=== PATIENT | male | born 1945 | race Caucasian/White ===

== ENCOUNTER 2018-08-15 10:46 | Emergency (ER) | payer MEDICARE, SELFPAY ==
[2018-08-15 11:45] VITALS: BP 168/78; PULSE 90; RESP 14; TEMP 36.9; O2SAT 97
--- NOTE | 2018-08-15 13:09 | ED.FALL ---
HPI - Fall <ELIZABETH Pineda - Last Filed: 08/15/18 22:15> General Chief Complaint: Fall Stated Complaint: FELL FRIDAY/POSSIBLE BROKEN RIBS Time Seen by Provider: 08/15/18 12:35 Source: patient Mode of arrival: ambulatory Limitations: no limitations History of Present Illness HPI Narrative: 72-year-old healthy male that is in everyday smoker here for complaint of pain into his right posterior ribcage after ground level fall 2 days ago. He states that he tripped over his pant leg when he was trying to take his pants off when he was going to bed and fell over and hit a piece of furniture to the right lateral ribcage. He denies any other injuries or concerns. He is ambulatory into the emergency room. He denies a cough or shortness of breath. He does state that he does have increased pain pain into that area with deep inspiration and with palpation. He states that when he holds still it helps with the discomfort. complaint: fall Related Data Previous Rx's Medication Instructions Recorded hydrocodone-acetaminophen [Scobey] 1 tab PO Q4-6H PRN #10 tab 08/15/18 Review of Systems <ELIZABETH Pineda - Last Filed: 08/15/18 22:15> Constitutional Denies chills, Denies fever(s), Denies lethargy and Denies weakness Eyes Denies change in vision, Denies eye discharge, Denies irritation and Denies loss of vision ENT Ears, Nose, Mouth, and Throat: Denies change in voice, Denies neck pain, Denies sore throat and Denies throat swelling Cardiovascular Denies chest pain, Denies irregular heart rhythm, Denies lightheadedness, Denies palpitations and Denies orthopnea Respiratory Denies wheezing Comments: Pain to right lateral posterior rib cage after ground level fall Gastrointestinal Gastrointestinal: Denies abdominal pain, Denies change in bowel habits, Denies diarrhea, Denies nausea and Denies vomiting Genitourinary Denies hematuria, Denies flank pain, Denies urinary incontinence and Denies urinary urgency Musculoskeletal Denies neck pain Integumentary/Breasts Denies pruritus, Denies erythema, Denies rash and Denies wounds Neurologic Denies confusion, Denies loss of vision and Denies weakness Psychiatric Denies anxiety, Denies confusion, Denies depression, Denies homicidal ideation and Denies suicidal ideation Endocrine Denies palpitations Hematologic/Lymphatic Denies easy bruising Allergic/Immunologic Denies urticaria, Denies throat swelling and Denies wheezing Exam <ELIZABETH Pineda - Last Filed: 08/15/18 22:15> Initial Vital Signs Initial Vital Signs: Vital Signs Temperature 98.5 F 08/15/18 11:45 Pulse Rate 90 08/15/18 11:45 Respiratory Rate 14 08/15/18 11:45 Blood Pressure 168/78 H 08/15/18 11:45 Pulse Oximetry 97 08/15/18 11:45 Const General: cooperative and well developed Nutritional Appearance: well nourished Orientation: alert, awake, oriented x3 and not confused HENMT Mouth: oral mucosae normal and moist mucous membranes Eyes Conjunctivae: conjunctivae normal Sclera: sclerae normal Pupils: PERRL EOM: EOM intact bilaterally Neck Neck: normal visual inspection, trachea midline, No lymphadenopathy, No midline deformity and No JVD Lymphatic: No lymphedema Chest Chest: normal inspection of the chest Resp Effort & Inspection: normal respiratory effort, able to speak in complete sentences, no respiratory distress and no use of accessory muscles Auscultation: clear to auscultation bilaterally, rales bilaterally, no rhonchi and no wheezes Cardio Rate: regular rate Rhythm: regular rhythm Heart Sounds: no click, no gallops, no murmurs and no rubs Pulses: normal peripheral pulses GI Inspection: non-distended Palpation: soft, no hepatosplenomegaly, No guarding, No pulsatile mass and No tender Auscultation: normal bowel sounds General: No CVA tenderness Skin General: no rashes or lesions noted, No jaundice and No petechiae Neuro General: alert, oriented x3, gait normal and no focal motor deficits Speech: speech normal <Zane Santillan DO - Last Filed: 08/16/18 07:24> Initial Vital Signs Initial Vital Signs: Vital Signs Temperature 98.5 F 08/15/18 11:45 Pulse Rate 90 08/15/18 11:45 Respiratory Rate 14 08/15/18 11:45 Blood Pressure 168/78 H 08/15/18 11:45 Pulse Oximetry 97 08/15/18 11:45 Course <ELIZABETH Pineda - Last Filed: 08/15/18 22:15> Orders Ordered: Discontinued Medications Hydrocodone Bitart/Acetaminophen (Scobey 5/325) 1 tab PO NOW ONE Stop: 08/15/18 13:18 Last Admin: 08/15/18 14:11 Dose: 1 tab Vital Signs - 8 hr 08/15/18 11:45 08/15/18 14:10 Temperature 98.5 F Pulse Rate 90 87 Respiratory Rate 14 15 Blood Pressure 168/78 H Blood Pressure [Right Arm] 158/88 H Pulse Oximetry 97 96 <Zane Santillan DO - Last Filed: 08/16/18 07:24> Orders Ordered: Discontinued Medications Hydrocodone Bitart/Acetaminophen (Scobey 5/325) 1 tab PO NOW ONE Stop: 08/15/18 13:18 Last Admin: 08/15/18 14:11 Dose: 1 tab Vital Signs - 8 hr 08/15/18 11:45 08/15/18 14:10 Temperature 98.5 F Pulse Rate 90 87 Respiratory Rate 14 15 Blood Pressure 168/78 H Blood Pressure [Right Arm] 158/88 H Pulse Oximetry 97 96 MDM - Fall <ELIZABETH Pineda - Last Filed: 08/15/18 22:15> Imaging Data Chest x-ray: Radiologist's impression: [place] [address] XRay Report Signed Patient: Edgardo Peraza LMR#: [id number] : 8Acct:[id number] Age/Sex: 72 / MDate of Service: 08/15/18 Loc: ED Accession Number: [id number] Procedure: XR ribs RT min 3V w CXR1V Ordering Provider: Braxton Plunkett PROCEDURE: XR RIBS RT MIN 3V W CXR 1V INDICATIONS: Pain into a posterior right ribcage status post ground level TECHNIQUE: 3 views of the right ribs were acquired, along with a single view chest. COMPARISON: None. FINDINGS: Surgical changes and devices: None. Bones and chest wall: No fractures or dislocations. No suspicious bony lesions. Overlying soft tissues appear unremarkable. Lungs and pleura: No pleural effusions or pneumothorax. Lungs appear clear. Mediastinum: Mediastinal contours appear normal. Heart size is normal. IMPRESSION: No visualized acute fracture or dislocation. However, if clinical concern and/or pain persist, short interval imaging followup in 7-10 days is recommended, as occult injury cannot be definitively excluded. Dictated by: Astrid Winters M.D. on 08/15/2018 at 14:00 Approved by: Astrid Winters M.D. on 08/15/2018 at 14:01 [facility] Narrative Medical decision making narrative: Chest x-ray and right rib cage x-ray was obtained was negative for any acute fractures. Signs and symptoms presents as contusion to the right posterior ribcage. On exam he had mild rales most likely secondary to smoking however he is provided with incentive spirometer by respiratory and instructed how to use it to prevent pneumonia. Use [id number] ibuprofen as needed for any discomfort. Small amount of Scobey is provided for breakthrough pain. Follow up with primary care provider later this week. For any worsening symptoms return to the emergency room. Discharge Plan Departure Patient Disposition: Home Clinical Impression: Contusion of rib on right side Discharge Date/Time: 08/15/18 14:35 Interventions: ED Discharge Assessment Last Done: 08/15/18 14:35 Instructions: DI for Rib Contusion Activity Restrictions/Additional Instructions: X-ray of the right ribcage and chest was obtained was negative for any acute fractures. Signs and symptoms presents as contusion to the rib area. Use [id number] ibuprofen as needed for any discomfort. Small amount of Scobey is prescribed for breakthrough pain use as directed no driving while on the Scobey. Follow up with primary care provider next week for re-evaluation. Use incentive spirometer as directed the this week to prevent pneumonia. For any worsening symptoms return to the emergency room. Prescriptions: New hydrocodone-acetaminophen [Scobey] 5-325 mg tablet 1 tab PO Q4-6H PRN (Reason: pain) Qty: 10 RF: 0 Referrals: [facility] [Provider Group] <Zane Santillan DO - Last Filed: 08/16/18 07:24> Cosign ED Attending Cathrynature Attestation: I was available for consultation during this patient's emergency department encounter
--- NOTE | 2018-08-15 13:17 | DI.RAD.S_ITS ---
PROCEDURE: XR RIBS RT MIN 3V W CXR 1V INDICATIONS: Pain into a posterior right ribcage status post ground level TECHNIQUE: 3 views of the right ribs were acquired, along with a single view chest. COMPARISON: None. FINDINGS: Surgical changes and devices: None. Bones and chest wall: No fractures or dislocations. No suspicious bony lesions. Overlying soft tissues appear unremarkable. Lungs and pleura: No pleural effusions or pneumothorax. Lungs appear clear. Mediastinum: Mediastinal contours appear normal. Heart size is normal. IMPRESSION: No visualized acute fracture or dislocation. However, if clinical concern and/or pain persist, short interval imaging followup in 7-10 days is recommended, as occult injury cannot be definitively excluded. Dictated by: Astrid Winters M.D. on 08/15/2018 at 14:00 Approved by: Astrid Winters M.D. on 08/15/2018 at 14:01
[2018-08-15 14:10] VITALS: BP 158/88; PULSE 87; RESP 15; O2SAT 96
[2018-08-15] MEDS: HYDROCODONE/ACET 5/325 TABLET 1 TAB PO (14:11)
--- NOTE | 2018-08-15 14:17 | ED_ITS ---
HPI - Fall <ELIZABETH Pineda - Last Filed: 08/15/18 22:15> General Chief Complaint: Fall Stated Complaint: FELL FRIDAY/POSSIBLE BROKEN RIBS Time Seen by Provider: 08/15/18 12:35 Source: patient Mode of arrival: ambulatory Limitations: no limitations History of Present Illness HPI Narrative: 72-year-old healthy male that is in everyday smoker here for complaint of pain into his right posterior ribcage after ground level fall 2 days ago. He states that he tripped over his pant leg when he was trying to take his pants off when he was going to bed and fell over and hit a piece of furniture to the right lateral ribcage. He denies any other injuries or concerns. He is ambulatory into the emergency room. He denies a cough or shortness of breath. He does state that he does have increased pain pain into that area with deep inspiration and with palpation. He states that when he holds still it helps with the discomfort. complaint: fall Related Data Previous Rx's Medication Instructions Recorded hydrocodone-acetaminophen [Stitzer] 1 tab PO Q4-6H PRN #10 tab 08/15/18 Review of Systems <ELIZABETH Pineda - Last Filed: 08/15/18 22:15> Constitutional Denies chills, Denies fever(s), Denies lethargy and Denies weakness Eyes Denies change in vision, Denies eye discharge, Denies irritation and Denies loss of vision ENT Ears, Nose, Mouth, and Throat: Denies change in voice, Denies neck pain, Denies sore throat and Denies throat swelling Cardiovascular Denies chest pain, Denies irregular heart rhythm, Denies lightheadedness, Denies palpitations and Denies orthopnea Respiratory Denies wheezing Comments: Pain to right lateral posterior rib cage after ground level fall Gastrointestinal Gastrointestinal: Denies abdominal pain, Denies change in bowel habits, Denies diarrhea, Denies nausea and Denies vomiting Genitourinary Denies hematuria, Denies flank pain, Denies urinary incontinence and Denies urinary urgency Musculoskeletal Denies neck pain Integumentary/Breasts Denies pruritus, Denies erythema, Denies rash and Denies wounds Neurologic Denies confusion, Denies loss of vision and Denies weakness Psychiatric Denies anxiety, Denies confusion, Denies depression, Denies homicidal ideation and Denies suicidal ideation Endocrine Denies palpitations Hematologic/Lymphatic Denies easy bruising Allergic/Immunologic Denies urticaria, Denies throat swelling and Denies wheezing Exam <ELIZABETH Pineda - Last Filed: 08/15/18 22:15> Initial Vital Signs Initial Vital Signs: Vital Signs Temperature 98.5 F 08/15/18 11:45 Pulse Rate 90 08/15/18 11:45 Respiratory Rate 14 08/15/18 11:45 Blood Pressure 168/78 H 08/15/18 11:45 Pulse Oximetry 97 08/15/18 11:45 Const General: cooperative and well developed Nutritional Appearance: well nourished Orientation: alert, awake, oriented x3 and not confused HENMT Mouth: oral mucosae normal and moist mucous membranes Eyes Conjunctivae: conjunctivae normal Sclera: sclerae normal Pupils: PERRL EOM: EOM intact bilaterally Neck Neck: normal visual inspection, trachea midline, No lymphadenopathy, No midline deformity and No JVD Lymphatic: No lymphedema Chest Chest: normal inspection of the chest Resp Effort & Inspection: normal respiratory effort, able to speak in complete sentences, no respiratory distress and no use of accessory muscles Auscultation: clear to auscultation bilaterally, rales bilaterally, no rhonchi and no wheezes Cardio Rate: regular rate Rhythm: regular rhythm Heart Sounds: no click, no gallops, no murmurs and no rubs Pulses: normal peripheral pulses GI Inspection: non-distended Palpation: soft, no hepatosplenomegaly, No guarding, No pulsatile mass and No tender Auscultation: normal bowel sounds General: No CVA tenderness Skin General: no rashes or lesions noted, No jaundice and No petechiae Neuro General: alert, oriented x3, gait normal and no focal motor deficits Speech: speech normal <Zane Santillan DO - Last Filed: 08/16/18 07:24> Initial Vital Signs Initial Vital Signs: Vital Signs Temperature 98.5 F 08/15/18 11:45 Pulse Rate 90 08/15/18 11:45 Respiratory Rate 14 08/15/18 11:45 Blood Pressure 168/78 H 08/15/18 11:45 Pulse Oximetry 97 08/15/18 11:45 Course <ELIZABETH Pineda - Last Filed: 08/15/18 22:15> Orders Ordered: Discontinued Medications Hydrocodone Bitart/Acetaminophen (Stitzer 5/325) 1 tab PO NOW ONE Stop: 08/15/18 13:18 Last Admin: 08/15/18 14:11 Dose: 1 tab Vital Signs - 8 hr 08/15/18 11:45 08/15/18 14:10 Temperature 98.5 F Pulse Rate 90 87 Respiratory Rate 14 15 Blood Pressure 168/78 H Blood Pressure [Right Arm] 158/88 H Pulse Oximetry 97 96 <Zane Santillan DO - Last Filed: 08/16/18 07:24> Orders Ordered: Discontinued Medications Hydrocodone Bitart/Acetaminophen (Stitzer 5/325) 1 tab PO NOW ONE Stop: 08/15/18 13:18 Last Admin: 08/15/18 14:11 Dose: 1 tab Vital Signs - 8 hr 08/15/18 11:45 08/15/18 14:10 Temperature 98.5 F Pulse Rate 90 87 Respiratory Rate 14 15 Blood Pressure 168/78 H Blood Pressure [Right Arm] 158/88 H Pulse Oximetry 97 96 MDM - Fall <ELIZABETH Pineda - Last Filed: 08/15/18 22:15> Imaging Data Chest x-ray: Radiologist's impression: [place] [address] XRay Report Signed Patient: Edgardo Peraza LMR#: [id number] : 8Acct:[id number] Age/Sex: 72 / MDate of Service: 08/15/18 Loc: ED Accession Number: [id number] Procedure: XR ribs RT min 3V w CXR1V Ordering Provider: Braxton Plunkett PROCEDURE: XR RIBS RT MIN 3V W CXR 1V INDICATIONS: Pain into a posterior right ribcage status post ground level TECHNIQUE: 3 views of the right ribs were acquired, along with a single view chest. COMPARISON: None. FINDINGS: Surgical changes and devices: None. Bones and chest wall: No fractures or dislocations. No suspicious bony lesions. Overlying soft tissues appear unremarkable. Lungs and pleura: No pleural effusions or pneumothorax. Lungs appear clear. Mediastinum: Mediastinal contours appear normal. Heart size is normal. IMPRESSION: No visualized acute fracture or dislocation. However, if clinical concern and/or pain persist, short interval imaging followup in 7-10 days is recommended , as occult injury cannot be definitively excluded. Dictated by: Astrid Winters M.D. on 08/15/2018 at 14:00 Approved by: Astrid Winters M.D. on 08/15/2018 at 14:01 [facility] Narrative Medical decision making narrative: Chest x-ray and right rib cage x-ray was obtained was negative for any acute fractures. Signs and symptoms presents as contusion to the right posterior ribcage. On exam he had mild rales most likely secondary to smoking however he is provided with incentive spirometer by respiratory and instructed how to use it to prevent pneumonia. Use over-the- counter ibuprofen as needed for any discomfort. Small amount of Stitzer is provided for breakthrough pain. Follow up with primary care provider later this week. For any worsening symptoms return to the emergency room. Discharge Plan Departure Patient Disposition: Home Clinical Impression: Contusion of rib on right side Discharge Date/Time: 08/15/18 14:35 Interventions: ED Discharge Assessment Last Done: 08/15/18 14:35 Instructions: DI for Rib Contusion Activity Restrictions/Additional Instructions: X-ray of the right ribcage and chest was obtained was negative for any acute fractures. Signs and symptoms presents as contusion to the rib area. Use over- the-counter ibuprofen as needed for any discomfort. Small amount of Stitzer is prescribed for breakthrough pain use as directed no driving while on the Stitzer. Follow up with primary care provider next week for re-evaluation. Use incentive spirometer as directed the this week to prevent pneumonia. For any worsening symptoms return to the emergency room. Prescriptions: New hydrocodone-acetaminophen [Stitzer] 5-325 mg tablet 1 tab PO Q4-6H PRN (Reason: pain) Qty: 10 RF: 0 Referrals: [facility] [Provider Group] <Zane Santillan DO - Last Filed: 08/16/18 07:24> Cosign ED Attending Cathrynature Attestation: I was available for consultation during this patient's emergency department encounter
== END 2018-08-15 14:35 | disposition home or self-care (01) ==
PROVIDERS: Emergency Provider Nurse Practitioner Family
DX: S20.211A Contusion of right front wall of thorax, initial encounter (principal); W01.190A Fall on same level from slipping, tripping and stumbling with subsequent striking against furniture, initial encounter
CPT/HCPCS: 71101; 99282; 99283

== ENCOUNTER 2019-05-19 12:07 | Inpatient (IN) | payer MEDICARE, SELFPAY ==
[2019-05-19] VITALS (22 sets, daily range): BP systolic 114–148; BP diastolic 65–88; PULSE 71–92; RESP 15–32; TEMP 36.3; O2SAT 92–100; BMI 22.7
--- NOTE | 2019-05-19 12:14 | DI.RAD.S_ITS ---
PROCEDURE: XR CHEST 1V INDICATIONS: left chest pain, hit ribs infall, tender. TECHNIQUE: One view of the chest was acquired. COMPARISON: None. FINDINGS: Surgical changes and devices: None. Lungs and pleura: Moderate size right-sided pneumothorax is seen measures up to 4.7 cm in critical dimension. Mild pulmonary vascular congestion is seen. No left-sided pneumothorax. No significant pleural effusion. Mediastinum: Mediastinal contours appear normal. Heart size is mildly enlarged.. Bones and chest wall: No suspicious bony lesions. Overlying soft tissues appear unremarkable. IMPRESSION: Moderate-sized right pneumothorax as above. Mild congestion. No pleural effusion. No left-sided pneumothorax. Findings were discussed with Dr. Benjamin in the ER at 12:30 PM on 05/19/19. Dictated by: Kevin Heredia M.D. on 05/19/2019 at 12:28 Approved by: Kevin Heredia M.D. on 05/19/2019 at 12:32
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
[2019-05-19] MEDS: MORPHINE 2 MG/ML INJ IV (12:21)
[2019-05-19] MEDS: SODIUM CHLORIDE 0.9% 1,000 ML 1000 ML IV (12:22)
[2019-05-19 12:40] LABS: Add Manual Diff / Slide Review NO; Basophils Absolute Auto 100 /uL (0-100); Basophils Percent Auto 1.1 % (0-2); Eosinophils Absolute Auto 300 /uL (0-450); Eosinophils Percent Auto 2.5 % (2-4); Hemoglobin 13.9 g/dL (13.5-17.5); Lymphocytes Absolute Auto 4300 /uL (1100-4500); Lymphocytes Percent Auto 31.7 % (25-40); Mean Corpuscular HGB Conc 33.9 % (30-36); Mean Corpuscular Hemoglobin 31.6 PG (26-34); Mean Corpuscular Volume 93.2 fL (80-100); Monocytes Absolute Auto 1900 /uL (0-900); Monocytes Percent Auto 14.4 % (3-14); Neutrophils Absolute Auto 6800 /uL (1500-7000); Neutrophils Percent Auto 50.3 % (50-75); Platelet Count 383 X10^3/uL (150-400); Red Cell Distribution Width 13.1 % (11.6-14.8); White Blood Cell Count 13.4 X10^3/uL (4.5-11.0)
[2019-05-19 12:46] LABS: Prothrombin Time 11.7 SECONDS (10.1-12.7)
[2019-05-19 12:49] LABS: PTT Partial Thromboplastin Tim 33 SECONDS (26.4-36.2)
[2019-05-19 12:52] LABS: Alanine Aminotransferase 29 IU/L (21-72); Albumin 4.6 g/dL (3.5-5.0); Albumin Globulin Ratio 1.4 (1.0-2.8); Alkaline Phosphatase 115 U/L (38-126); Aspartate Aminotransferase 56 IU/L (17-59); BUN Creatinine Ratio 8.3 (6-22); Blood Urea Nitrogen 5 mg/dL (9-20); Calcium 9.2 mg/dL (8.4-10.2); Carbon Dioxide 24 mmol/L (22-32); Chloride 94 mmol/L (98-107); Creatine Kinase 133 U/L (55-170); Estimated Glomerular Filt Rate > 60.0 mL/min (>60); Ethanol (ETOH) 22 mg/dL; Globulin 3.4 g/dL (1.7-4.1); Glucose 129 mg/dL (80-110); HEMOLYSIS < 15 (0-50); Lipase 87 U/L (23-300); Potassium 3.6 mmol/L (3.4-5.1); Sodium 132 mmol/L (137-145)
[2019-05-19 13:03] LABS: Troponin I < 0.012 ng/mL (0.01-0.034)
[2019-05-19] MEDS: PROPOFOL 200 MG/20 ML VIAL 70 MG IV (13:04)
--- NOTE | 2019-05-19 13:05 | PC.NURSE ---
all pt clothing removed @ 1335. Pt alert and oriented. Speaking full sentences. Rectal exam by Dr. Millard.
[2019-05-19 13:06] LABS: CKMB % Relative Index 2.6 % (1.5-5.0); Creatine Kinase MB 3.48 ng/mL (<2.37)
[2019-05-19 13:15] LABS: Lactate (Lactic Acid) 3.6 mmol/L (0.7-2.1)
--- NOTE | 2019-05-19 13:21 | DI.RAD.S_ITS ---
PROCEDURE: XR CHEST 1V INDICATIONS: Post chest tube TECHNIQUE: One view of the chest was acquired. COMPARISON: [facility], , XR CHEST 1V, 05/19/2019, 12:20. FINDINGS: Surgical changes and devices: Right-sided chest tube is seen. Lungs and pleura: There is interval decrease in size of patient's known right-sided pneumothorax. Small residual right apical pneumothorax is seen. Mediastinum: Mediastinal contours appear normal. Heart size is normal. Bones and chest wall: No suspicious bony lesions. Overlying soft tissues appear unremarkable. IMPRESSION: Interval placement of a right-sided chest tube with reexpansion of right lung. Tiny right apical residual pneumothorax. Left lung is clear. Dictated by: Kevin Heredia M.D. on 05/19/2019 at 13:48 Approved by: Kevin Heredia M.D. on 05/19/2019 at 13:48
[2019-05-19] MEDS: LORazepam 2 MG/ML INJ 1 MG IV (13:49)
[2019-05-19] MEDS: LIDOCAINE 2% INJ MDV 20 ML INJ (13:58)
--- NOTE | 2019-05-19 14:03 | PC.NURSE ---
Propofol given by Dr. Millard 40 @ 1312, 30 more at 1317 for a total of 70 mg.
--- NOTE | 2019-05-19 14:07 | PC.NURSE ---
After ativan,Pt resting comfortably. Respirations even and unlabored. Maintaining O2 saturation at 93 or Room Air.
--- NOTE | 2019-05-19 14:46 | PC.NURSE ---
pt resting comfortably. Respirations even and unlabored. Vital signs stable.
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
[2019-05-19 15:03] LABS: Reflexed Lactate in 2 Hours Y
[2019-05-19 15:49] LABS: Lactate 2HR (Lactic Acid Rflx) 1.7 mmol/L (0.7-2.1)
[2019-05-19] MEDS: MORPHINE 4 MG/ML INJ IV ×2 (17:13→20:53)
[2019-05-19] MEDS: MAGNESIUM SULFATE 2 GM, FOLIC ACID 1 MG, THIAMINE 100 MG, MULTIVITAMIN 10 ML in SODIUM ... IV (17:30)
[2019-05-19] MEDS: OXYCODONE/ACETAMINOPHEN 5/325 TABLET 2 TAB PO (18:43)
[2019-05-19] MEDS: SERTRALINE 50 MG TABLET 100 MG PO (20:52)
[2019-05-19] MEDS: GABAPENTIN 300 MG CAPSULE PO (20:52)
[2019-05-20 00:30] VITALS: BP 147/82; PULSE 83; RESP 19; TEMP 36.7; O2SAT 91
--- NOTE | 2019-05-20 00:35 | PC.NURSE ---
Chain Saw Mechanic Note: 0030: Awake, assisted to use urinal. Repositioned. HOB elevated [address] in lt arm with Banana bag infusing at 125cc/hr. Rt chest tube intact and secured; small amt serosanguinous drainage in tubing.
[2019-05-20] MEDS: OXYCODONE/ACETAMINOPHEN 5/325 TABLET 2 TAB PO ×3 (02:57→18:09)
[2019-05-20 04:00] VITALS: BP 122/70; PULSE 71; RESP 10; TEMP 37.3; O2SAT 92
[2019-05-20 05:30] LABS: Prothrombin Time 11.7 SECONDS (10.1-12.7)
--- NOTE | 2019-05-20 07:32 | DI.RAD.S_ITS ---
PROCEDURE: XR CHEST 1V INDICATIONS: f/u pneumothorax TECHNIQUE: One view of the chest was acquired. COMPARISON: [facility], CR, XR RIBS RT MIN 3V W CXR 1V, 08/15/2018, 12:59. [facility], CR, XR CHEST 1V, 05/19/2019, 13:25. FINDINGS: Surgical changes and devices: Right-sided basilar chest tube is unchanged in position. Lungs and pleura: Stable small right pneumothorax measuring 1.2 cm, previously 1.3 cm. No pneumothorax on the left. No pleural effusion. Mild right basilar atelectasis. Mediastinum: Mediastinal contours are unchanged. No midline shift. Heart size is normal. Bones and chest wall: No suspicious bony lesions. Overlying soft tissues appear unremarkable. IMPRESSION: Stable small right pneumothorax and position of the right basilar chest tube. Dictated by: Jesus Bear M.D. on 05/20/2019 at 8:27 Approved by: Jesus Bear M.D. on 05/20/2019 at 8:31
[2019-05-20 07:40] VITALS: BP 122/60; PULSE 81; RESP 16; TEMP 36.6; O2SAT 92
[2019-05-20] MEDS: GABAPENTIN 300 MG CAPSULE PO ×2 (07:40→20:48)
[2019-05-20] MEDS: hydrOXYzine pamoate 25 MG CAPSULE 50 MG PO (07:40)
[2019-05-20] MEDS: THIAMINE 100 MG TABLET PO (07:41)
[2019-05-20] MEDS: VENLAFAXINE ER 75 MG CAP PO (07:41)
[2019-05-20] MEDS: MORPHINE 4 MG/ML INJ IV ×3 (07:43→20:50)
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
[2019-05-20] MEDS: LORazepam 2 MG/ML INJ 0.5 MG IV (10:18)
[2019-05-20] MEDS: MULTIVIT,CALC,MINS/IRON/FOLIC 1 TABLET 1 TAB PO (10:18)
[2019-05-20 11:50] VITALS: BP 127/65; PULSE 93; RESP 20; TEMP 37.1; O2SAT 93
[2019-05-20 16:45] VITALS: BP 134/76; PULSE 80; RESP 15; TEMP 36.8; O2SAT 93
--- NOTE | 2019-05-20 17:50 | PM.PN.1 ---
Subjective Date Patient Seen: 05/20/19 Time Patient Seen: 17:50 Interval history: Breathing much better than yesterday. Much less pain. Exam Vital Signs (past 8 hours): - 05/20/19 11:50 05/20/19 16:45 Temperature 98.7 F 98.3 F Pulse Rate 93 H 80 Respiratory Rate 20 15 Blood Pressure 127/65 134/76 Pulse Oximetry 93 93 Oxygen Delivery Method Room Air Oxygen Flow Rate 2 Narrative Exam Narrative: Good air movement bilaterally. No air leak on exam. Good fluctuation in the water seal chamber with deep breathing. Objective Labs Result Diagrams: 05/19/19 12:15 05/19/19 12:15 Labs: Laboratory Results - last 24 hr 05/19/19 05/20/19 17:00 05:07 PT 11.7 INR 1.0 Nasal Screen MRSA (PCR) Negative for mrsa Assessment & Plan Assessment & Plan narrative: Traumatic pneumothorax. Will place tube to water seal and repeat x-ray in a.m.. If lung remains inflated will clamp tube in consider removing it later tomorrow. Quality VTE Deep Vein Thrombosis/Pulmonary Embolism Present on Admission: No
[2019-05-20] MEDS: PSYLLIUM HUSK 1 PACKET PO (18:22)
[2019-05-20 20:18] VITALS: BP 120/66; PULSE 86; RESP 20; TEMP 37; O2SAT 94
[2019-05-20] MEDS: SERTRALINE 50 MG TABLET 100 MG PO (20:48)
[2019-05-21] VITALS (7 sets, daily range): BP systolic 126–136; BP diastolic 66–83; PULSE 72–110; RESP 14–29; TEMP 36.3–36.9; O2SAT 90–96
[2019-05-21] MEDS: OXYCODONE/ACETAMINOPHEN 5/325 TABLET 2 TAB PO ×3 (00:41→15:55)
--- NOTE | 2019-05-21 07:54 | DI.RAD.S_ITS ---
PROCEDURE: XR CHEST 1V INDICATIONS: Follow-up for pneumothorax. Patient placed to water seal. TECHNIQUE: One view of the chest was acquired. COMPARISON: [facility], CR, XR RIBS RT MIN 3V W CXR 1V, 08/15/2018, 12:59. [facility], CR, XR CHEST 1V, 05/19/2019, 13:25. [facility], CR, XR CHEST 1V, 05/20/2019, 8:03. [facility], CR, XR CHEST 1V, 05/19/2019, 12:20. FINDINGS: Surgical changes and devices: There is a right thoracostomy check projecting to the right base. Lungs and pleura: A small right apical pneumothorax is present, stable compared to the last exam. Small right pleural effusion. Bilateral interstitial and airspace infiltrates are present. Mediastinum: Mediastinal contours appear normal. Heart size is normal. Bones and chest wall: No suspicious bony lesions. Overlying soft tissues appear unremarkable. IMPRESSION: 1. Stable small right apical pneumothorax. 2. Small right effusion. 3. Bilateral interstitial and airspace infiltrates are suspicious for pneumonia. Dictated by: Kevin Ryan M.D. on 05/21/2019 at 8:09 Approved by: Kevin Ryan M.D. on 05/21/2019 at 8:14
[2019-05-21] MEDS: THIAMINE 100 MG TABLET PO (08:33)
[2019-05-21] MEDS: GABAPENTIN 300 MG CAPSULE PO ×2 (08:33→20:52)
[2019-05-21] MEDS: PSYLLIUM HUSK 1 PACKET PO (08:34)
[2019-05-21] MEDS: VENLAFAXINE ER 75 MG CAP PO (08:34)
[2019-05-21] MEDS: MULTIVIT,CALC,MINS/IRON/FOLIC 1 TABLET 1 TAB PO (08:59)
[2019-05-21] MEDS: MORPHINE 4 MG/ML INJ IV ×2 (12:59→17:56)
--- NOTE | 2019-05-21 15:10 | DI.RAD.S_ITS ---
PROCEDURE: XR CHEST 1V INDICATIONS: chest tube clamped at 11am. r/o increase in pneumothorax TECHNIQUE: One view of the chest was acquired. COMPARISON: [facility], , XR CHEST 1V, 05/21/2019, 5:37. FINDINGS: Surgical changes and devices: Thoracostomy tube is redemonstrated at the right lung base. Lungs and pleura: Small right apical pneumothorax is redemonstrated and appears slightly increased in size when compared with the study from earlier today. There is a small right pleural effusion. Mediastinum: Mediastinal contours appear normal. Heart size is normal. Bones and chest wall: No suspicious bony lesions. Overlying soft tissues appear unremarkable. IMPRESSION: Slight increase in the size of the right apical pneumothorax when compared with the film from earlier today. Dictated by: Minnie Pickett M.D. on 05/21/2019 at 14:11 Approved by: Minnie Pickett M.D. on 05/21/2019 at 14:12
--- NOTE | 2019-05-21 15:16 | PC.NURSE ---
Received in bed, awake, alert, oriented. VSS. Describes 7/10 pain to R lateral chest wall, aggravated by coughing and movement. Sp02 > 90% on RA. Lung sounds diminished bilat. bases, with rhonchi noted R side, cleared with coughing. Chest tube draining small amt serosanguinous fluid. Order to clamp @ 1115. Follow-up CXR pending. Oral and IV medications given for pain management, to moderate effect. Voids per urinal. OOB to chair ~ 3 hours, tolerated well. Encouraging IS. Taking p.o. without difficulty. Discussed plan of care and pain management. Verbalized understanding.
--- NOTE | 2019-05-21 17:48 | PM.PN.1 ---
Subjective Date Patient Seen: 05/21/19 Time Patient Seen: 17:49 Interval history: The patient had a chest x-ray this afternoon having the tube clamped for 4 hours. Although the report stated that there was increase in the size, this change was minimal and could easily be explained by the degree of inspiration. One IN clamp the tube in observe the water seal chamber there was absolutely no bubbling though there was movement in the column of water. Therefore I pulled the chest tube. Exam Vital Signs (past 8 hours): - 05/21/19 11:50 05/21/19 16:12 Temperature 98.4 F Pulse Rate 110 H 94 H Respiratory Rate 21 15 Blood Pressure 136/78 128/74 Pulse Oximetry 96 95 Oxygen Delivery Method Room Air Oxygen Flow Rate 0 Narrative Exam Narrative: Wound looks fine. Moving air well bilaterally. Objective Labs Result Diagrams: 05/19/19 12:15 05/19/19 12:15 Assessment & Plan Assessment & Plan narrative: I have to send the patient home this evening but he stated after pull the tube that he is not able to walk. This is because of pain in his chest. Therefore we will have to work with PT and possibly get him out of here tomorrow. Quality VTE Deep Vein Thrombosis/Pulmonary Embolism Present on Admission: No
[2019-05-21] MEDS: KETOROLAC 30 MG/ML VIAL IV (18:36)
[2019-05-21] MEDS: SERTRALINE 50 MG TABLET 100 MG PO (20:52)
[2019-05-21] MEDS: LORazepam 2 MG/ML INJ IV (20:52)
--- NOTE | 2019-05-22 | DI.RAD.S_ITS ---
PROCEDURE: XR CHEST 2V INDICATIONS: increase in residual PNX post CT removal TECHNIQUE: 2 views of the chest were acquired. COMPARISON: [facility], CR, XR CHEST 3V, 05/22/2019, 8:14. FINDINGS: Surgical changes and devices: None. Lungs and pleura: Atelectasis is present at the right lung base. These small right apical pneumothorax is unchanged when compared with the plain film from earlier today. Mediastinum: Mediastinal contours are normal. Heart size is normal. Bones and chest wall: No suspicious bony abnormalities. Soft tissues appear unremarkable. IMPRESSION: Stable small right apical pneumothorax. Dictated by: Minnie Pickett M.D. on 05/22/2019 at 15:42 Approved by: Minnie Pickett M.D. on 05/22/2019 at 15:42
[2019-05-22 04:25] VITALS: BP 127/72; PULSE 94; RESP 16; TEMP 37.3; O2SAT 92
--- NOTE | 2019-05-22 07:52 | DI.RAD.S_ITS ---
PROCEDURE: XR CHEST 3V INDICATIONS: Follow-up pneumothorax after removal of tube TECHNIQUE: 2 views of the chest were acquired. COMPARISON: [facility], CR, XR CHEST 1V, 05/21/2019, 14:52. FINDINGS: Surgical changes and devices: The right basilar thoracostomy tube has been removed. Lungs and pleura: The right apical pneumothorax is slightly increased in size when compared with the study dated 05/21/19. Lung volumes are low. There is bilateral interstitial prominence. Mediastinum: Mediastinal contours are normal. Heart size is normal. Bones and chest wall: No suspicious bony abnormalities. Soft tissues appear unremarkable. IMPRESSION: Slight increase in the apical pneumothorax after right thoracostomy tube removal. Dictated by: Minnie Pickett M.D. on 05/22/2019 at 7:24 Approved by: Minnie Pickett M.D. on 05/22/2019 at 7:25
[2019-05-22 08:00] VITALS: BP 140/78; PULSE 100; RESP 15; TEMP 37.1; O2SAT 92
[2019-05-22] MEDS: OXYCODONE/ACETAMINOPHEN 5/325 TABLET 2 TAB PO ×2 (08:12→19:45)
[2019-05-22] MEDS: THIAMINE 100 MG TABLET PO (08:37)
[2019-05-22] MEDS: VENLAFAXINE ER 75 MG CAP PO (08:37)
[2019-05-22] MEDS: GABAPENTIN 300 MG CAPSULE PO (08:37)
[2019-05-22] MEDS: MULTIVIT,CALC,MINS/IRON/FOLIC 1 TABLET 1 TAB PO (08:37)
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
--- NOTE | 2019-05-22 11:00 | PT.IIE ---
Current Diagnoses Fracture of one rib, right side, initial encounter for closed fracture (05/19/19) Traumatic pneumothorax, initial encounter (05/19/19) Medical History (Last Updated 05/19/19 @ 14:52 by Garcia Contreras MD) Nose deformity, acquired (Resolved) Physical Therapy Inpatient Evaluation/Re-Eval M1 PT/OT-IP Prior Functional Status Start: 05/22/19 11:32 Freq: NEEDED Status: Active Protocol: Document 05/22/19 11:00 AB (Rec: 05/22/19 11:45 AB [id number]) Medical Review Prior Functional Status Medical History Reviewed Yes Communication able to make needs known Mobility and Gait pt staed that he is independent with all mobilities and ambulation without AD Social History Household Members family Living Arrangements House Number of Floors (Floors) One Floor Number of Stairs To Enter/Railing? 2 steps to enter with bilateral rails Home Environment Standard Height Toilet Walk in Shower M2 PT-IP Current Condition Start: 05/22/19 11:32 Freq: NEEDED Status: Active Protocol: Document 05/22/19 11:00 AB (Rec: 05/22/19 11:45 AB [id number]) Physical Therapy Current Condition Current Condition Evaluation Date 05/22/19 Treatment Diagnosis R pneumothorax, R rib fractures; difficulty in walking Onset Date 05/19/19 M3 PT-IP Subjective Start: 05/22/19 11:32 Freq: NEEDED Status: Active Protocol: Document 05/22/19 11:00 AB (Rec: 05/22/19 11:45 AB [id number]) Subjective Physical Therapy Visit Type Type Initial Evaluation Visit Start Time 11:00 Visit Stop Time 11:18 Total Visit Minutes 18 Number of RAG WILLOW OPERATOR Visits 0 Physical Therapy Visit Comments Patient Comments pt agreeable to do PT Therapy Pain Assessment Pain When Pain Assessed At Rest Pain Present Pain Present Pain Reported Location Right Ribs Intensity 3 Scale Used increases to 4 with coughing Pain Management Techniques Timing of Activity with Medications M4 PT-IP Mobility and Gait Start: 05/22/19 11:32 Freq: NEEDED Status: Active Protocol: Document 05/22/19 11:00 AB (Rec: 05/22/19 11:45 AB [id number]) PT-Bed Mobility Assessment Supine to Sit Supine to Sit Standby Assistance Sit to Supine Sit to Supine Standby Assistance PT-Transfer Assessment Sit to and From Stand Sit to and from Stand Standby Assistance Equipment Transfer Assistive Device Gait Belt Gait Assessment Gait Gait Assistance Required: Standby Assistance Distance (Feet) 100 Able to Maintain Weight Bearing Status Yes During Gait Assistive Devices Assistive Device None Gait Belt Orthotic/Prosthetic Devices or Brace: No Gait Deviations General Gait Pattern Ataxic Factors Limiting Gait Function Factors Limiting Gait Function Pain Poor Balance Comments Gait Comments pt ambulated ~ 100 ft without AD SBA. presents with slight ataxic gait with LLE crossing to midline making ambulation unsteady but pt able to rebalance self. pt is also impulsive Stair Climbing Assessment Evaluation Level of Assist On Stairs Standby Assistance Devices Stair Climbing Assistive Devices Right Railing Technique/Endurance Stair Climbing Direction Ascend and Descend Stair Climbing Technique Step to Step Number of Steps Climbed 1 Query Text: Stair Climbing Set # Repetitions (reps) 2 PT-Balance Assessment Sitting Balance and Reactions Static Sitting Balance Ability Good Dynamic Sitting Balance Ability Good Standing Balance and Reactions Static Standing Balance Ability Good Dynamic Standing Balance Ability Fair Device Used without AD M5 PT-IP Objective Assessments Start: 05/22/19 11:32 Freq: NEEDED Status: Active Protocol: Document 05/22/19 11:00 AB (Rec: 05/22/19 11:45 AB [id number]) Orientation Orientation/Cognition Level of Alertness Alert Orientation Name Place Situation Language Function Ability No Deficits Noted Safety Awareness Decreased Safety Awareness Gross Range of Motion Lower Extremity ROM Assessment Within Functional Limits Strength Lower Extremity Strength Assessment Within Functional Limits Coordination Assessment Gross Coordination Gross Coordination WNL Sensation Assessment Sensation Gross Sensation WNL Muscle Tone Muscle Tone WNL Yes M6 PT-IP Treatment Start: 05/22/19 11:32 Freq: NEEDED Status: Active Protocol: Document 05/22/19 11:00 AB (Rec: 05/22/19 11:45 AB [id number]) Physical Therapy Treatment Education Education Provided Safety M7 PT-IP Assessment and Plan Start: 05/22/19 11:32 Freq: NEEDED Status: Active Protocol: Document 05/22/19 11:00 AB (Rec: 05/22/19 11:45 AB [id number]) PT Summary Assessment and Plan Potential Rehabilitation Potential Good Status of Condition at Evaluation Stable Summary Impairments Pain Balance Bed Mobility Transfers Gait Activity Tolerance Assessment Summary pt requiring SBA with mobility but presents with unsteady gait. pt plans to go home. stated that his son can assist him if needed. pt may go home when medically stable. Goals Bed Mobility Goal Independent Transfer Goal Independent Gait Goal Independent Gait Distance 300 Other Goals up/down 2 steps without AD SBA Days to Meet Goals 3 Frequency of Treatment Frequency Of Treatment Once a Day Treatment Plan Physical Therapy Treatment Plan Bed Mobility Training Transfer Training Gait Training Therapeutic Exercise Balance Retraining Discharge Planning Neuromuscular Re-ed Other Recommendations and Next Treatment standing balance, long Focus distance ambulation without AD , stair climbing Recommendations To Nursing Amount of Assist Needed Standby Assistance Discharge Recommendations PT Discharge Recommendations Home
--- NOTE | 2019-05-22 11:39 | PM.PN.1 ---
Subjective Date Patient Seen: 05/22/19 Time Patient Seen: 10:30 Interval history: Doing well this morning, feels good, walking well, breathing comfortably and using IS diligently. AM CXR shows a slight increase in R apical PNX. Exam Vital Signs (past 8 hours): - 05/22/19 04:25 05/22/19 08:00 Temperature 99.1 F 98.7 F Pulse Rate 94 H 100 H Respiratory Rate 16 15 Blood Pressure 127/72 140/78 Pulse Oximetry 92 92 Oxygen Delivery Method Room Air Oxygen Flow Rate 0 Narrative Exam Narrative: AAO, NAD, male of healthy weight EOMI, MMM, no scleral icterus unlabored RA soft, nt/nd MAEW visible skin dry and intact Objective Imaging Chest x-ray: Radiologist's impression: IMPRESSION: Slight increase in the apical pneumothorax after right thoracostomy tube removal. Labs Result Diagrams: 05/19/19 12:15 05/19/19 12:15 Assessment & Plan Assessment & Plan narrative: - clinically doing well, on RA and comfortable, walking well; eager for home --> unfortunately CXR shows a small increase in the residual apical PNX, will need to re-image after interval to ensure no further enlargement --> pt motivated for home so will do later afternoon --> precautions reviewed - will take off tele and ok for floor move Quality VTE Deep Vein Thrombosis/Pulmonary Embolism Present on Admission: No
[2019-05-22 12:00] VITALS: BP 142/81; PULSE 83; RESP 24; TEMP 36.6; O2SAT 96
[2019-05-22 15:32] VITALS: BP 128/70; PULSE 88; RESP 19; TEMP 37.2
--- NOTE | 2019-05-22 20:07 | PC.NURSE ---
amanda sesay pt discharged to home with sister and brother in law. IV removed. Script given for oxycodone. Medicated with 2 Percocet prior to discharge. Read x-ray report to Dr. Boykin and received discharge instructions.
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
== END 2019-05-22 19:50 | disposition home or self-care (01) | DRG 201 ==
LOC: ED 12:29 → AC 13:48 → ICU 15:56
PROVIDERS: Admitting Provider Specialist; Emergency Provider Emergency Medicine; PCP Student in an Organized Health Care Education/Training Program; Visit Provider Specialist
DX: S27.0XXA Traumatic pneumothorax, initial encounter (principal); F10.20 Alcohol dependence, uncomplicated; Y90.1 Blood alcohol level of 20-39 mg/100 ml; F17.210 Nicotine dependence, cigarettes, uncomplicated; F41.9 Anxiety disorder, unspecified; W22.8XXA Striking against or struck by other objects, initial encounter
CPT/HCPCS: 32551; 36415; 36591; 71045; 71046; 71047; 80053; 80320; 82550; 82553; 83605; 83690; 84484; 85025; 85610; 85730; 86850; 86900; 86901; 87797; 93005; 94770; 96374; 96375; 97161; 99221; 99231; 99238; 99285; 99291; 99292; 99406; J1885; J2060; J2270; J2704; J3475

== ENCOUNTER → 2019-06-18 10:18 | Outpatient (CLI) | payer MEDICARE, SELFPAY ==
[2019-05-24 10:41] VITALS: BMI 22.7
--- NOTE | 2019-06-18 10:22 | DI.RAD.S_ITS ---
PROCEDURE: XR CHEST 2V INDICATIONS: cough, recent pneumothorax TECHNIQUE: 2 views of the chest were acquired. COMPARISON: [facility], CR, XR CHEST 1V, 05/19/2019, 12:20. [facility], CR, XR CHEST 1V, 05/19/2019, 13:25. [facility], CR, XR RIBS RT MIN 3V W CXR 1V, 08/15/2018, 12:59. [facility], CR, XR CHEST 1V, 05/21/2019, 5:37. [facility], CR, XR CHEST 2V, 05/22/2019, 16:32. FINDINGS: Surgical changes and devices: None. Lungs and pleura: Lungs are clear and interstitium is prominent. No pleural effusions or pneumothorax. Mediastinum: Mediastinal contours are normal. Heart size is normal. Bones and chest wall: Mildly displaced right sixth, seventh and eighth posterior lateral rib fractures. No suspicious bony abnormalities. Soft tissues appear unremarkable. IMPRESSION: 1. Resolved right pneumothorax. 2. Right sixth, seventh and eighth posterior lateral rib fractures. 3. Interstitial prominence similar to prior examination. Dictated by: Candido Hdez [facility] Interpreted: Addison Antonio MD on 06/18/2019 at 10:55 Approved by: Addison Antonio M.D. on 06/18/2019 at 14:33
== END ==
PROVIDERS: PCP Student in an Organized Health Care Education/Training Program; Visit Provider Hospitalist
DX: S22.41XA Multiple fractures of ribs, right side, initial encounter for closed fracture (principal); J93.9 Pneumothorax, unspecified
CPT/HCPCS: 71046

== ENCOUNTER → 2019-06-23 09:18 | Outpatient (CLI) | payer MEDICARE, SELFPAY ==
[2019-05-24 10:41] VITALS: BMI 22.7
[2019-06-23 09:58] LABS: Add Manual Diff / Slide Review NO; Basophils Absolute Auto 100 /uL (0-100); Basophils Percent Auto 1.3 % (0-2); Eosinophils Absolute Auto 500 /uL (0-450); Eosinophils Percent Auto 6.3 % (2-4); Hematocrit 40.4 % (41-53); Hemoglobin 13.8 g/dL (13.5-17.5); Lymphocytes Absolute Auto 2600 /uL (1100-4500); Lymphocytes Percent Auto 32.8 % (25-40); Mean Corpuscular Hemoglobin 31.6 PG (26-34); Mean Corpuscular Volume 92.9 fL (80-100); Monocytes Absolute Auto 1400 /uL (0-900); Monocytes Percent Auto 17.9 % (3-14); Neutrophils Absolute Auto 3400 /uL (1500-7000); Neutrophils Percent Auto 41.7 % (50-75); Platelet Count 386 X10^3/uL (150-400); Red Blood Cell Count 4.35 X10^6/uL (4.5-5.9)
[2019-06-23 10:45] LABS: Blood Urea Nitrogen 6 mg/dL (9-20); Calcium 9.5 mg/dL (8.4-10.2); Carbon Dioxide 29 mmol/L (22-32); Chloride 99 mmol/L (98-107); Estimated Glomerular Filt Rate > 60.0 mL/min (>60); Glucose 88 mg/dL (80-110); HEMOLYSIS < 15 (0-50); Potassium 5.5 mmol/L (3.4-5.1); Sodium 135 mmol/L (137-145)
== END ==
PROVIDERS: PCP Student in an Organized Health Care Education/Training Program; Visit Provider Hospitalist
DX: R05 Cough (principal)
CPT/HCPCS: 36415; 80048; 85025

== ENCOUNTER → 2019-06-30 11:17 | Outpatient (CLI) | payer MEDICARE, SELFPAY ==
[2019-05-24 10:41] VITALS: BMI 22.7
[2019-06-30 12:52] LABS: Blood Urea Nitrogen 4 mg/dL (9-20); Calcium 9.4 mg/dL (8.4-10.2); Carbon Dioxide 26 mmol/L (22-32); Chloride 94 mmol/L (98-107); Estimated Glomerular Filt Rate > 60.0 mL/min (>60); Glucose 105 mg/dL (80-110); HEMOLYSIS < 15 (0-50); Potassium 4.9 mmol/L (3.4-5.1); Sodium 133 mmol/L (137-145)
== END ==
PROVIDERS: PCP Student in an Organized Health Care Education/Training Program; Visit Provider Hospitalist
DX: R89.9 Unspecified abnormal finding in specimens from other organs, systems and tissues (principal)
CPT/HCPCS: 36415; 80048

== ENCOUNTER 2020-08-22 12:22 | Emergency (ER) | payer MEDICARE, SELFPAY ==
[2019-05-24 10:41] VITALS: BMI 22.7
[2020-08-22] VITALS (10 sets, daily range): BP systolic 169–205; BP diastolic 85–100; PULSE 77–84; RESP 14–18; TEMP 36.8; O2SAT 94–99
--- NOTE | 2020-08-22 12:34 | DI.RAD.S_ITS ---
PROCEDURE: XR CHEST 1V INDICATIONS: chest pain TECHNIQUE: One view of the chest was acquired. COMPARISON: [facility], CR, XR THORACIC SPINE 3V, 08/22/2020, 12:36. [facility], CR, XR CHEST 1V, 05/21/2019, 14:52. [facility], CR, XR CHEST 3V, 05/22/2019, 8:14. [facility], CR, XR CHEST 2V, 06/18/2019, 10:31. FINDINGS: Surgical changes and devices: None. Lungs and pleura: On this semiupright portable chest examination, no large pneumothorax or large pleural effusions are seen. No focal infiltrates are seen. Mediastinum: The cardiac contours are within normal limits. The aorta demonstrates calcification and tortuosity. Bones and chest wall: Age-appropriate bony degenerative changes are seen. Healing right posterolateral rib fractures are seen. No suspicious bony lesions. Overlying soft tissues appear unremarkable. IMPRESSION: No acute cardiopulmonary process is seen. Healing right posterolateral rib fractures. Dictated by: Giovanni Dunn M.D. on 08/22/2020 at 11:58 Approved by: Giovanni Dunn M.D. on 08/22/2020 at 12:02
--- NOTE | 2020-08-22 12:41 | DI.CT.S_ITS ---
PROCEDURE: CT HEAD/BRAIN WO CON INDICATIONS: fall / sycnope, right lower back pain TECHNIQUE: Noncontrast 4.5 mm thick angled axial sections acquired from the foramen magnum to the vertex, with coronal and sagittal reformats. For radiation dose reduction, the following was used: automated exposure control, adjustment of mA and/or kV according to patient size. COMPARISON: None. FINDINGS: Image quality: Excellent. CSF spaces: Basal cisterns are patent. No extra-axial fluid collections. The ventricles are symmetric in size and shape. Brain: No intracranial bleeds or masses. There is cerebral volume loss for age, with resultant ventricular and sulcal prominence. There are periventricular and deep white matter chronic small vessel ischemic changes. There is intracranial internal carotid artery atherosclerosis. Skull and face: Calvarium and visualized facial bones appear intact, without suspicious lesions. Sinuses: Visualized sinuses and mastoids are clear. IMPRESSION: No trauma found. Dictated by: Addison Antonio M.D. on 08/22/2020 at 13:13 Approved by: Addison Antonio M.D. on 08/22/2020 at 13:13
--- NOTE | 2020-08-22 12:41 | DI.RAD.S_ITS ---
PROCEDURE: XR THORACIC SPINE 3V INDICATIONS: fall / sycnope, right lower back pain TECHNIQUE: 3 views of the thoracic spine were acquired. COMPARISON: None. FINDINGS: Bones: No fractures or dislocations. No suspicious bony lesions. Twelve pairs of ribs are noted, and appear intact where visualized. Soft tissues: No paravertebral stripe thickening. IMPRESSION: Moderate degenerative disc disease, but no compression fracture found. Dictated by: Addison Antonio M.D. on 08/22/2020 at 13:12 Approved by: Addison Antonio M.D. on 08/22/2020 at 13:12
[2020-08-22 12:43] LABS: Add Manual Diff / Slide Review NO; Basophils Absolute Auto 100 /uL (0-100); Basophils Percent Auto 1.3 % (0-2); Eosinophils Absolute Auto 1300 /uL (0-450); Eosinophils Percent Auto 12.8 % (2-4); Hematocrit 41.1 % (41-53); Hemoglobin 13.7 g/dL (13.5-17.5); Lymphocytes Absolute Auto 2300 /uL (1100-4500); Lymphocytes Percent Auto 22.8 % (25-40); Mean Corpuscular HGB Conc 33.3 % (30-36); Mean Corpuscular Hemoglobin 32.4 PG (26-34); Mean Corpuscular Volume 97.4 fL (80-100); Monocytes Absolute Auto 1600 /uL (0-900); Neutrophils Absolute Auto 4700 /uL (1500-7000); Neutrophils Percent Auto 47.1 % (50-75); Platelet Count 333 X10^3/uL (150-400); Red Blood Cell Count 4.22 X10^6/uL (4.5-5.9); Red Cell Distribution Width 13.1 % (11.6-14.8)
[2020-08-22 12:45] LABS: Prothrombin Time 11.2 SECONDS (10.1-12.7)
[2020-08-22 12:47] LABS: PTT Partial Thromboplastin Tim 33 SECONDS (26.4-36.2)
[2020-08-22 12:49] LABS: Alanine Aminotransferase 26 IU/L (<50); Albumin 4.6 g/dL (3.5-5.0); Albumin Globulin Ratio 1.4 (1.0-2.8); Alkaline Phosphatase 83 U/L (38-126); Aspartate Aminotransferase 40 IU/L (17-59); BUN Creatinine Ratio 8.6 (6-22); Bilirubin Total 0.9 mg/dL (0.2-1.3); Blood Urea Nitrogen 5 mg/dL (9-20); Calcium 9.3 mg/dL (8.4-10.2); Carbon Dioxide 29 mmol/L (22-32); Chloride 95 mmol/L (98-107); Creatine Kinase 84 U/L (55-170); Estimated Glomerular Filt Rate > 60.0 mL/min (>60); Globulin 3.3 g/dL (1.7-4.1); Glucose 102 mg/dL (80-110); HEMOLYSIS 18 (0-50); Lipase 53 U/L (23-300); Magnesium 1.7 mg/dL (1.6-2.3); Potassium 4.4 mmol/L (3.4-5.1); Sodium 130 mmol/L (137-145); Total Protein 7.9 g/dL (6.3-8.2)
--- NOTE | 2020-08-22 12:49 | ED_ITS ---
HPI - Syncope <ELIZABETH Barakat - Last Filed: 08/22/20 14:36> General Chief Complaint: Syncope Stated Complaint: SEVERE PAIN IN BACK Time Seen by Provider: 08/22/20 12:24 Source: patient Mode of arrival: Ambulatory Limitations: no limitations History of Present Illness HPI narrative: This is a 74 year male, smoker, who has past medical history significant for depression, alcohol dependence, rib fracture with pneumothorax presents to ED with chief complain of right-sided thoracic back pain after he had on unwitnessed syncopal episode 3 days ago. Patient states he was on a step and fell backwards and hit his back on a chair. Patient currently not on blood thinner. Patient denies headache, vision change, neck pain, weakness to extremities. Patient denies chest pain, breathing difficulty, dizziness, weakness, unusual aura before passing out. He denies short of breath or di fficulty breathing, chest pain, weakness to extremities, incontinence for stools or urine, saddle anesthesia. Patient reports he had similar syncope about a year ago while he was cooking in the kitchen but had not workup done. Patient denies fever, chills, nausea or vomiting. Patient reports pain increases with coughing and movements and he rates pain as 6/10 while at rest. He had taken old hydrocodone 1 tab this morning for pain without much improvement. Patient reports takes about 13 beers a day. However, he reports had not taken more than usual before the syncope. Related Data Previous Rx's Medication Instructions Recorded hydrocodone-acetaminophen [[place]] 1 tab PO Q6H PRN #10 tab 08/22/20 lidocaine 1 patch TOP Q24H PRN #30 each 08/22/20 Allergies Allergy/AdvReac Type Severity Reaction Status Date / Time nut - unspecified Allergy Severe Anaphylaxis Verified 08/22/20 12:40 egg Allergy Unknown Verified 08/22/20 12:40 Penicillins Allergy Unknown Verified 08/22/20 12:40 Review of Systems <ELIZABETH Barakat - Last Filed: 08/22/20 14:36> Review of Systems Narrative: General: Denies fever, chills, fatigue, malaise, sweats. HEENT: Denies sinus pain, ear pain, sore throat, difficulty swallowing, dizziness. Respiratory: Denies dyspnea, cough, wheezing, hemoptysis, sputum. Cardiovascular: See HPI Gastrointestinal: Denies nausea, vomiting, abdominal pain, diarrhea, constipation, melena. : Denies dysuria, frequency, incontinence, hematuria, urinary retention. Musculoskeletal: See HPI Skin: Denies rash, skin lesions, or other. Neurologic: Denies weakness, headache, numbness, change in speech, confusion, seizures, incoordination. Psychiatric: No concerning psychosocial issues. 12-point review of systems is negative except for those stated above. Patient History <ELIZABETH Barakat - Last Filed: 08/22/20 14:36> Medical History Nose deformity, acquired (Resolved) Pneumothorax (Acute) Rib fracture (Acute) Social History household members: family Smoking Status: Current every day smoker alcohol intake: current Smoking Status: Current every day smoker alcohol intake frequency: 3 or more drinks per day Substance Use Type: marijuana Exam <ELIZABETH Barakat - Last Filed: 08/22/20 14:36> Narrative Exam Narrative: GEN: Alert, oriented x 3, well appearing and nourished, and mo derate distress from pain. Head: Normal cephalic, atraumatic. No step-offs, no meeks signs. No scalp or temporal tenderness, palpable mass or rash. EYES: Pupils are equal, round, and reactive to light and accommodation. Extraocular muscles are intact bilaterally. There is no subconjunctival hemorrhage, exudate and sclera non-icteric. ENT: Bilateral auditory canals and tympanic membranes clear without drainage. No hemotympanum. Hearing grossly intact. Nose without bleeding, purulent discharge or deviation. Facial sinuses nontender to palpate. Mucous membrane moist, no mucosal lesion. Throat without erythema, tonsillar hypertrophy or exudate. Uvula in midline, airway patent. Neck: Trachea in midline. No JVD, non-tender without lymphadenopathy. No masses or thyroid megaly. Supple, non-tender, no step-offs and no meningeal signs. CARDIAC: Normal regular rate and rhythm without murmurs, gallops, or rubs. No chest wall tenderness. No peripheral edema, cyanosis or pallor. Capillary refill is less than 2 seconds. RESPIRATORY: Lungs sounds mild rhonchus in all lobes to auscultate. No cough, wheezes, stridor, respiratory distress, increase work of breathing, or accessary muscle used. ABD: Abdomen soft, nontender and non-distended. No guarding or rebound tenderness to palpate. Bowel sounds are normal in all 4 quadrants. There is no palpable masses or organomegaly. EXT: Full painless ROM of all extremities with no loss of sensation, strength, effusion or edema. SKIN: Warm, dry, normal color for patient. No erythema, lesions or rash over visible areas. BACK: Right-sided thoracic paraspinal tenderness to palpate. No mass, erythema, rashes, deformity appreciated. NEUROLOGICAL: Alert and oriented to place, time and person. Sensation and motor function intact bilaterally. No facial droops, dysphasia. PSYCHIATRIC: Good judgement and reason, without hallucinations, abnormal affect or abnormal behaviors during the examination. Patient is not suicidal. Initial Vital Signs Initial Vital Signs: Vital Signs Temperature 98.3 F 08/22/20 12:25 Pulse Rate 84 08/22/20 12:25 Respiratory Rate 18 08/22/20 12:25 Blood Pressure 205/98 H 08/22/20 12:25 Pulse Oximetry 98 08/22/20 12:25 <Javon Mohan DO - Last Filed: 08/23/20 07:10> Initial Vital Signs Initial Vital Signs: Vital Signs Temperature 98.3 F 08/22/20 12:25 Pulse Rate 84 08/22/20 12:25 Respiratory Rate 18 08/22/20 12:25 Blood Pressure 205/98 H 08/22/20 12:25 Pulse Oximetry 98 08/22/20 12:25 Scores <ELIZABETH Barakat - Last Filed: 08/22/20 14:36> GCS [place] coma scale eye opening: Spontaneous [place] coma scale verbal response: Orientated [place]isha coma scale motor response: Obey commands [place] coma scale total score: 15 HEART Score Heart Score history: Moderately Suspicious Heart Score EKG: Non-Specific repolarization disturbance Heart Score Age: > or = 65 years old Heart Score risk factors: 1-2 risk factors Nexus Score for C-Spine Focal Neurologic deficit present: No Midline spinal tenderness present: No Altered level of conciousness present: No Intoxication present: No Distracting Injury Present: No Nexus Criteria for C-spine: 0 Course <Eddie ELIZABETH Jacinto - Last Filed: 08/22/20 14:36> Orders Ordered: Discontinued Medications Hydromorphone HCl (Dilaudid) 0.5 mg IV NOW ONE Stop: 08/22/20 12:46 Last Admin: 08/22/20 13:06 Dose: 0.5 mg Documented by: OSCAR Magnesium Sulfate 2 gm/ Folic Acid 1 mg/ Thiamine HCl 100 mg / Multivitamins 10 ml/ Sodium Chloride 1,015.2 mls @ 250 mls/hr IV NOW ONE Stop: 08/22/20 16:59 Last Infusion: 08/22/20 14:35 Dose: 0 mls/hr Documented by: Infusion: 08/22/20 14:01 Dose: 500 mls/hr Documented by: Admin: 08/22/20 13:36 Dose: 250 mls/hr Documented by: MIKE Ketorolac Tromethamine (Toradol) 15 mg IV NOW ONE Stop: 08/22/20 13:42 Last Admin: 08/22/20 13:55 Dose: 15 mg Documented by: VIRGINIE Lidocaine (Lidoderm) 1 each TOP NOW ONE Stop: 08/22/20 13:42 Last Admin: 08/22/20 13:55 Dose: 1 each Documented by: VIRGINIE Reevaluation(s) Reevaluation #1: Discussed patient requires workup done for syncope and staying in the hospital at least overnight for this. Patient strongly declined the recommendation and states I need to go home I am not staying. Mother was involved in discussion and suggested patient to stay at least overnight for recommended testings but patient declined this. Patient demonstrated capacity to make medical decision. He does not have slurred speech and ambulated into hospital in stable gait. We reviewed risk and benefit and possible consequences with patient and he verbalized understanding and states will follow-up with Dr. Mckee. Time: 14:20 Vital Signs Vital signs: Vital Signs - 8 hr 08/22/20 12:25 08/22/20 12:29 08/22/20 12:30 Temperature 98.3 F Pulse Rate 84 83 84 Respiratory Rate 18 15 15 Blood Pressure 205/98 H 182/100 H Pulse Oximetry 98 98 99 08/22/20 12:45 08/22/20 13:02 08/22/20 13:04 Temperature Pulse Rate 79 77 77 Respiratory Rate 17 15 Blood Pressure 172/92 H 177/89 H Pulse Oximetry 97 96 95 08/22/20 13:15 08/22/20 13:30 08/22/20 13:45 Temperature Pulse Rate 77 78 78 Respiratory Rate 17 15 18 Blood Pressure 175/85 H 176/88 H 169/85 H Pulse Oximetry 95 95 94 08/22/20 14:00 Temperature Pulse Rate 77 Respiratory Rate 14 Blood Pressure Pulse Oximetry 95 <Javon Mohan DO - Last Filed: 08/23/20 07:10> Orders Ordered: Discontinued Medications Hydromorphone HCl (Dilaudid) 0.5 mg IV NOW ONE Stop: 08/22/20 12:46 Last Admin: 08/22/20 13:06 Dose: 0.5 mg Documented by: OSCAR Magnesium Sulfate 2 gm/ Folic Acid 1 mg/ Thiamine HCl 100 mg / Multivitamins 10 ml/ Sodium Chloride 1,015.2 mls @ 250 mls/hr IV NOW ONE Stop: 08/22/20 16:59 Last Infusion: 08/22/20 14:35 Dose: 0 mls/hr Documented by: Infusion: 08/22/20 14:01 Dose: 500 mls/hr Documented by: Admin: 08/22/20 13:36 Dose: 250 mls/hr Documented by: MIKE Ketorolac Tromethamine (Toradol) 15 mg IV NOW ONE Stop: 08/22/20 13:42 Last Admin: 08/22/20 13:55 Dose: 15 mg Documented by: VIRGINIE Lidocaine (Lidoderm) 1 each TOP NOW ONE Stop: 08/22/20 13:42 Last Admin: 08/22/20 13:55 Dose: 1 each Documented by: VIRGINIE Vital Signs Vital signs: Vital Signs - 8 hr 08/22/20 12:25 08/22/20 12:29 08/22/20 12:30 Temperature 98.3 F Pulse Rate 84 83 84 Respiratory Rate 18 15 15 Blood Pressure 205/98 H 182/100 H Pulse Oximetry 98 98 99 08/22/20 12:45 08/22/20 13:02 08/22/20 13:04 Temperature Pulse Rate 79 77 77 Respiratory Rate 17 15 Blood Pressure 172/92 H 177/89 H Pulse Oximetry 97 96 95 08/22/20 13:15 08/22/20 13:30 08/22/20 13:45 Temperature Pulse Rate 77 78 78 Respiratory Rate 17 15 18 Blood Pressure 175/85 H 176/88 H 169/85 H Pulse Oximetry 95 95 94 08/22/20 14:00 Temperature Pulse Rate 77 Respiratory Rate 14 Blood Pressure Pulse Oximetry 95 MDM - Syncope <Eddie Varela-AnithaELIZABETH - Last Filed: 08/22/20 14:36> Differential Diagnosis Differential diagnosis: Likely dehydration and other (Anemia, arrhythmia, seizure, CVA, alcohol intoxication) Medical Records Attestation: I reviewed the patient's medical records. Lab Data Attestation: I reviewed the patient's lab results. Result diagrams: 08/22/20 12:32 08/22/20 12:32 Labs: Lab Results 08/22/20 08/22/20 08/22/20 Range/Units 12:32 12:32 12:32 WBC 10.0 (4.5-11.0) X10^3/uL RBC 4.22 L (4.5-5.9) X10^6/uL Hgb 13.7 (13.5-17.5) g/dL Hct 41.1 (41-53) % MCV 97.4 (80-100) fL MCH 32.4 (26-34) PG MCHC 33.3 (30-36) % RDW 13.1 (11.6-14.8) % Plt Count 333 (150-400) X10^3/uL Neut % (Auto) 47.1 L (50-75) % Lymph % (Auto) 22.8 L (25-40) % [place] % (Auto) 16.0 H (3-14) % Eos % (Auto) 12.8 H (2-4) % Baso % (Auto) 1.3 (0-2) % Neut # (Auto) 4700 (7315-4634) /uL Lymph # (Auto) 2300 (5041-3636) /uL [place] # (Auto) 1600 H (0-900) /uL Eos # (Auto) 1300 H (0-450) /uL Baso # (Auto) 100 (0-100) /uL PT 11.2 (10.1-12.7) SECONDS INR 1.0 (0.9-1.3) APTT 33 (26.4-36.2) SECONDS Sodium 130 L (137-145) mmol/L Potassium 4.4 (3.4-5.1) mmol/L Chloride 95 L (98-107) mmol/L Carbon Dioxide 29 (22-32) mmol/L BUN 5 L (9-20) mg/dL Creatinine 0.58 L (0.66-1.25) mg/dL Estimated GFR > 60.0 (>60) mL/min BUN/Creatinine Ratio 8.6 (6-22) Glucose 102 (80-110) mg/dL Calcium 9.3 (8.4-10.2) mg/dL Magnesium 1.7 (1.6-2.3) mg/dL Total Bilirubin 0.9 (0.2-1.3) mg/dL AST 40 (17-59) IU/L ALT 26 (<50) IU/L Alkaline Phosphatase 83 (38-126) U/L Total Creatine Kinase 84 (55-170) U/L CK-MB (CK-2) TNP CK-MB (CK-2) Rel Index TNP Troponin I < 0.012 (0.01-0.034) ng/mL Total Protein 7.9 (6.3-8.2) g/dL Albumin 4.6 (3.5-5.0) g/dL Globulin 3.3 (1.7-4.1) g/dL Albumin/Globulin Ratio 1.4 (1.0-2.8) Lipase 53 (23-300) U/L Ethyl Alcohol ( - 10) mg/dL //20 Range/Units 12:32 WBC (4.5-11.0) X10^3/uL RBC (4.5-5.9) X10^6/uL Hgb (13.5-17.5) g/dL Hct (41-53) % MCV (80-100) fL MCH (26-34) PG MCHC (30-36) % RDW (11.6-14.8) % Plt Count (150-400) X10^3/uL Neut % (Auto) (50-75) % Lymph % (Auto) (25-40) % [place] % (Auto) (3-14) % Eos % (Auto) (2-4) % Baso % (Auto) (0-2) % Neut # (Auto) (6529-9596) /uL Lymph # (Auto) (1272-6165) /uL [place] # (Auto) (0-900) /uL Eos # (Auto) (0-450) /uL Baso # (Auto) (0-100) /uL PT (10.1-12.7) SECONDS INR (0.9-1.3) APTT (26.4-36.2) SECONDS Sodium (137-145) mmol/L Potassium (3.4-5.1) mmol/L Chloride (98-107) mmol/L Carbon Dioxide (22-32) mmol/L BUN (9-20) mg/dL Creatinine (0.66-1.25) mg/dL Estimated GFR (>60) mL/min BUN/Creatinine Ratio (6-22) Glucose (80-110) mg/dL Calcium (8.4-10.2) mg/dL Magnesium (1.6-2.3) mg/dL Total Bilirubin (0.2-1.3) mg/dL AST (17-59) IU/L ALT (<50) IU/L Alkaline Phosphatase (38-126) U/L Total Creatine Kinase (55-170) U/L CK-MB (CK-2) CK-MB (CK-2) Rel Index Troponin I (0.01-0.034) ng/mL Total Protein (6.3-8.2) g/dL Albumin (3.5-5.0) g/dL Globulin (1.7-4.1) g/dL Albumin/Globulin Ratio (1.0-2.8) Lipase (23-300) U/L Ethyl Alcohol < 10 ( - 10) mg/dL Imaging Data CT scan - head: Radiologist's Impression: [address] [address] [address] Scan Report Signed Patient: Edgardo Peraza LMR#: [id number] : 8Acct:[id number] Age/Sex: 74 / MDate of Service: 08/22/20 Loc: ED Accession Number: [id number] Procedure: CT head/brain wo con Ordering Provider: Eddie Jacinto PROCEDURE: CT HEAD/BRAIN WO CON INDICATIONS: fall / sycnope, right lower back pain TECHNIQUE: Noncontrast 4.5 mm thick angled axial sections acquired from the foramen magnum to the vertex, with coronal and sagittal reformats. For radiation dose reduction, the following was used: automated exposure control, adjustment of mA and/or kV according to patient size. COMPARISON: None. FINDINGS: Image quality: Excellent. CSF spaces: Basal cisterns are patent. No extra-axial fluid collections. The ventricles are symmetric in size and shape. Brain: No intracranial bleeds or masses. There is cerebral volume loss for age, with resultant ventricular and sulcal prominence. There are periventricular and deep white matter chronic small vessel ischemic changes. There is intracranial internal carotid artery atherosclerosis. Skull and face: Calvarium and visualized facial bones appear intact, without suspicious lesions. Sinuses: Visualized sinuses and mastoids are clear. IMPRESSION: No trauma found. Dictated by: Addison Antonio M.D. on 08/22/2020 at 13:13 Approved by: Addison Antonio M.D. on 08/22/2020 at 13:13 Chest x-ray: Radiologist's Impression: Edgardo Peraza 74 M [address] [place] [address] XRay Report Signed Patient: Edgardo Peraza LMR#: [id number] : 8Acct:[id number] Age/Sex: 74 / MDate of Service: 08/22/20 Loc: ED Accession Number: [id number] Procedure: XR chest 1V Ordering Provider: Eddie Jacinto [facility] PROCEDURE: XR CHEST 1V INDICATIONS: chest pain TECHNIQUE: One view of the chest was acquired. COMPARISON: [facility], CR, XR THORACIC SPINE 3V, 08/22/2020, 12:36. [facility], CR, XR CHEST 1V, 05/21/2019, 14:52. [facility], CR, XR CHEST 3V, 05/22/2019, 8:14. [facility], CR, XR CHEST 2V, 06/18/2019, 10:31. FINDINGS: Surgical changes and devices: None. Lungs and pleura: On this semiupright portable chest examination, no large pneumothorax or large pleural effusions are seen. No focal infiltrates are seen. Mediastinum: The cardiac contours are within normal limits. The aorta demonstrates calcification and tortuosity. Bones and chest wall: Age-appropriate bony degenerative changes are seen. Healing right posterolateral rib fractures are seen. No suspicious bony lesions. Overlying soft tissues appear unremarkable. IMPRESSION: No acute cardiopulmonary process is seen. Healing right posterolateral rib fractures. Dictated by: Giovanni Dunn M.D. on 08/22/2020 at 11:58 Approved by: Giovanni Dunn M.D. on 08/22/2020 at 12:02 XR-Thoracic spine: Radiologist's Impression: [address] [address] XRay Report Signed Patient: Edgardo Peraza LMR#: [id number] : 8Acct:[id number] Age/Sex: 74 / MDate of Service: 08/22/20 Loc: ED Accession Number: [id number] Procedure: XR thoracic spine 3V Ordering Provider: Eddie Jacinto PROCEDURE: XR THORACIC SPINE 3V INDICATIONS: fall / sycnope, right lower back pain TECHNIQUE: 3 views of the thoracic spine were acquired. COMPARISON: None. FINDINGS: Bones: No fractures or dislocations. No suspicious bony lesions. Twelve pairs of ribs are noted, and appear intact where visualized. Soft tissues: No paravertebral stripe thickening. IMPRESSION: Moderate degenerative disc disease, but no compression fracture found. Dictated by: Addison Antonio M.D. on 08/22/2020 at 13:12 Approved by: Addison Antonio M.D. on 08/22/2020 at 13:12 ECG Data Attestation: I personally reviewed and interpreted this ECG as follows: Prior ECG tracings: available for review Interpretation: Sinus rhythm rate at 79. Normal [place]. LA interval 162, QRS duration 68, QT/QTC 346/396. Peak T waves, symmetric T waves. #2 EKG Sinus rhythm rate at 79. Normal [place]. LA interval 164, QRS duration 64, QT/QTC 352/403. Peaked T-waves in V3 and V4. ECG tracing similar to previous ones. MDM Narrative Medical decision making narrative: This is a 74-year-old gentleman who presents to ED with right mid to low thoracic pain after he had a unprovoked syncopal episode 3 days ago. Patient had another syncope about a year ago but never had on workup done for this. Patient denies chest pain, breathing difficulty, co ugh, fever, headache, vision change, weakness to extremities, or facial droops. EKG sinus rhythm without acute ST changes and similar to previous ECG tracings. Cardiac enzymes were negative. Patient is afebrile and slightly hypertensive. Chest x-ray without acute findings but shows healing right posterior lateral rib fractures. Thoracic spine shows no fractures. Head CT without intracranial bleeds or masses. Labs shows slight hyponatremia and hypochloremia of 130 and 95, otherwise unremarkable. Stable H&H 13.7/41.1. Patient received 0.5 of Dilaudid for initial pain management. Patient also received IV Toradol and lidocaine patch the patient found to be helpful. Recommended patient to stay for syncope workup done which patient declined and decided to leave Against Medical Advice. Patient states he will follow-up with Dr. Mckee as outpatient work up. Patient informed he can return to ED any time with any concerns. We discussed in details about not to mix alcohol and narcoti c pain medication due to increased sedation and decreased respiratory drive and patient verbalized understanding. Strict return precautions were discussed with patient and he verbalized understanding. Dr. Mohan consulted with physical findings, lab tests, imaging test, and disposition plan. <Javon Mohan, DO - Last Filed: 08/23/20 07:10> Lab Data Labs: Lab Results 08/22/20 08/22/20 08/22/20 Range/Units 12:32 12:32 12:32 WBC 10.0 (4.5-11.0) X10^3/uL RBC 4.22 L (4.5-5.9) X10^6/uL Hgb 13.7 (13.5-17.5) g/dL Hct 41.1 (41-53) % MCV 97.4 (80-100) fL MCH 32.4 (26-34) PG MCHC 33.3 (30-36) % RDW 13.1 (11.6-14.8) % Plt Count 333 (150-400) X10^3/uL Neut % (Auto) 47.1 L (50-75) % Lymph % (Auto) 22.8 L (25-40) % [place] % (Auto) 16.0 H (3-14) % Eos % (Auto) 12.8 H (2-4) % Baso % (Auto) 1.3 (0-2) % Neut # (Auto) 4700 (3944-7911) /uL Lymph # (Auto) 2300 (6824-2545) /uL [place] # (Auto) 1600 H (0-900) /uL Eos # (Auto) 1300 H (0-450) /uL Baso # (Auto) 100 (0-100) /uL PT 11.2 (10.1-12.7) SECONDS INR 1.0 (0.9-1.3) APTT 33 (26.4-36.2) SECONDS Sodium 130 L (137-145) mmol/L Potassium 4.4 (3.4-5.1) mmol/L Chloride 95 L (98-107) mmol/L Carbon Dioxide 29 (22-32) mmol/L BUN 5 L (9-20) mg/dL Creatinine 0.58 L (0.66-1.25) mg/dL Estimated GFR > 60.0 (>60) mL/min BUN/Creatinine Ratio 8.6 (6-22) Glucose 102 (80-110) mg/dL Calcium 9.3 (8.4-10.2) mg/dL Magnesium 1.7 (1.6-2.3) mg/dL Total Bilirubin 0.9 (0.2-1.3) mg/dL AST 40 (17-59) IU/L ALT 26 (<50) IU/L Alkaline Phosphatase 83 (38-126) U/L Total Creatine Kinase 84 (55-170) U/L CK-MB (CK-2) TNP CK-MB (CK-2) Rel Index TNP Troponin I < 0.012 (0.01-0.034) ng/mL Total Protein 7.9 (6.3-8.2) g/dL Albumin 4.6 (3.5-5.0) g/dL Globulin 3.3 (1.7-4.1) g/dL Albumin/Globulin Ratio 1.4 (1.0-2.8) Lipase 53 (23-300) U/L Ethyl Alcohol ( - 10) mg/dL 08/22/20 Range/Units 12:32 WBC (4.5-11.0) X10^3/uL RBC (4.5-5.9) X10^6/uL Hgb (13.5-17.5) g/dL Hct (41-53) % MCV (80-100) fL MCH (26-34) PG MCHC (30-36) % RDW (11.6-14.8) % Plt Count (150-400) X10^3/uL Neut % (Auto) (50-75) % Lymph % (Auto) (25-40) % [place] % (Auto) (3-14) % Eos % (Auto) (2-4) % Baso % (Auto) (0-2) % Neut # (Auto) (6323-2713) /uL Lymph # (Auto) (4660-2708) /uL [place] # (Auto) (0-900) /uL Eos # (Auto) (0-450) /uL Baso # (Auto) (0-100) /uL PT (10.1-12.7) SECONDS INR (0.9-1.3) APTT (26.4-36.2) SECONDS Sodium (137-145) mmol/L Potassium (3.4-5.1) mmol/L Chloride (98-107) mmol/L Carbon Dioxide (22-32) mmol/L BUN (9-20) mg/dL Creatinine (0.66-1.25) mg/dL Estimated GFR (>60) mL/min BUN/Creatinine Ratio (6-22) Glucose (80-110) mg/dL Calcium (8.4-10.2) mg/dL Magnesium (1.6-2.3) mg/dL Total Bilirubin (0.2-1.3) mg/dL AST (17-59) IU/L ALT (<50) IU/L Alkaline Phosphatase (38-126) U/L Total Creatine Kinase (55-170) U/L CK-MB (CK-2) CK-MB (CK-2) Rel Index Troponin I (0.01-0.034) ng/mL Total Protein (6.3-8.2) g/dL Albumin (3.5-5.0) g/dL Globulin (1.7-4.1) g/dL Albumin/Globulin Ratio (1.0-2.8) Lipase (23-300) U/L Ethyl Alcohol < 10 ( - 10) mg/dL Discharge Plan Departure Patient Disposition: Left Against Medical Advice Clinical Impression: Decreased renal function Syncope Qualifiers: Syncope type: unspecified Qualified Code(s): R55 - Syncope and collapse Back contusion Qualifiers: Encounter type: initial encounter Laterality: right Qualified Code(s): S20.221A - Contusion of right back wall of thorax, initial encounter Discharge Date/Time: 08/22/20 14:37 Instructions: DI for Syncope in Adults (Fainting), DI for Thoracic Back Pain Activity Restrictions/Additional Instructions: You have been diagnosed with [right thoracic back like from contusion after the fall with unprovoked syncopal episode. Thoracic spine x-ray Test does not show acute findings. Chest x-ray without acute findings. Slightly low in sodium and chloride level. Renal function is slightly decreased but in your baseline. Cardiac enzymes were negative.]. You decided to leave against Medical advice. What to do: *Take your medications as directed. Please take [id number] Tylenol and or Motrin as needed for discomfort. Tylenol 650 up to 3 to 4 times a day as needed. Ibuprofen 400-600 mg up to 3 to 4 times a day as needed for pain with food to decrease GI irritations. Please use lidocaine patch on affected site which stays on for 12 hours and off for 12 hours. If this is too expensive to moss picker, you can use [id number] 4% lidocaine patch. [place] is narcotic pain medication and please use for severe pain. He can cause increasing drowsiness so please do not drink alcohol, drive, or operate heavy equipments while your taking this. Also he can cause constipation so please take precautions by increasing hydration, fibers, or use [id number] stool softener. [facility] medication [facility] to [facility]. *Follow up with your primary care provider in 1-3 days, call for an appointment. Let them know you were seen in the ED and that we asked you to be seen in follow up. *Return to ED if you have any new, worsening, or concerning symptoms, such as [chest pain, breathing difficulty, unable to tolerate fluids, another syncopal episode, fever, or any acute concerns]. Prescriptions: New lidocaine 5 % adhesive patch,medicated 1 patch TOP Q24H PRN (Reason: pain) Qty: 30 RF: 0 hydrocodone-acetaminophen [[place]] 5-325 mg tablet 1 tab PO Q6H PRN (Reason: pain) Qty: 10 RF: 0 Referrals: Lisandro Mckee MD [Primary Care Provider] - Stand Alone Forms: Against Medical Advice <Javon Mohan DO - Last Filed: 08/23/20 07:10> Cosign ED Attending Coskekeature Attestation: I was immediately available in the department for consultation. This documentation has been reviewed and I agree with assessment and plan. Supervised by Javon Mohan DO
[2020-08-22 13:00] LABS: Troponin I < 0.012 ng/mL (0.01-0.034)
[2020-08-22 13:02] LABS: Ethanol (ETOH) < 10 mg/dL
[2020-08-22] MEDS: HYDROMORPHONE 0.5 MG INJ IV (13:06)
[2020-08-22] MEDS: MAGNESIUM SULFATE 2 GM, FOLIC ACID 1 MG, THIAMINE 100 MG, MULTIVITAMIN 10 ML in SODIUM ... IV (13:36)
[2020-08-22] MEDS: KETOROLAC 60 MG/2 ML VIAL 15 MG IV (13:55)
[2020-08-22] MEDS: LIDOCAINE PATCH 1 EACH ADH..PATCH TOP (13:55)
--- NOTE | 2020-08-22 14:02 | PC.NURSE ---
Patient requesting to go home, ELIZABETH Morgan at bedside discussing wishes with patient.
== END 2020-08-22 14:37 | disposition left against medical advice (07) ==
PROVIDERS: Emergency Provider Nurse Practitioner Family; PCP Student in an Organized Health Care Education/Training Program
DX: N28.9 Disorder of kidney and ureter, unspecified (principal); E87.1 Hypo-osmolality and hyponatremia; E87.8 Other disorders of electrolyte and fluid balance, not elsewhere classified; S20.221A Contusion of right back wall of thorax, initial encounter; W07.XXXA Fall from chair, initial encounter; R55 Syncope and collapse; R05 Cough; R07.9 Chest pain, unspecified; I10 Essential (primary) hypertension
CPT/HCPCS: 36415; 70450; 71045; 72072; 80053; 80320; 82550; 83690; 83735; 84484; 85025; 85610; 85730; 93005; 93010; 96361; 96374; 96375; 99284; J1170; J1885; J3475

== ENCOUNTER → 2022-07-23 08:27 | Outpatient (CLI) | payer MEDICARE, SELFPAY ==
[2021-04-05 15:41] VITALS: BMI 22.7
[2022-07-23 10:18] LABS: TSH w/ Reflex to FT4 2.34 uIU/mL (0.47-4.68)
== END ==
PROVIDERS: PCP Family Medicine; Referring Provider Family Medicine; Visit Provider Family Medicine
DX: F32.9 Major depressive disorder, single episode, unspecified (principal); F10.20 Alcohol dependence, uncomplicated; F17.200 Nicotine dependence, unspecified, uncomplicated; F43.20 Adjustment disorder, unspecified
CPT/HCPCS: 36415; 84443

== ENCOUNTER → 2022-07-25 09:39 | Outpatient (CLI) | payer MEDICARE, SELFPAY ==
[2021-04-05 15:41] VITALS: BMI 22.7
--- NOTE | 2022-08-15 16:37 | P.HOLT.S_ITS ---
[employer] Report Referral & Results Date Patient Seen: 07/25/22 Requesting provider: Jose Roberto Perea Indication: Syncope Duration of monitoring (days): 14 Diary information: There were 0 patient events to review Data: Minimum heart rate identified was 59 beats per minute at 03:48 on 08/05/2022 Maximum sinus heart rate was 130 beats per minute at 09:26 on 07/28/2022 Maximum overall heart rate was 182 beats per minute at 07:35 on 08/06/2022 during a run of SVT Approximately 1.4% of identified beats were supraventricular ectopic in origin which would classify them as occasional Less than 1% of identified beats were ventricular ectopic in origin which classify them as rare There were 7 runs of SVT with the fastest being 11 beat run at a rate of 182 beats per minute the longest lasting 18 beats There were no pauses of 3 seconds or longer or episodes of atrial fibrillation identified on this study Impression: 14 day secured entrance monitor demonstrating very rare very brief runs of SVT as above. Also patient with occasional supraventricular ectopy Clinical correlation suggested, but no classic etiology for syncope identified on this study
== END ==
PROVIDERS: PCP Family Medicine; Referring Provider Family Medicine; Visit Provider Family Medicine
DX: R55 Syncope and collapse (principal); F10.20 Alcohol dependence, uncomplicated; E87.1 Hypo-osmolality and hyponatremia
CPT/HCPCS: 93246; 93248; 93798

== ENCOUNTER → 2022-08-21 08:49 | Outpatient (CLI) | payer MEDICARE, SELFPAY ==
[2021-04-05 15:41] VITALS: BMI 22.7
--- NOTE | 2022-08-21 08:51 | DI.CT.S_ITS ---
PROCEDURE: CT CHEST WO CON INDICATIONS: chronic cough and 30+pack year smoker TECHNIQUE: Noncontrast 5 mm thick sections acquired from the pulmonary apices to the posterior costophrenic angles. 1 mm lung window, 5 mm thick coronal and sagittal and 7 mm axial MIP reformats were then acquired. For radiation dose reduction, the following was used: automated exposure control, adjustment of mA and/or kV according to patient size. COMPARISON: None. FINDINGS: Image quality: Excellent. Lungs and pleura: There is upper lobe predominant pulmonary emphysematous changes with scattered pulmonary scarring most pronounced in the bilateral lung apices. There are diffusely scattered predominantly peripheral tree-in-bud and mildly ill-defined nodular opacities likely infectious/inflammatory in etiology. A few scattered pulmonary nodules noted bilaterally. Largest are seen in the superior aspect of the right lower lobe. 1 measures 1.0 x 0.9 cm (image 175/series 3) and another measures 5 mm (image 190/series 3). Another prominent nodule is seen in in the right upper lobe measuring 5 mm (image 162/series 3). No significant airway thickening or bronchiectasis. No pleural effusions or pneumothorax. Central and peripheral airways are patent and normal in caliber. Mediastinum: Heart size is normal. No pericardial effusion. No mediastinal adenopathy by size criteria. Thoracic aorta and central pulmonary arteries are normal in size. Esophagus is normal in caliber. No hiatal hernia. Coronary atherosclerotic vascular calcifications are noted. Extensive atherosclerotic calcifications of the thoracic aorta. Bones and chest wall: No suspicious bony lesions. No vertebral body compression fractures. No axillary or supraclavicular adenopathy by size criteria. Thyroid gland is unremarkable in appearance . Abdomen: Visualized upper abdominal solid organs and bowel loops appear unremarkable in the absence of contrast. IMPRESSION: 1. Diffusely scattered tree-in-bud and ill-defined/sub solid opacities noted in the bilateral hemithoraces likely infectious/inflammatory in etiology. Viral or atypical infection favored. 2. Multiple small bilateral pulmonary nodules with the largest measuring 1.0 cm in size in the right lower lobe. Follow-up chest CT in 3-6 months is recommended. 3. Upper lobe predominant pulmonary emphysematous changes with associated scarring. 4. Atherosclerosis. Dictated by: Crescencio Swain M.D. on 08/21/2022 at 10:19 Approved by: Crescencio Swain M.D. on 08/21/2022 at 10:33
[2022-08-21 09:41] LABS: Add Manual Diff / Slide Review NO; Basophils Absolute Auto 100 /uL (0-100); Basophils Percent Auto 1.3 % (0-2); Eosinophils Absolute Auto 900 /uL (0-450); Eosinophils Percent Auto 11.5 % (2-4); Hematocrit 37.2 % (41-53); Hemoglobin 12.9 g/dL (13.5-17.5); Lymphocytes Absolute Auto 2300 /uL (1100-4500); Lymphocytes Percent Auto 28.8 % (25-40); Mean Corpuscular HGB Conc 34.6 % (30-36); Mean Corpuscular Hemoglobin 32.3 PG (26-34); Mean Corpuscular Volume 93.2 fL (80-100); Monocytes Absolute Auto 1300 /uL (0-900); Monocytes Percent Auto 16.8 % (3-14); Neutrophils Absolute Auto 3300 /uL (1500-7000); Neutrophils Percent Auto 41.6 % (50-75); Platelet Count 356 X10^3/uL (150-400); Red Blood Cell Count 3.99 X10^6/uL (4.5-5.9); Red Cell Distribution Width 13.6 % (11.6-14.8)
[2022-08-21 09:55] LABS: Alanine Aminotransferase 28 IU/L (<50); Albumin 4.2 g/dL (3.5-5.0); Albumin Globulin Ratio 1.4 (1.0-2.8); Alkaline Phosphatase 107 U/L (38-126); Aspartate Aminotransferase 39 IU/L (17-59); BUN Creatinine Ratio 12.5 (6-22); Bilirubin Total 0.9 mg/dL (0.2-1.3); Blood Urea Nitrogen 8 mg/dL (9-20); Calcium 8.9 mg/dL (8.4-10.2); Carbon Dioxide 26 mmol/L (22-32); Chloride 97 mmol/L (98-107); Cholesterol 197 mg/dL (140-199); Estimated Glomerular Filt Rate > 60 mL/min (>60); Globulin 3.1 g/dL (1.7-4.1); Glucose 89 mg/dL (80-110); HDL Cholesterol 106 mg/dL (40-60); HEMOLYSIS < 15 (0-50); LDL Cholesterol Calculated 82 mg/dL (<100); Potassium 4.5 mmol/L (3.4-5.1); Sodium 133 mmol/L (137-145); Total Protein 7.3 g/dL (6.3-8.2); Triglycerides 44 mg/dL (35-150)
[2022-08-21 10:25] LABS: Prostate Specific Antigen Scrn 0.926 ng/mL (0.1-4.0)
== END ==
PROVIDERS: PCP Family Medicine; Referring Provider Family Medicine; Visit Provider Family Medicine
DX: I70.0 Atherosclerosis of aorta (principal); I25.10 Atherosclerotic heart disease of native coronary artery without angina pectoris; R91.8 Other nonspecific abnormal finding of lung field; R05.3 Chronic cough; E87.1 Hypo-osmolality and hyponatremia; E78.5 Hyperlipidemia, unspecified; Z12.5 Encounter for screening for malignant neoplasm of prostate; F32.9 Major depressive disorder, single episode, unspecified; F43.20 Adjustment disorder, unspecified; F17.200 Nicotine dependence, unspecified, uncomplicated
CPT/HCPCS: 36415; 71250; 80053; 80061; 85025; G0103

== ENCOUNTER → 2023-03-14 09:59 | Outpatient (CLI) | payer MEDICARE, SELFPAY ==
[2021-04-05 15:41] VITALS: BMI 22.7
--- NOTE | 2023-03-14 10:00 | DI.CT.S_ITS ---
PROCEDURE: CT CHEST WO CON INDICATIONS: right lung nodule TECHNIQUE: Noncontrast 5 mm thick sections acquired from the pulmonary apices to the posterior costophrenic angles. 1 mm lung window, 5 mm thick coronal and sagittal and 7 mm axial MIP reformats were then acquired. For radiation dose reduction, the following was used: automated exposure control, adjustment of mA and/or kV according to patient size. COMPARISON: Located Within [facility], CR, XR CHEST 2V, 05/22/2019, 16:32. Located Within [facility], CR, XR CHEST 2V, 06/18/2019, 10:31. Located Within [facility], CT, CT CHEST WO CON, 08/21/2022, 8:52. FINDINGS: Image quality: Excellent. Lungs and pleura: There is mild centrilobular emphysema with an apical predominance. Trace superimposed pulmonary radiopacities are present at the bilateral apices. Subtle tree-in-bud pulmonary radiopacities are redemonstrated predominantly within the mid and lower lungs and appear decreased in conspicuity when compared with the study dated 08/21/22. A 1.0 cm pulmonary nodule is redemonstrated within the superior segment of the right lower lobe (series 3/image 156). This is unchanged in size from the study dated August 21, 2022. Mediastinum: Heart size is normal. No pericardial effusion. No mediastinal adenopathy by size criteria. Thoracic aorta and central pulmonary arteries are normal in size. Scattered atheromatous calcifications are present within the aortic arch. Esophagus is normal in caliber. No hiatal hernia. Bones and chest wall: No suspicious bony lesions. No vertebral body compression fractures. No axillary or supraclavicular adenopathy by size criteria. Thyroid gland is unremarkable. Abdomen: Visualized upper abdominal solid organs and bowel loops appear normal in the absence of contrast. IMPRESSION: 1. Stable 1.0 cm right lower lobe pulmonary nodule when compared with the CT dated August 21, 2022. 6-12 month follow-up recommended. 2. Slight decrease in the diffuse tree-in-bud pulmonary radiopacities when compared with the prior CT suggesting slow resolution of what likely represents an inflammatory or infectious process. 2. Fleischner Society criteria for SOLID lung nodule followup. Nodule size (mm)Low-risk patientHigh-risk patient<6 (single or multiple)No routine followup.Optional CT at 12 months. 6-8 (single or multiple)CT at 6-12 months, then optional CT at 18-24 mo.CT at 6-12 months, then CT at 18-24 months. >8 (single)CT at 3 months, PET-CT, or biopsy. Same as for low-risk pts. >8 (multiple)CT at 3-6 months, then optional CT at 18-24 mo.CT at 3-6 months, then CT at 18-24 months. Fleischner Society criteria for SUB-SOLID lung nodule followup. Solitary pure ground-glass nodules<6 mm (ground glass or part solid)No followup needed. 6 mm or larger (ground glass)CT at 6-12 months to confirm persistence, then CT every 2 years until 5 years.6 mm or larger (part solid)CT at 3-6 months to confirm persistence, then annual CT until 5 years if unchanged and solid component remains <6 mm. Multiple sub-solid nodules<6 mmCT at 3-6 months, then CT consider at 2 & 4 years for high risk patients. [address] at 3-6 months. Subsequent management based on most suspicious lesions. Recommendations do not apply to lung cancer screening, patients with immunosuppression, or patients with known primary cancer. Dictated by: Minnie Pickett M.D. on 03/14/2023 at 10:54 Approved by: Minnie Pickett M.D. on 03/14/2023 at 11:39
== END ==
PROVIDERS: PCP Family Medicine; Referring Provider Family Medicine; Visit Provider Family Medicine
DX: R91.1 Solitary pulmonary nodule (principal)
CPT/HCPCS: 71250

== ENCOUNTER → 2023-04-22 11:46 | Outpatient (CLI) | payer MEDICARE, SELFPAY ==
[2021-04-05 15:41] VITALS: BMI 22.7
[2023-04-22 12:09] LABS: Add Manual Diff / Slide Review NO; Basophils Absolute Auto 100 /uL (0-100); Basophils Percent Auto 1.8 % (0-2); Eosinophils Absolute Auto 500 /uL (0-450); Eosinophils Percent Auto 7.5 % (2-4); Hematocrit 37.8 % (41-53); Hemoglobin 12.9 g/dL (13.5-17.5); Lymphocytes Absolute Auto 2000 /uL (1100-4500); Lymphocytes Percent Auto 27.7 % (25-40); Mean Corpuscular Hemoglobin 32.1 PG (26-34); Mean Corpuscular Volume 94.2 fL (80-100); Monocytes Absolute Auto 1200 /uL (0-900); Monocytes Percent Auto 16.4 % (3-14); Neutrophils Absolute Auto 3400 /uL (1500-7000); Neutrophils Percent Auto 46.6 % (50-75); Platelet Count 341 X10^3/uL (150-400); Red Blood Cell Count 4.01 X10^6/uL (4.5-5.9); Red Cell Distribution Width 13.9 % (11.6-14.8); White Blood Cell Count 7.3 X10^3/uL (4.5-11.0)
[2023-04-22 12:34] LABS: HEMOLYSIS < 15 (0-50); Iron 129 ug/dL (49-181)
[2023-04-22 12:36] LABS: Alanine Aminotransferase 42 IU/L (<50); Albumin 4.4 g/dL (3.5-5.0); Albumin Globulin Ratio 1.3 (1.0-2.8); Alkaline Phosphatase 94 U/L (38-126); Aspartate Aminotransferase 74 IU/L (17-59); BUN Creatinine Ratio 12.3 (6-22); Blood Urea Nitrogen 7 mg/dL (9-20); Calcium 8.8 mg/dL (8.4-10.2); Carbon Dioxide 25 mmol/L (22-32); Chloride 95 mmol/L (98-107); Estimated Glomerular Filt Rate > 60 mL/min (>60); Globulin 3.4 g/dL (1.7-4.1); Glucose 92 mg/dL (80-110); HEMOLYSIS < 15 (0-50); Potassium 5.3 mmol/L (3.4-5.1); Sodium 130 mmol/L (137-145); Total Protein 7.8 g/dL (6.3-8.2)
[2023-04-22 12:44] LABS: Percent Iron Saturation 36 % (20-50); Total Iron Binding Capacity 363 ug/dL (261-462); Transferrin 275 mg/dL (206-381)
[2023-04-22 13:09] LABS: Ferritin 24 ng/mL (18-464)
== END ==
PROVIDERS: PCP Family Medicine; Referring Provider Family Medicine; Visit Provider Family Medicine
DX: D64.9 Anemia, unspecified (principal); E87.1 Hypo-osmolality and hyponatremia; F17.200 Nicotine dependence, unspecified, uncomplicated; R55 Syncope and collapse; R91.1 Solitary pulmonary nodule
CPT/HCPCS: 36415; 80053; 82728; 83540; 83550; 85025

== ENCOUNTER → 2023-05-01 13:40 | Outpatient (CLI) | payer MEDICARE, SELFPAY ==
[2021-04-05 15:41] VITALS: BMI 22.7
--- NOTE | 2023-05-01 13:42 | DI.ECHO.S_ITS ---
[place] [facility]---------+ [facility] +---------+ : : [address] : : : : [id number] : : : : Phone: [phone] Echocardiogram Report + + :Name: RADHA LIMA Study Date: 05/01/2023 Height: 70 in : :[facility] ReadingLocation: Weight: 160 lb : : Gender: Male BSA: 1.9 m2 : :: 1945 Age: 77 yrs BP: 136/82 mmHg: :Reason For Study: Syncope and Collapse : :Ordering Physician: VALE, : :WALE Performed By: Padmini Somers : :Referring: WALE COLLAZO : + + Interpretation Summary Technically difficult study. Normal left ventricle size with ejection fraction 55-60%. Diastolic parameters suggest a relaxation abnormality of the left ventricle, consistent with probable normal filling pressures. No significant valvular abnormality. Procedure: A two-dimensional transthoracic echocardiogram with color flow and Doppler was performed. The study quality was technically difficult. There is no prior echocardiogram noted for this patient. The patient was in normal sinus rhythm during the exam. Left Ventricle: The left ventricle is normal in size. The ejection fraction is estimated to be 55-60%. There are no obvious focal wall motion abnormalities noted but poor endocardial definition reduces the sensitivity for the detection of such. Diastolic parameters suggest a relaxation abnormality of the left ventricle, consistent with probable normal filling pressures. Right Ventricle: The right ventricle is normal in size and function. Atria: The left atrial size is normal. Right atrial size is normal. There is no Doppler evidence for an interatrial shunt. Mitral Valve: The mitral valve is normal. There is no mitral valve stenosis. There is no mitral regurgitation noted. Aortic Valve: The aortic valve is not well visualized. There is no aortic valve stenosis. No aortic regurgitation is present. Tricuspid Valve: The tricuspid valve is normal. There is no tricuspid stenosis. There is trace tricuspid regurgitation. Pulmonic Valve: The pulmonic valve leaflets are thin and pliable; valve motion is normal. There is no pulmonic valvular stenosis. There is no pulmonic valvular regurgitation. Great Vessels: The aortic root is not well visualized. The ascending aorta is normal in size. The pulmonary artery is normal size. The IVC is of normal diameter and collapses greater than 50% with a sniff. This suggests a low right atrial pressure of 3 mm Hg. Pericardium/ Pleura There is no pericardial effusion. MMode/2D Measurements & Calculations asc Aorta Diam: 2.9 cm LA A2 area: 13.8 cm2 LA A4 area: 10.6 cm2 LA length (vol): 4.6 cm LA vol: 26.9 ml LA vol index: 14.2 ml/m2 RA long axis: 4.7 cm RVD1 (basal): 3.8 cm RA area: 12.0 cm2 RA vol: 26.5 ml RA : 13.9 ml/m2 IVC diam: 1.6 cm LVLs ap4: 6.8 cm LVLd ap2: 7.8 cm LVLs ap2: 6.6 cm TAPSE_phl: 2.1 cm Doppler Measurements & Calculations Ao V2 max: 171.0 cm/sec LVOT Max Mahamed: 94.6 cm/sec Ao V2 mean: 124.0 cm/sec LV V1 max P.6 mmHg Ao max P.0 mmHg LV V1 VTI: 20.6 cm Ao mean P.0 mmHg sev ratio: 0.49 Ao V2 VTI: 42.0 cm MV E max mahamed: 74.6 cm/sec AV VR_phl: 0.55 MV A max mahamed: 93.4 cm/sec MV E/A: 0.80 Med Peak E' Mahamed: 6.4 cm/sec E/E' med: 11.7 Lat Peak E' Mahamed: 7.2 cm/sec E/E' lat: 10.4 E/e' average: 11.1 MV dec time: 0.24 sec MV P1/2t-pr_phl: 70.0 msec Electronically signed by: Pema Lockhart on Reading Physician:05/01/2023 05:00 PM
== END ==
PROVIDERS: PCP Family Medicine; Referring Provider Family Medicine; Visit Provider Family Medicine
DX: R55 Syncope and collapse (principal)
CPT/HCPCS: 93306

== ENCOUNTER → 2024-02-25 15:21 | Outpatient (CLI) | payer MEDICARE, SELFPAY ==
[2021-04-05 15:41] VITALS: BMI 22.7
--- NOTE | 2024-02-25 15:23 | DI.RAD.S_ITS ---
PROCEDURE: XR WRIST LT MIN 3V INDICATIONS: Fell 5 weeks ago; swelling pain medial R wrist TECHNIQUE: 4 views of the wrist were acquired. COMPARISON: None. FINDINGS: Bones: Healing, intra-articular fracture of the radial styloid. Radioulnar joint space narrowing with subchondral cystic change, indicating degenerative changes. Soft tissues: No suspicious soft tissue calcifications. IMPRESSION: Healing, intra-articular fracture of the radial styloid. Dictated by: Braxton Hernández M.D. on 02/25/2024 at 16:40 Approved by: Braxton Hernández M.D. on 02/25/2024 at 16:41
== END ==
PROVIDERS: PCP Family Medicine; Referring Provider Physician Assistant; Visit Provider Physician Assistant
DX: S52.512D Displaced fracture of left radial styloid process, subsequent encounter for closed fracture with routine healing (principal); M25.532 Pain in left wrist; W19.XXXD Unspecified fall, subsequent encounter
CPT/HCPCS: 73110

== ENCOUNTER 2024-11-28 16:48 | Emergency (ER) | payer MEDICARE, SELFPAY ==
[2021-04-05 15:41] VITALS: BMI 22.7
[2024-11-28] VITALS (9 sets, daily range): BP systolic 123–142; BP diastolic 60–69; PULSE 77–84; RESP 14–23; TEMP 36.4; O2SAT 95–100; BMI 23.5
--- NOTE | 2024-11-28 17:01 | DI.CT.S_ITS ---
PROCEDURE: CT HEAD/BRAIN WO CON INDICATIONS: glf TECHNIQUE: Noncontrast 4.5 mm thick angled axial sections acquired from the foramen magnum to the vertex, with coronal and sagittal reformats. For radiation dose reduction, the following was used: automated exposure control, adjustment of mA and/or kV according to patient size. COMPARISON: [facility], CT, CT HEAD/BRAIN WO CON, 08/22/2020, 12:52. FINDINGS: Image quality: Diagnostic. CSF spaces: Basal cisterns are patent. No extra-axial fluid collections. Ventricles are normal in size and shape. Brain: No midline shift. No intracranial masses or hemorrhage. Mathur-white matter interface is normal. Skull and face: Calvarium and visualized facial bones are intact, without suspicious lesions. Sinuses: Visualized sinuses and mastoids are clear. IMPRESSION: Atrophy and confluent white matter chronic ischemic change without acute infarct mass effect. Approved by: Refugio Reese M.D. on 11/28/2024 at 17:09
--- NOTE | 2024-11-28 17:02 | DI.CT.S_ITS ---
PROCEDURE: CT CERVICAL SPINE WO CON INDICATIONS: glf TECHNIQUE: Noncontrast 3 mm thick sections acquired from the skull base to the T4 level. Sagittal and coronal reformats were then constructed. For radiation dose reduction, the following was used: automated exposure control, adjustment of mA and/or kV according to patient size. COMPARISON: None. FINDINGS: Image quality: Excellent. Bones: No fractures or dislocations. Visualized superior ribs are intact. Diffuse disc space narrowing and hypertrophic arthropathy. Soft tissues: Prevertebral soft tissues are normal in thickness. No paravertebral hematomas. No apical pneumothoraces. IMPRESSION: Degenerative disc disease and arthropathy without fracture or traumatic malalignment Approved by: Refugio Reese M.D. on 11/28/2024 at 17:16
--- NOTE | 2024-11-28 17:08 | EKG_ITS ---
[place] [id number] [place] [id number] Test Date: 2024-11-28 Pat Name: Edgardo Peraza Department: [facility] Room: Gender: Male Unit Secretary: POLINA : 1945 Requested By: Order Number: [id number] Reading MD: Davey Dave Measurements Intervals [place] Rate: 79 P: 65 GA: 174 QRS: 73 QRSD: 66 T: 78 QT: 380 QTc: 435 Interpretive Statements Normal sinus rhythm Electronically Signed On 12-01-2024 23:43:39 PST by Davey Dave
[2024-11-28 17:11] LABS: Add Manual Diff / Slide Review NO; Basophils Absolute Auto 100 /uL (0-100); Basophils Percent Auto 1.3 % (0-2); Eosinophils Absolute Auto 700 /uL (0-450); Eosinophils Percent Auto 6.1 % (2-4); Hematocrit 35.8 % (41-53); Hemoglobin 11.9 g/dL (13.5-17.5); Lymphocytes Absolute Auto 4500 /uL (1100-4500); Lymphocytes Percent Auto 38.4 % (25-40); Mean Corpuscular HGB Conc 33.2 % (30-36); Mean Corpuscular Hemoglobin 31.4 PG (26-34); Mean Corpuscular Volume 94.8 fL (80-100); Monocytes Absolute Auto 2100 /uL (0-900); Monocytes Percent Auto 17.7 % (3-14); Neutrophils Absolute Auto 4300 /uL (1500-7000); Neutrophils Percent Auto 36.5 % (50-75); Platelet Count 362 X10^3/uL (150-400); Red Blood Cell Count 3.78 X10^6/uL (4.5-5.9); Red Cell Distribution Width 13.1 % (11.6-14.8); White Blood Cell Count 11.8 X10^3/uL (4.5-11.0)
[2024-11-28 17:13] LABS: Prothrombin Time 11.4 SECONDS (9.4-12.5)
[2024-11-28 17:15] LABS: PTT Partial Thromboplastin Tim 33 SECONDS (25.1-36.5)
[2024-11-28 17:16] LABS: Alanine Aminotransferase 22 IU/L (<50); Albumin 3.8 g/dL (3.5-5.0); Albumin Globulin Ratio 1.3 (1.0-2.8); Aspartate Aminotransferase 48 IU/L (17-59); BUN Creatinine Ratio 7.2 (6-22); Blood Urea Nitrogen 5 mg/dL (9-20); Calcium 8.2 mg/dL (8.4-10.2); Carbon Dioxide 24 mmol/L (22-32); Chloride 92 mmol/L (98-107); Creatine Kinase 108 U/L (55-170); Estimated Glomerular Filt Rate > 60 mL/min (>60); Glucose 95 mg/dL (80-110); HEMOLYSIS < 15 (0-50); Lipase 92 U/L (23-300); Potassium 4.1 mmol/L (3.4-5.1); Sodium 123 mmol/L (137-145); Total Protein 6.8 g/dL (6.3-8.2)
[2024-11-28 17:17] LABS: Alkaline Phosphatase 101 U/L (38-126); Bilirubin Total 0.6 mg/dL (0.2-1.3); Magnesium 1.8 mg/dL (1.6-2.3)
[2024-11-28 17:20] LABS: Ethanol (ETOH) 106 mg/dL
[2024-11-28 17:28] LABS: NT-proBNP (BNP-Adult 18+) 109 pg/mL (<450); Troponin I < 0.012 ng/mL (0.01-0.034)
--- NOTE | 2024-11-28 19:28 | ED.FALL ---
HPI - Fall General Chief Complaint: Fall Stated Complaint: GLF, syncope on floor 45 min Time Seen by Provider: 11/28/24 17:47 Source: patient and EMS Mode of arrival: EMS History of Present Illness HPI Narrative: 79 year old male presents by EMS from home for evaluation after ground level fall. Patient states that he was cooking and lost his balance. After losing his balance he does not remember what happened. Told nursing staff that he was drinking alcohol today and does seem to be slightly intoxicated. Denies use of blood thinners. Patient requesting to go home. Family member at bedside states that they were initially unable to get the patient off the floor and that is why they called 911. Related Data Previous Rx's Medication Instructions Recorded albuterol sulfate 90 mcg/actuation 2 puff inhalation Q6H PRN 01/16/23 aerosol inhaler shortness of breath or wheezing #8.5 grams bupropion HCl 150 mg 24 hr tablet, See Rx Instructions PO QAM #135 02/03/24 extended release (Wellbutrin XL) tabs Allergies Allergy/AdvReac Type Severity Reaction Status Date / Time nut - unspecified Allergy Severe Anaphylaxis Verified 02/25/24 15:01 egg Allergy Unknown Verified 02/25/24 15:01 Penicillins Allergy Unknown Verified 02/25/24 15:01 Patient History Medical History Right lower lobe pulmonary nodule Chronic cough Hyperlipidemia Hyponatremia Rib fracture Pneumothorax Nose deformity, acquired Social History household members: family Smoking Status: Current every day smoker alcohol intake: current Smoking Status: Current every day smoker alcohol intake frequency: 3 or more drinks per day Alcohol type: beer and hard liquor Exam Initial Vital Signs Initial Vital Signs: Vital Signs Pulse Rate 79 11/28/24 16:47 Pulse Oximetry 97 11/28/24 16:47 Const: Awake, alert, appears chronically unwell, debilitated Cardiac: regular rate, regular rhythm RESP: unlabored, clear bilaterally, no wheezing MSK: Atraumatic, no midline tenderness full range of motion, pulses equal Skin: Warm, Dry, intact, no lacerations Neuro: AO x3, CN II-XII grossly intact, moves all extremities Course Orders Ordered: ED Orders 11/28/24 16:45 Complete Blood Count AUTO DIFF Stat Comprehensive Metabolic Panel Stat ETOH [Ethanol (ETOH)] Stat Lipase Stat Magnesium Stat NT-proBNP (BNP-Adult 18+) Stat PTT Partial Thromboplastin Minh Stat Prothrombin Time INR Stat Troponin & CK Cardiac Panel Stat 11/28/24 17:01 CT head/brain wo con Stat EKG-12 Lead Stat 11/28/24 17:02 CT cervical spine wo con Stat Vital Signs Vital signs: Vital Signs - 8 hr 11/28/24 16:47 11/28/24 16:48 11/28/24 16:48 Temperature Pulse Rate 79 78 Respiratory Rate 18 Blood Pressure 123/60 Pulse Oximetry 97 99 Oxygen Delivery Method 11/28/24 16:52 11/28/24 17:00 11/28/24 17:00 Temperature 97.6 F Pulse Rate 79 77 Respiratory Rate 16 16 Blood Pressure 123/60 124/64 Pulse Oximetry 100 99 Oxygen Delivery Method Room Air 11/28/24 17:38 Temperature Pulse Rate 83 Respiratory Rate Blood Pressure Pulse Oximetry 95 Oxygen Delivery Method MDM - Fall Differential Diagnosis Differential diagnosis: Likely syncope, concussion with loss of consciousness and concussion without loss of consciousness Lab Data 11/28/24 16:45 11/28/24 16:45 Labs: Lab Results 11/28/24 Range/Units 16:45 WBC 11.8 H (4.5-11.0) X10^3/uL RBC 3.78 L (4.5-5.9) X10^6/uL Hgb 11.9 L (13.5-17.5) g/dL Hct 35.8 L (41-53) % MCV 94.8 (80-100) fL MCH 31.4 (26-34) PG MCHC 33.2 (30-36) % RDW 13.1 (11.6-14.8) % Plt Count 362 (150-400) X10^3/uL Neut % (Auto) 36.5 L (50-75) % Lymph % (Auto) 38.4 (25-40) % [place] % (Auto) 17.7 H (3-14) % Eos % (Auto) 6.1 H (2-4) % Baso % (Auto) 1.3 (0-2) % Neut # (Auto) 4300 (6067-2098) /uL Lymph # (Auto) 4500 (2893-8878) /uL [place] # (Auto) 2100 H (0-900) /uL Eos # (Auto) 700 H (0-450) /uL Baso # (Auto) 100 (0-100) /uL PT 11.4 (9.4-12.5) SECONDS INR 1.0 (0.9-1.3) APTT 33 (25.1-36.5) SECONDS Sodium 123 L (137-145) mmol/L Potassium 4.1 (3.4-5.1) mmol/L Chloride 92 L (98-107) mmol/L Carbon Dioxide 24 (22-32) mmol/L BUN 5 L (9-20) mg/dL Creatinine 0.69 (0.66-1.25) mg/dL Estimated GFR > 60 (>60) mL/min BUN/Creatinine Ratio 7.2 (6-22) Glucose 95 (80-110) mg/dL Calcium 8.2 L (8.4-10.2) mg/dL Magnesium 1.8 (1.6-2.3) mg/dL Total Bilirubin 0.6 (0.2-1.3) mg/dL AST 48 (17-59) IU/L ALT 22 (<50) IU/L Alkaline Phosphatase 101 (38-126) U/L Total Creatine Kinase 108 (55-170) U/L Troponin I < 0.012 (0.01-0.034) ng/mL NT-Pro-B Natriuret Pep 109 (<450) pg/mL Total Protein 6.8 (6.3-8.2) g/dL Albumin 3.8 (3.5-5.0) g/dL Globulin 3.0 (1.7-4.1) g/dL Albumin/Globulin Ratio 1.3 (1.0-2.8) Lipase 92 (23-300) U/L Ethyl Alcohol 106 H ( - 10) mg/dL Imaging Data CT scan - head: Radiologist's Impression: PROCEDURE: CT HEAD/BRAIN WO CON INDICATIONS: glf TECHNIQUE: Noncontrast 4.5 mm thick angled axial sections acquired from the foramen magnum to the vertex, with coronal and sagittal reformats. For radiation dose reduction, the following was used: automated exposure control, adjustment of mA and/or kV according to patient size. COMPARISON: [facility], CT, CT HEAD/BRAIN WO CON, 08/22/2020, 12:52. FINDINGS: Image quality: Diagnostic. CSF spaces: Basal cisterns are patent. No extra-axial fluid collections. Ventricles are normal in size and shape. Brain: No midline shift. No intracranial masses or hemorrhage. Mathur-white matter interface is normal. Skull and face: Calvarium and visualized facial bones are intact, without suspicious lesions. Sinuses: Visualized sinuses and mastoids are clear. IMPRESSION: Atrophy and confluent white matter chronic ischemic change without acute infarct mass effect. Approved by: Refugio Reese M.D. on 11/28/2024 at 17:09 CT - cervical spine: Radiologist's Impression: PROCEDURE: CT CERVICAL SPINE WO CON INDICATIONS: glf TECHNIQUE: Noncontrast 3 mm thick sections acquired from the skull base to the T4 level. Sagittal and coronal reformats were then constructed. For radiation dose reduction, the following was used: automated exposure control, adjustment of mA and/or kV according to patient size. COMPARISON: None. FINDINGS: Image quality: Excellent. Bones: No fractures or dislocations. Visualized superior ribs are intact. Diffuse disc space narrowing and hypertrophic arthropathy. Soft tissues: Prevertebral soft tissues are normal in thickness. No paravertebral hematomas. No apical pneumothoraces. IMPRESSION: Degenerative disc disease and arthropathy without fracture or traumatic malalignment Approved by: Refugio Reese M.D. on 11/28/2024 at 17:16 MDM Narrative Medical decision making narrative: Ground level fall with possible LOC. Also has alcohol on board. Upon my evaluation patient was already received CT imaging that is negative for acute traumatic findings. Laboratory work reviewed, sodium 123, unknown chronicity. No laboratory work in our system since 2022. Possibly secondary to alcohol use versus chronic. Other laboratory work without significant abnormalities. Patient states his pain is well-controlled and he was not want to stay in the ER anymore. He was requesting to be discharged home. He has family members at bedside who will drive him home. Discharge Plan Departure Patient Disposition: Home Clinical Impression: Closed head injury, Alcohol intoxication Instructions: DI for Closed Head Injury Activity Restrictions/Additional Instructions: Your laboratory work today was normal. Your alcohol level was slightly elevated. Alcohol puts you at increased risk of falling. Your head and neck CTs did not show any fractures or abnormal bleeding. Prescriptions: No Action albuterol sulfate 90 mcg/actuation HFA aerosol inhaler 2 puff inhalation Q6H PRN (Reason: shortness of breath or wheezing) Qty: 8.5 3RF bupropion HCl [Wellbutrin XL] 150 mg tablet extended release 24 hr See Rx Instructions PO QAM Qty: 135 1RF Rx Instructions: t1 tab po daily for 2 weeks, then increase to 2 tabs po thereafter. Referrals: Jose Roberto Perea MD [Primary Care Provider] - Stand Alone Forms: Patient Portal/API/Survey
== END 2024-11-28 19:44 | disposition home or self-care (01) ==
PROVIDERS: Emergency Medicine; Emergency Provider Emergency Medicine; PCP Family Medicine
DX: S09.90XA Unspecified injury of head, initial encounter (principal); W18.30XA Fall on same level, unspecified, initial encounter; E78.5 Hyperlipidemia, unspecified; F10.129 Alcohol abuse with intoxication, unspecified; Y90.5 Blood alcohol level of 100-119 mg/100 ml; R41.82 Altered mental status, unspecified
CPT/HCPCS: 36415; 70450; 72125; 80053; 80320; 82550; 83690; 83735; 83880; 84484; 85025; 85610; 85730; 93005; 99283; 99284

== ENCOUNTER 2025-09-30 14:41 | Inpatient (IN) | payer MEDICARE, SELFPAY ==
[2021-04-05 15:41] VITALS: BMI 22.7
[2025-09-30] VITALS (20 sets, daily range): BP systolic 129–198; BP diastolic 64–95; PULSE 85–100; RESP 18–33; TEMP 36.3–37.2; O2SAT 95–99; BMI 22.2
[2025-09-30 15:19] LABS: Add Manual Diff / Slide Review NO; Hematocrit 29.2 % (41-53); Hemoglobin 9.6 g/dL (13.5-17.5); Lymphocytes Absolute Auto 1600 /uL (1100-4500); Mean Corpuscular HGB Conc 33.0 % (30-36); Mean Corpuscular Hemoglobin 26.5 PG (26-34); Mean Corpuscular Volume 80.3 fL (80-100); Platelet Count 564 X10^3/uL (150-400)
[2025-09-30 15:33] LABS: Alanine Aminotransferase 18 IU/L (<50); Albumin 3.7 g/dL (3.5-5.0); Albumin Globulin Ratio 1.1 (1.0-2.8); Alkaline Phosphatase 146 U/L (38-126); Blood Urea Nitrogen 6 mg/dL (9-20); Calcium 8.2 mg/dL (8.4-10.2); Carbon Dioxide 22 mmol/L (22-32); Chloride 89 mmol/L (98-107); Estimated Glomerular Filt Rate > 60 mL/min (>60); Ethanol (ETOH) < 10 mg/dL (<10); Globulin 3.3 g/dL (1.7-4.1); Glucose 86 mg/dL (70-99); HEMOLYSIS < 15 (0-50); Magnesium 1.5 mg/dL (1.6-2.3); Potassium 4.0 mmol/L (3.4-5.1); Total Protein 7.0 g/dL (6.3-8.2)
--- NOTE | 2025-09-30 15:37 | ED.SYNCOPE ---
HPI - Syncope General Chief Complaint: Syncope Stated Complaint: fell down 3 steps yest; Lt arm/elbow pain Time Seen by Provider: 09/30/25 15:06 Source: patient Mode of arrival: Wheelchair History of Present Illness HPI narrative: 79-year-old male patient with a history of alcohol use disorder and tobacco smoking who rarely sees the doctor but admits to having occasional syncopal episodes over the last 2 or 3 years, 5-6 in total. He had another episode last evening and fell down 3 stairs injuring his left upper extremity, particularly the left elbow. He is not sure if he hit his head or not. He has no head pain. He awoke quite quickly and called for help from his son. His son had to call the patient's niece who came to help get him up and into a chair. He complains mainly of left elbow pain. In addition to alcohol he uses marijuana every day. He denies other drugs. He is on no medications or inhalers. He drinks about 12 beers per day Related Data Previous Rx's ?Medication ?Instructions ?Recorded albuterol sulfate 90 mcg/actuation 2 puff inhalation Q6H PRN 01/16/23 aerosol inhaler shortness of breath or wheezing #8.5 grams bupropion HCl 150 mg 24 hr tablet, See Rx Instructions PO QAM #135 02/03/24 extended release (Wellbutrin XL) tabs Allergies Allergy/AdvReac Type Severity Reaction Status Date / Time nut - unspecified Allergy Severe Anaphylaxis Verified 09/30/25 15:05 egg Allergy Unknown Verified 09/30/25 15:05 Penicillins Allergy Unknown Verified 09/30/25 15:05 Review of Systems Review of Systems ROS Unobtainable: All systems reviewed & are unremarkable except as noted in HPI and below Cardiovascular Cardiovascular: Reports as per HPI Musculoskeletal Musculoskeletal: Reports as per HPI Patient History Medical History Right lower lobe pulmonary nodule Chronic cough Hyperlipidemia Hyponatremia Rib fracture Pneumothorax Nose deformity, acquired Social History household members: family alcohol intake: current alcohol intake frequency: 3 or more drinks per day Alcohol type: beer and hard liquor Exam Narrative Exam Narrative: General: Alert and conversant. No distress. Appears well nourished and well hydrated Craniofacial: No evidence of trauma. Nontender and no swelling. Eyes: PERRLA EOMI conjunctiva clear HEENT: Oropharynx clear with no swelling, exudate or asymmetry of the pharynx. Nares clear. No sinus tenderness Neck: No tenderness or adenopathy. No meningismus. No JVD Lungs: Clear to auscultation with mild to moderately prolonged expiratory phase. No wheezing, rales or rhonchi. No respiratory distress Cardiac: Regular rate and rhythm with no appreciable murmur or gallop Abdomen: Soft, nontender with no distention or masses. Normal bowel sounds. No rebound or guarding Musculoskeletal: Slight pain with passive range of motion of the left shoulder but no pain to palpation of the bones. No deformity. Left elbow has swelling and bony tenderness. Otherwise Exam of the extremities, axial spine and ribcage reveals no deformity, bony tenderness or swelling. Range of motion intact Neuro: Alert and oriented. Cranial nerves, motor, sensory and cerebellar all grossly intact. No focal deficit Skin: Warm and normal color. No rashes Psychological: Normal affect and interaction. No evidence of delusion or psychosis. Normal mood. Initial Vital Signs Initial Vital Signs: Vital Signs Temperature 98.9 F 09/30/25 14:58 Pulse Rate 100 H 09/30/25 14:58 Respiratory Rate 18 09/30/25 14:58 Blood Pressure 129/64 09/30/25 14:58 Pulse Oximetry 98 09/30/25 14:58 Oxygen Delivery Method Room Air 09/30/25 14:58 Course Orders Ordered: ED Orders 09/30/25 15:05 CBC Auto Diff [Complete Blood Count AUTO DIFF] Stat CMP [Comprehensive Metabolic Panel] Stat Ethanol (ETOH) Stat Magnesium Stat Trop I [Troponin I] Stat 09/30/25 15:07 EKG-12 Lead Stat 09/30/25 15:41 CT head/brain wo con Stat XR elbow LT min 3V Stat 09/30/25 16:50 Urinalysis and Microscopic Stat 09/30/25 19:34 Consult to Occupational Therapy Evaluate & Treat Consult to Physical Therapy Evaluate & Treat 09/30/25 19:45 Basic Metabolic Panel DAILY Complete Blood Count AUTO DIFF DAILY Acetaminophen (Acetaminophen 325 Mg Tablet) 650 mg PO Q6H PRN PRN Reason: Fever/Mild Pain (1-3) Albuterol (Albuterol Hfa Mdi 60 Puff/8 Gm Inhaler (Covid Only)) 2 puff INH Q6H PRN PRN Reason: Shortness Of Breath Or Wheezing Heparin Sodium (Porcine) (Heparin 5,000 Unit/Ml Vial) 5,000 unit SUBCUT BID [facility] Last Admin: 09/30/25 22:21 Dose: Not Given Sodium Chloride (Normal Saline 0.9%) 1,000 mls @ 150 mls/hr IV CONT [facility] Last Admin: 09/30/25 16:10 Dose: 150 mls/hr Documented By: MELANI Sodium Chloride (Normal Saline 0.9%) 1,000 mls @ 100 mls/hr IV CONT [facility] Last Admin: 09/30/25 22:21 Dose: 100 mls/hr Magnesium Sulfate (Magnesium Sulfate) 2 gm in 50 mls @ 25 mls/hr IV NOW ONE Stop: 09/30/25 23:51 Last Admin: 09/30/25 22:17 Dose: 25 mls/hr Lorazepam (Lorazepam 2 Mg/Ml Inj) 0 mg IV CIWAPRN PRN; Protocol PRN Reason: Alcohol Withdrawal Lorazepam (Lorazepam 1 Mg Tablet) 0 mg PO CIWAPRN PRN; Protocol PRN Reason: Alcohol Withdrawal Multivitamins (Multivitamin 1 Tablet) 1 tab PO DAILY [facility] Naloxone HCl (Naloxone 0.4 Mg/Ml Vial) 0.2 mg IV Q2MIN PRN PRN Reason: Opiate Reversal Ondansetron HCl (Ondansetron 4 Mg/2 Ml Inj) 4 mg IV Q8HR PRN PRN Reason: Nausea And Vomiting Discontinued Medications Nicotine (Nicotine 21 Mg Patch) 21 mg TOP NOW ONE Stop: 09/30/25 19:49 Last Admin: 09/30/25 20:28 Dose: 21 mg Documented By: ORTEAG Vital Signs Vital signs: Vital Signs - 8 hr 09/30/25 14:58 09/30/25 15:13 09/30/25 15:30 Temperature 98.9 F Pulse Rate 100 H 91 H 87 Respiratory Rate 18 22 18 Blood Pressure 129/64 Pulse Oximetry 98 98 97 Oxygen Delivery Method Room Air 09/30/25 15:30 09/30/25 16:12 09/30/25 16:19 Temperature Pulse Rate 96 H 95 H Respiratory Rate 18 Blood Pressure 137/74 Pulse Oximetry 96 97 Oxygen Delivery Method 09/30/25 16:19 09/30/25 16:30 09/30/25 16:30 Temperature Pulse Rate 94 H Respiratory Rate 18 Blood Pressure 160/83 H 153/82 H Pulse Oximetry 95 Oxygen Delivery Method 09/30/25 17:00 09/30/25 17:00 09/30/25 17:30 Temperature Pulse Rate 92 H 97 H Respiratory Rate 19 24 Blood Pressure 161/84 H Pulse Oximetry 98 99 Oxygen Delivery Method 09/30/25 17:31 09/30/25 17:31 09/30/25 18:00 Temperature Pulse Rate 95 H 91 H Respiratory Rate 25 H 22 Blood Pressure 198/95 H Pulse Oximetry 99 96 Oxygen Delivery Method 09/30/25 18:01 09/30/25 18:01 09/30/25 18:30 Temperature Pulse Rate 92 H 96 H Respiratory Rate 21 24 Blood Pressure 164/90 H Pulse Oximetry 96 98 Oxygen Delivery Method 09/30/25 18:30 09/30/25 19:00 09/30/25 19:30 Temperature Pulse Rate 90 93 H Respiratory Rate 22 33 H Blood Pressure 189/79 H Pulse Oximetry 98 98 Oxygen Delivery Method MDM - Syncope Differential Diagnosis Differential diagnosis: Likely syncope due to orthostatic hypotension, vasovagal syncope, complete atrioventricular block and dehydration Lab Data Attestation: I reviewed the patient's lab results. Lab results narrative: CBC reveals anemia of hemoglobin 9.6 and platelets Elevated to 564. CMP reveals sodium of 118 with chloride of 89 and electrolytes otherwise unremarkable. Liver function tests normal or essentially normal. 09/30/25 15:05 09/30/25 15:05 Labs: Lab Results 09/30/25 09/30/25 Range/Units 15:05 16:50 WBC 7.8 (4.5-11.0) X10^3/uL RBC 3.63 L (4.5-5.9) X10^6/uL Hgb 9.6 L (13.5-17.5) g/dL Hct 29.2 L (41-53) % MCV 80.3 (80-100) fL MCH 26.5 (26-34) PG MCHC 33.0 (30-36) % RDW 14.9 H (11.6-14.8) % Plt Count 564 H (150-400) X10^3/uL Neut % (Auto) 53.0 (50-75) % Lymph % (Auto) 20.9 L (25-40) % [place] % (Auto) 17.3 H (3-14) % Eos % (Auto) 7.3 H (2-4) % Baso % (Auto) 1.5 (0-2) % Neut # (Auto) 4200 (3845-4683) /uL Lymph # (Auto) 1600 (6846-8332) /uL [place] # (Auto) 1400 H (0-900) /uL Eos # (Auto) 600 H (0-450) /uL Baso # (Auto) 100 (0-100) /uL Sodium 118 L* (137-145) mmol/L Potassium 4.0 (3.4-5.1) mmol/L Chloride 89 L (98-107) mmol/L Carbon Dioxide 22 (22-32) mmol/L BUN 6 L (9-20) mg/dL Creatinine 0.49 L (0.66-1.25) mg/dL Estimated GFR > 60 (>60) mL/min BUN/Creatinine Ratio 12.2 (6-22) Glucose 86 (70-99) mg/dL Calcium 8.2 L (8.4-10.2) mg/dL Magnesium 1.5 L (1.6-2.3) mg/dL Total Bilirubin 0.7 (0.2-1.3) mg/dL AST 50 (17-59) IU/L ALT 18 (<50) IU/L Alkaline Phosphatase 146 H (38-126) U/L Troponin I < 0.012 (0.01-0.034) ng/mL Total Protein 7.0 (6.3-8.2) g/dL Albumin 3.7 (3.5-5.0) g/dL Globulin 3.3 (1.7-4.1) g/dL Albumin/Globulin Ratio 1.1 (1.0-2.8) Urine Color Yellow Urine Appearance Clear Urine pH 6.0 (4.5-8.0) Ur Specific [place] 1.010 (1.000-1.035) Urine Protein Negative (Negative) Urine Glucose (UA) Negative (Negative) g/dL Urine Ketones 1+ H (NEGATIVE) Urine Occult Blood 1+ H (Negative) Urine Nitrate Negative (Negative) Urine Bilirubin Negative (NEGATIVE) Urine Urobilinogen 0.2 (0.2) E.U./dL Ur Leukocyte Esterase Negative (NEGATIVE) Urine RBC 5-10/hpf H (0-5/HPF) Urine WBC 1-5/hpf (0-5/HPF) Ur Squamous Epith Cells None seen (0-5/HPF) Ur Transition Epith Cell 0-1/hpf (0-5/HPF) Ur Renal Epithelial Cell 0-1/hpf (0-1/HPF) Urine Bacteria None seen (None) Ur Culture Indicated? Cult not indicated Vol Urine Centrifuged 10ml (spun) Ethyl Alcohol < 10 (<10) mg/dL Imaging Data CT scan - head: My Impression: No evidence of trauma or intracranial abnormality Radiologist's Impression: no acute intracranial pathology. Extremity x-ray #1: Attestation: I personally reviewed and interpreted this imaging study as follows: My Impression: Left elbow radiographs: Olecranon fracture with minimal displacement. Comminuted. ECG Data Attestation: I personally reviewed and interpreted this ECG as follows: ( normal sinus rhythm. Rate 96. Septal Q-waves. No acute ischemic changes.) MDM Narrative Medical decision making narrative: I discussed the patient's fracture with Doctor Dong, orthopedics who agrees with posterior padded splint and he will see the patient in the morning. Patient's tachycardia has improved with hydration. I am giving him normal saline at 150 per hour. Patient has profound hyponatremia in the setting of alcohol use on a daily basis. Probable syncopal episode with right olecranon fracture and probable dehydration. 19:00 I discussed the patient's care with Dr. Thomas, hospitalist who agrees to admit him for severe hyponatremia, risk of alcohol withdrawal and syncopal episodes. In addition he has a left olecranon fracture which will be managed by Orthopedics. Discharge Plan Departure Patient Disposition: Admitted As Inpatient Clinical Impression: Hyponatremia, Syncope, Alcohol use disorder, Normocytic anemia, Fracture of olecranon process of left ulna Admit Date/Time: 09/30/25 19:34 Admit Provider: Ash Thomas
[2025-09-30 15:40] LABS: Sodium 118 mmol/L (137-145)
--- NOTE | 2025-09-30 15:41 | DI.CT.S_ITS ---
PROCEDURE: CT HEAD/BRAIN WO CON INDICATIONS: Fall with possible head trauma TECHNIQUE: Noncontrast 4.5 mm thick angled axial sections acquired from the foramen magnum to the vertex, with coronal and sagittal reformats. For radiation dose reduction, the following was used: automated exposure control, adjustment of mA and/or kV according to patient size. COMPARISON: [facility], CT, CT HEAD/BRAIN WO CON, 11/28/2024, 17:26. FINDINGS: Image quality: Diagnostic. CSF spaces: Basal cisterns are patent. No extra-axial fluid collections. Prominent ventricles, unchanged likely due to ex vacuo dilation. Brain: No midline shift. No intracranial mass effect or hemorrhage. Mathur- white matter interface is normal. Diffuse cerebral volume loss. Patchy areas of white matter hypoattenuation often associated with small vessel ischemic disease. Intracranial atherosclerotic calcification. Skull and face: Calvarium and visualized facial bones are intact, without suspicious lesions. Sinuses: Mucous retention cysts in the paranasal sinuses. IMPRESSION: No acute intracranial pathology. Dictated by: Alejandro Hollins M.D. on 09/30/2025 at 16:09 Approved by: Alejandro Hollins M.D. on 09/30/2025 at 16:14
--- NOTE | 2025-09-30 15:41 | DI.RAD.S_ITS ---
PROCEDURE: XR ELBOW LT MIN 3V INDICATIONS: Trauma TECHNIQUE: 3 views of the elbow were acquired. COMPARISON: None. FINDINGS: Bones: Comminuted mildly displaced olecranon fracture. No suspicious bony lesions. Soft tissues: Positive elbow joint effusion. No suspicious soft tissue calcifications. IMPRESSION: Comminuted, mildly displaced olecranon fracture. Dictated by: Sly Zelaya M.D. on 09/30/2025 at 16:28 Approved by: Sly Zelaya M.D. on 09/30/2025 at 16:28
[2025-09-30 15:44] LABS: Troponin I < 0.012 ng/mL (0.01-0.034)
--- NOTE | 2025-09-30 15:51 | EKG_ITS ---
[place] [id number] [place] [id number] Test Date: 2025-09-30 Pat Name: Edgardo Peraza Department: [facility] Room: Gender: Male Vessel Engineer: POLINA : 1945 Requested By: Order Number: [id number] Reading MD: Nirav Collier Measurements Intervals [place] Rate: 96 P: 59 [place]: 172 QRS: 67 QRSD: 70 T: 69 QT: 354 QTc: 447 Interpretive Statements Normal sinus rhythm Septal infarct , age undetermined Electronically Signed On 10-01-2025 14:39:54 PST by Nirav Collier
[2025-09-30] MEDS: SODIUM CHLORIDE 0.9% 1,000 ML 150 ML IV (16:10)
[2025-09-30 17:13] LABS: Appearance Urine UA CLEAR; Bilirubin Urine UA NEGATIVE (NEGATIVE); Color Urine UA YELLOW; Glucose Urine UA NEGATIVE (Negative); Ketones Urine UA 1+ (NEGATIVE); Leukocyte Esterase Urine UA NEGATIVE (NEGATIVE); Nitrite Urine UA NEGATIVE (Negative); Occult Blood Urine UA 1+ (Negative); Protein Urine UA NEGATIVE (Negative); Specific Gravity Urine UA 1.010 (1.000-1.035); Urobilinogen Urine UA 0.2 E.U./dL (0.2); pH Urine UA 6.0 (4.5-8.0)
[2025-09-30 17:27] LABS: Culture Indicated Urine Cult Not Indicated
--- NOTE | 2025-09-30 18:24 | PC.NURSE ---
Pt reports being a daily drinker, 12 beers per day, everyday. Hx of ETOH abuse, hx of rehab. Not interested in rehab. CIWA 1 at this time. Charge aware.
[2025-09-30] MEDS: NICOTINE 21 MG PATCH TOP (20:28)
--- NOTE | 2025-09-30 20:39 | PC.NURSE ---
sling applied to left arm , elbow noted swollen, pt states it has been swollen for a few days after he fell
[2025-09-30] MEDS: MAGNESIUM SULFATE 2 GM/50 ML PIGGYBACK IV (22:17)
[2025-09-30] MEDS: SODIUM CHLORIDE 0.9% 1,000 ML 100 ML IV (22:21)
[2025-09-30 23:41] LABS: Add Manual Diff / Slide Review NO; Hematocrit 28.2 % (41-53); Hemoglobin 9.6 g/dL (13.5-17.5); Lymphocytes Absolute Auto 1900 /uL (1100-4500); Mean Corpuscular HGB Conc 34.0 % (30-36); Mean Corpuscular Hemoglobin 27.1 PG (26-34); Mean Corpuscular Volume 79.7 fL (80-100); Platelet Count 513 X10^3/uL (150-400)
[2025-09-30 23:48] LABS: INR 1.1 (0.9-1.3); Prothrombin Time 12.7 SECONDS (9.4-12.5); Sodium 121 mmol/L (137-145)
[2025-09-30 23:52] LABS: Blood Urea Nitrogen 5 mg/dL (9-20); Calcium 8.0 mg/dL (8.4-10.2); Carbon Dioxide 24 mmol/L (22-32); Chloride 92 mmol/L (98-107); Estimated Glomerular Filt Rate > 60 mL/min (>60); Glucose 109 mg/dL (70-99); HEMOLYSIS < 15 (0-50); Potassium 3.7 mmol/L (3.4-5.1); Sodium 122 mmol/L (137-145)
[2025-10-01] VITALS (7 sets, daily range): BP systolic 120–157; BP diastolic 65–89; PULSE 70–106; RESP 16–18; TEMP 36.2–37; O2SAT 93–98
[2025-10-01 03:37] LABS: Sodium 123 mmol/L (137-145)
--- NOTE | 2025-10-01 06:37 | P.HP_ITS ---
History of Present Illness History of Present Illness Date Patient Seen: 09/30/25 Time Patient Seen: 22:35 Chief complaint: fell down 3 steps yest; Lt arm/elbow pain Narrative: 79-year-old male past medical history of alcohol abuse, tobacco abuse, hyperlipidemia and asthma presents with multiple fall and left elbow pain. Per report the patient fell last evening and 3 stairs landing on his left side. The patient started to have his left significant elbow pain. The patient is unsure if he hit his head or not but did have a brief loss of consciousness. The patient quickly awoke and the patient's son called for help. In addition to alcohol the patient does also use marijuana daily. Currently the patient denies any fever, chills, nausea, vomiting, diarrhea, chest pain or shortness of breath. In our emergency room, the patient was hemodynamically stable and was saturating well on room air. Labs were shows a sodium 118 hemoglobin 9.6 but no other signs of sepsis. UA was negative for any UTI. Alcohol level was less than 10. Head CT shows no acute finding. X-ray of the left elbow shows a mildly displaced olecranon fracture. Orthopedic surgery was consulted and a sling was placed. Her ER physician requested admission for correction of sodium and pain control. No NS was given. Repeat sodium is pending. [facility] Medical History Right lower lobe pulmonary nodule Chronic cough Hyperlipidemia Hyponatremia Rib fracture Pneumothorax Nose deformity, acquired Social History household members: family alcohol intake: current Meds Home Medications and Allergies Home Medications ?Medication ?Instructions ?Recorded ?Confirmed ?Type albuterol sulfate 90 mcg/actuation 2 puff inhalation Q 6H PRN 01/16/23 02/25/24 Rx aerosol inhaler shortness of breath or wheez ing #8.5 grams bupropion HCl 150 mg 24 hr tablet, See Rx Instructions PO QAM #135 02/03/24 02/25/24 Rx extended release (Wellbutrin XL) tabs Allergies Allergy/AdvReac Type Severity Reaction Status Date / Time nut - unspecified Allergy Severe Anaphylaxis Verified 09/30/25 15:05 egg Allergy Unknown Verified 09/30/25 15:05 Penicillins Allergy Unknown Verified 09/30/25 15:05 Review of Systems Review of Systems ROS: Yes All systems reviewed with the patient and are negative except as otherwise documented Exam Vital Signs (past 8 hours): - 10/01/25 01:21 10/01/25 02:55 Temperature 98.6 F Pulse Rate 70 70 Respiratory Rate 16 16 Blood Pressure 157/89 H 130/65 Pulse Oximetry 95 Oxygen Delivery Method Room Air Oxygen Flow Rate 0 Narrative Exam Narrative: Physical Exam: GENERAL: The patient is not in any acute distressed. Awake and alert. HEENT: Nonicteric sclerae, PERRLA, EOMI. Oropharynx clear. Moist mucous membranes. Conjunctivae appear well perfused. HEART: Regular rate and rhythm without murmurs. No lower extremities edema. LUNGS: Clear to auscultation bilaterally. No wheezing, crackles or rhonchi ABDOMEN: Soft, positive bowel sounds, nontender. SKIN: No rash, no excessive bruising, petechiae, or purpura. NEUROLOGIC: AxO x 3. Cranial nerves II-XII intact without motor/sensory deficit. Objective Labs 09/30/25 23:15 10/01/25 03:15 Labs: Laboratory Results - last 24 hr 09/30/25 09/30/25 09/30/25 15:05 16:50 23:15 WBC 7.8 6.9 RBC 3.63 L 3.55 L Hgb 9.6 L 9.6 L Hct 29.2 L 28.2 L MCV 80.3 79.7 L MCH 26.5 27.1 MCHC 33.0 34.0 RDW 14.9 H 14.4 Plt Count 564 H 513 H Neut % (Auto) 53.0 43.4 L Lymph % (Auto) 20.9 L 27.2 [place] % (Auto) 17.3 H 15.7 H Eos % (Auto) 7.3 H 12.0 H Baso % (Auto) 1.5 1.7 Neut # (Auto) 4200 3000 Lymph # (Auto) 1600 1900 [place] # (Auto) 1400 H 1100 H Eos # (Auto) 600 H 800 H Baso # (Auto) 100 100 PT 12.7 H INR 1.1 Sodium 118 L* 122 L Potassium 4.0 Chloride 89 L Carbon Dioxide 22 BUN 6 L Creatinine 0.49 L Estimated GFR > 60 BUN/Creatinine Ratio 12.2 Glucose 86 Calcium 8.2 L Magnesium 1.5 L Total Bilirubin 0.7 AST 50 ALT 18 Alkaline Phosphatase 146 H Troponin I < 0.012 Total Protein 7.0 Albumin 3.7 Globulin 3.3 Albumin/Globulin Ratio 1.1 Urine Color Yellow Urine Appearance Clear Urine pH 6.0 Ur Specific [place] 1.010 Urine Protein Negative Urine Glucose (UA) Negative Urine Ketones 1+ H Urine Occult Blood 1+ H Urine Nitrate Negative Urine Bilirubin Negative Urine Urobilinogen 0.2 Ur Leukocyte Esterase Negative Urine RBC 5-10/hpf H Urine WBC 1-5/hpf Ur Squamous Epith Cells None seen Ur Transition Epith Cell 0-1/hpf Ur Renal Epithelial Cell 0-1/hpf Urine Bacteria None seen Ur Culture Indicated? Cult not indicated Vol Urine Centrifuged 10ml (spun) Ethyl Alcohol < 10 09/30/25 10/01/25 23:15 03:15 WBC RBC Hgb Hct MCV MCH MCHC RDW Plt Count Neut % (Auto) Lymph % (Auto) [place] % (Auto) Eos % (Auto) Baso % (Auto) Neut # (Auto) Lymph # (Auto) [place] # (Auto) Eos # (Auto) Baso # (Auto) PT INR Sodium 121 L 123 L Potassium 3.7 Chloride 92 L Carbon Dioxide 24 BUN 5 L Creatinine 0.48 L Estimated GFR > 60 BUN/Creatinine Ratio 10.4 Glucose 109 H Calcium 8.0 L Magnesium Total Bilirubin AST ALT Alkaline Phosphatase Troponin I Total Protein Albumin Globulin Albumin/Globulin Ratio Urine Color Urine Appearance Urine pH Ur Specific [place] Urine Protein Urine Glucose (UA) Urine Ketones Urine Occult Blood Urine Nitrate Urine Bilirubin Urine Urobilinogen Ur Leukocyte Esterase Urine RBC Urine WBC Ur Squamous Epith Cells Ur Transition Epith Cell Ur Renal Epithelial Cell Urine Bacteria Ur Culture Indicated? Vol Urine Centrifuged Ethyl Alcohol Assessment & Plan Assessment & Plan narrative: Hyponatremia The patient to medical telemetry as inpatient. Sodium 118. Could be from dehydration. Continue IV fluid with NS and monitor sodium closely. Patient is currently mentating well without seizure. Alcohol abuse and possible alcohol withdrawal. Continue CIWA protocol with as needed IV Ativan. IV fluid. Fall. CT head negative. However patient does have left olecranon fracture. Orthopedic consulted. PT OT and pain control. Anemia. Continue PPI. Monitor for any sign of bleeding. Hemoglobin 9.6. History of asthma. No sign of exacerbation. Resume home inhalers. DVT prophylaxis heparin subcu. CODE STATUS full code. Disposition likely home in 1 to 2 days. - As the provider of this telehealth evaluation, requested by the patient's evaluating physician, I attest that I introduced myself to the patient, provided my credentials and determined that telemedicine via a real-time, 2 way interactive audio and video platform is an appropriate and effective means of providing this service. - I reviewed the patient's chart and had a discussion with the member of the patient's treatment team. - The patient and I mutually agreed with continuation of this evaluation via telemedicine. The patient consented for the telemedicine evaluation. - This virtual encounter was taken place from [place] by Dr. Ash Thomas. The patient was evaluated at [facility]. The encounter was approximately 35 minutes. The nurse was present during the entire time of the encounter and was able assists with the stethoscope to listen to the patients. Time-Based Coding :: [TOTAL MINUTES] spent with patient and on the chart (including review of chart, obtaining history, exam, reviewing outside data, placing orders, documenting exam and treatment plan, and counseling patient) on [DATE].
--- NOTE | 2025-10-01 07:56 | PM.PN.1 ---
Subjective Subjective Interval history: Course: 79-year-old male past medical history of alcohol abuse, tobacco abuse, hyperlipidemia and asthma presents with multiple fall and left elbow pain. Per report the patient fell last evening and 3 stairs landing on his left side. The patient started to have his left significant elbow pain. The patient is unsure if he hit his head or not but did have a brief loss of consciousness. The patient quickly awoke and the patient's son called for help. In addition to alcohol the patient does also use marijuana daily. Currently the patient denies any fever, chills, nausea, vomiting, diarrhea, chest pain or shortness of breath. In our emergency room, the patient was hemodynamically stable and was saturating well on room air. Labs were shows a sodium 118 hemoglobin 9.6 but no other signs of sepsis. UA was negative for any UTI. Alcohol level was less than 10. Head CT shows no acute finding. X-ray of the left elbow shows a mildly displaced olecranon fracture. Orthopedic surgery was consulted and a sling was placed. Her ER physician requested admission for correction of sodium and pain control. No NS was given. Repeat sodium is pending. S: Relatively somnolent, no distress. Left arm is slings. O: NAD, alert and oriented. Fluent speech. Lungs are clear, normal rate and effort. Heart is regular, no murmur gallop or rub. Abdomen is soft, non distended. Extremities are free of edema. Left arm is sling, good peripheral pulse. IMAGING: [facility] Elbow X-ray: Olecranon fracture. A/P: 1. Hypovolemic hyponatremia with sodium 118. 2. Alcohol abuse and possible alcohol withdrawal. 3. Fall. 4. Anemia. Continue PPI. 5. Asthma. PLAN: -continue saline at 75 mL an hour, q.6 hours sodium. -Librium t.i.d. -PT and OT assessment. -Na Q6HR DVT prophylaxis heparin subcu. CODE STATUS full code. Disposition likely home in 1 to 2 days. Exam Vital Signs (past 8 hours): - 10/01/25 01:21 10/01/25 02:55 Temperature 98.6 F Pulse Rate 70 70 Respiratory Rate 16 16 Blood Pressure 157/89 H 130/65 Pulse Oximetry 95 Oxygen Delivery Method Room Air Oxygen Flow Rate 0 Objective Labs 09/30/25 23:15 10/01/25 03:15 Labs: Laboratory Results - last 24 hr 09/30/25 09/30/25 09/30/25 15:05 16:50 23:15 WBC 7.8 6.9 RBC 3.63 L 3.55 L Hgb 9.6 L 9.6 L Hct 29.2 L 28.2 L MCV 80.3 79.7 L MCH 26.5 27.1 MCHC 33.0 34.0 RDW 14.9 H 14.4 Plt Count 564 H 513 H Neut % (Auto) 53.0 43.4 L Lymph % (Auto) 20.9 L 27.2 [place] % (Auto) 17.3 H 15.7 H Eos % (Auto) 7.3 H 12.0 H Baso % (Auto) 1.5 1.7 Neut # (Auto) 4200 3000 Lymph # (Auto) 1600 1900 [place] # (Auto) 1400 H 1100 H Eos # (Auto) 600 H 800 H Baso # (Auto) 100 100 PT 12.7 H INR 1.1 Sodium 118 L* 122 L Potassium 4.0 Chloride 89 L Carbon Dioxide 22 BUN 6 L Creatinine 0.49 L Estimated GFR > 60 BUN/Creatinine Ratio 12.2 Glucose 86 Calcium 8.2 L Magnesium 1.5 L Total Bilirubin 0.7 AST 50 ALT 18 Alkaline Phosphatase 146 H Troponin I < 0.012 Total Protein 7.0 Albumin 3.7 Globulin 3.3 Albumin/Globulin Ratio 1.1 Urine Color Yellow Urine Appearance Clear Urine pH 6.0 Ur Specific [place] 1.010 Urine Protein Negative Urine Glucose (UA) Negative Urine Ketones 1+ H Urine Occult Blood 1+ H Urine Nitrate Negative Urine Bilirubin Negative Urine Urobilinogen 0.2 Ur Leukocyte Esterase Negative Urine RBC 5-10/hpf H Urine WBC 1-5/hpf Ur Squamous Epith Cells None seen Ur Transition Epith Cell 0-1/hpf Ur Renal Epithelial Cell 0-1/hpf Urine Bacteria None seen Ur Culture Indicated? Cult not indicated Vol Urine Centrifuged 10ml (spun) Ethyl Alcohol < 10 09/30/25 10/01/25 23:15 03:15 WBC RBC Hgb Hct MCV MCH MCHC RDW Plt Count Neut % (Auto) Lymph % (Auto) [place] % (Auto) Eos % (Auto) Baso % (Auto) Neut # (Auto) Lymph # (Auto) [place] # (Auto) Eos # (Auto) Baso # (Auto) PT INR Sodium 121 L 123 L Potassium 3.7 Chloride 92 L Carbon Dioxide 24 BUN 5 L Creatinine 0.48 L Estimated GFR > 60 BUN/Creatinine Ratio 10.4 Glucose 109 H Calcium 8.0 L Magnesium Total Bilirubin AST ALT Alkaline Phosphatase Troponin I Total Protein Albumin Globulin Albumin/Globulin Ratio Urine Color Urine Appearance Urine pH Ur Specific [place] Urine Protein Urine Glucose (UA) Urine Ketones Urine Occult Blood Urine Nitrate Urine Bilirubin Urine Urobilinogen Ur Leukocyte Esterase Urine RBC Urine WBC Ur Squamous Epith Cells Ur Transition Epith Cell Ur Renal Epithelial Cell Urine Bacteria Ur Culture Indicated? Vol Urine Centrifuged Ethyl Alcohol PFSH Medical History Right lower lobe pulmonary nodule Chronic cough Hyperlipidemia Hyponatremia Rib fracture Pneumothorax Nose deformity, acquired Social History household members: family alcohol intake: current Assessment & Plan Time-Based Coding :: [TOTAL MINUTES] spent with patient and on the chart (including review of chart, obtaining history, exam, reviewing outside data, placing orders, documenting exam and treatment plan, and counseling patient) on [DATE].
[2025-10-01] MEDS: MULTIVITAMIN 1 TABLET 1 TAB PO (10:05)
[2025-10-01] MEDS: HEPARIN 5,000 UNIT/ML VIAL 5000 UNIT SUBCUT ×2 (10:05→20:57)
[2025-10-01 14:23] LABS: Blood Urea Nitrogen 4 mg/dL (9-20); Calcium 7.8 mg/dL (8.4-10.2); Carbon Dioxide 20 mmol/L (22-32); Chloride 98 mmol/L (98-107); Estimated Glomerular Filt Rate > 60 mL/min (>60); Glucose 101 mg/dL (70-99); HEMOLYSIS < 15 (0-50); Potassium 3.8 mmol/L (3.4-5.1); Sodium 124 mmol/L (137-145)
--- NOTE | 2025-10-01 15:11 | CM.DANOTE ---
Patient is a 79 yo male who was admitted INPT Status on 09/30/25 for GLF with Elbow fx. Pt has AARP MCR under [employer] for insurance and his PCP is Dr. JoseR oberto Perea at [facility]. EMR was reviewed. Per MD, pt with fall down his stairs and UDS+ for ETOH and THC. Pt's labs abnormal and sodium not yet stable and not ready for discharge yet today. Per Ortho Consult, no need for surgical intervention and pt placed in sling. PT/OT ordered and pending. SW met bedside with pt and his son DEBORAH and his brother from [place] and explained role. They confirm that pt lives at home in [place] with his son DEBORAH and has been mostly independent with ADLs. DEBORAH is home and not working and can provide assist as needed. Pt confirms that he typically drinks up to 12 beers daily and does not have interest in cessation at this time and declines need for resources. Pt denies any hx of significant alcohol withdrawal. No hx of HH or SNF and explained services and frequency and pt and family confirm that their preference would be discharge home with HH and no HH preference at this time. Brother plans to stay a couple days to assist and then their sister will arrive from [place] to stay a couple days as well. Pt also does not have formal POA and brother confirms he just helped their mother with these documents and plans to assist pt with getting POA formally in place. Pt confirms he only has one child (DEBORAH) and is not . Plan: SW to follow for PT/OT eval to confirm safe plan of home with family and likely need for HH. No referrals sent yet. EDUARD Anaya Discharge Planning/Care Management CM Discharge Assessment Start: 09/30/25 21:25 Freq: Status: Active Protocol: Document 10/01/25 15:09 BF (Rec: 10/01/25 15:11 BF [id number]) Discharge Planning Assessment Assigned Discharge EDUARD Townsend Antenna Rigger Provider Jose Roberto Perea Insurance [employer] DPOA/Assigned none, informally son Destiny Designee Name Advance Directives? No Advance Directives No on File History Provided By Patient,Family Member,Medical Record Has Patient been No admitted in last 30 days? Comment Last admit in 2019 Prior Living House Arrangements Household Members family Comment Lives at home with son Destiny Type of Relies on Others transporation used prior to admit Independent with ADL Yes: mostly 's Is patient alert and Yes: mostly oriented? Needs Assistance Meal Prep,Managing Medications,Home Chores / Shopping With Caregiver for No Another Patient/Family Home with Home Health Preference Barriers to No Discharge Discharge Plan Home with Home Health Transportation Son Destiny Arrangement Additional Comment Anticipate HH pending PT/OT eval Whiteboard Updated Yes in Patient Room with name and ext. # of Director [employer] Review Status In Process Please Provide Date 10/01/25 Initial DC Assessment Was Performed Next Review Type Continued Stay Review
--- NOTE | 2025-10-01 15:19 | PT.IIE ---
Current Diagnoses Hypo-osmolality and hyponatremia (09/30/25) Medical History (Last Reviewed 11/29/24 @ 03:54 by Susanna Sommers MD) Chronic cough Hyperlipidemia Hyponatremia Nose deformity, acquired Pneumothorax Rib fracture Right lower lobe pulmonary nodule Physical Therapy Inpatient Evaluation/Re-Eval M1 PT IP Prior Functional Status Start: 10/01/25 14:45 Freq: NEEDED Status: Active Protocol: Document 10/01/25 15:19 [facility] (Rec: 10/01/25 15:38 [facility] [id number]) Medical Review Prior Functional Status Medical History Yes Reviewed Diet/Fluid Regular Consistency Communication no difficulty Mobility and Gait States he just started trying to use a cane, though it is too short and not adjustable. Activities of Daily assisted by son Living and IADL's Prior Functional Reports he is able to cook but his son does cleaning Level (Other details and laundry, yardwork. ) Social History Household Members family Living Arrangements House Number of Floors ( One Floor Floors) Number of Stairs To 3 with railing, though reports one is broken Enter/Railing? Home Environment Standard Height Toilet Home Equipment Straight Cane Employment Status Retired Additional Social States he doesn't drink water, but drinks 5-6 beers per History Comment day M2 PT-IP Current Condition Start: 10/01/25 14:45 Freq: NEEDED Status: Active Protocol: Document 10/01/25 15:19 [facility] (Rec: 10/01/25 15:38 [facility] [id number]) Physical Therapy Current Condition Current Condition Evaluation Date 10/01/25 Treatment Diagnosis fall on stairs, olecranon fracture Onset Date 09/30/25 M3 PT-IP Subjective Start: 10/01/25 14:45 Freq: NEEDED Status: Active Protocol: Document 10/01/25 15:19 [facility] (Rec: 10/01/25 15:38 [facility] [id number]) Subjective Physical Therapy Visit Type Type Initial Evaluation Visit Start Time 02:49 Visit Stop Time 03:20 Number of SOFTWARE INSTALLER Visits 0 Physical Therapy Visit Comments Patient Comments Pt. sitting up in chair. Willing to work with PT. States minimal elbow pain at rest. Has cane at home but is too short and not adjustable. Lives with his son. Low activity level. States he drinks 5-y beers per day, doesn't drink water. Patient Goals go home Therapy Pain Assessment Pain Present Pain Present Denied Pain M4 PT-IP Mobility and Gait Start: 10/01/25 14:45 Freq: NEEDED Status: Active Protocol: Document 10/01/25 15:19 [facility] (Rec: 10/01/25 15:38 [facility] [id number]) PT-Bed Mobility Assessment Supine to Sit Supine to Sit Moderate Assistance Sit to Supine Sit to Supine Moderate Assistance Scooting Scooting to Edge of Moderate Assistance Bed Scooting Up and Down Moderate Assistance in Bed PT-Transfer Assessment Sit to and From Stand Sit to and from Minimal Assistance Stand Equipment Transfer Assistive Gait Belt,Straight Cane Device Orthotic/Prosthetic Yes Devices or Brace: Transfer Ability Level of Assist Minimal Assistance Gait Assessment Gait Gait Assistance Minimum Assistance,Moderate Assistance Required: Distance (Feet) 12 Able to Maintain Yes Weight Bearing Status During Gait Assistive Devices Assistive Device Gait Belt,Straight Cane Gait Deviations General Gait Pattern Decreased Stride Length,Decreased Feet Clearance,Flexed Trunk,Wide Based Gait Factors Limiting Gait Function Factors Limiting Decreased Activity Tolerance,Incoordination,Poor Gait Function Balance,Poor Safety Awareness Comments Gait Comments Constant cues for safe use of cane and min to mod assist for safety and balance Stair Climbing Assessment Comments Stair Climbing not done at this time Comments PT-Balance Assessment Sitting Balance and Reactions Static Sitting Good Balance Ability Dynamic Sitting Good Balance Ability Standing Balance and Reactions Static Standing Poor Balance Ability Dynamic Standing Poor Balance Ability Comments Other Balance Tests/ tendency to lose balance backward requires min to mod Deviations/Treatment assist for safety : M5 PT-IP Objective Assessments Start: 10/01/25 14:45 Freq: NEEDED Status: Active Protocol: Document 10/01/25 15:19 [facility] (Rec: 10/01/25 15:38 [facility] [id number]) Orientation Orientation/Cognition Level of Alertness Alert Orientation Name,Month,Date,Place,Situation Gross Range of Motion Upper Extremity ROM Assessment Left Impaired Impairments wearing sling. ROM left NT. R UE WNL Lower Extremity ROM Assessment Within Functional Limits Strength Upper Extremity Strength Assessment Within Functional Limits Lower Extremity Strength Assessment Within Functional Limits Comments Strength Comments Left UE not tested due to olecranon fracture Coordination Assessment Gross Coordination Gross Coordination Impaired Sensation Assessment Sensation Gross Sensation WNL Muscle Tone Muscle Tone WNL Yes M7 PT-IP Assessment and Plan Start: 10/01/25 14:45 Freq: NEEDED Status: Active Protocol: Document 10/01/25 15:19 [facility] (Rec: 10/01/25 15:38 [facility] [id number]) PT Summary Assessment and Plan Potential Rehabilitation Good Potential Status of Condition Evolving at Evaluation Summary Impairments Strength,Balance,Bed Mobility,Transfers,Gait,Activity Tolerance Assessment Summary Patient admitted to hospital s/p fall on stairs at home , unsure what happened, just blacked out. Diagnosed with left olecranon fracture and has sling left UE in place. Patient currently has impairments in bed mobility, transfers, and gait; requiring mod assist for bed mobility, min assist sit to stand and min to mod assist for balance and safety with gait. Coordination in use of cane is poor requiring constant cues. At this time patient doesn't not appear safe to go home unless has 24/7 assistance for safety, but will continue to assess. Feel he would currently benefit from SNF rehab to work on general strengthening, bed mobility, transfers, gait, and balance. He has a history of falls and is at high risk for further falls. Goals Bed Mobility Goal Independent Transfer Goal Independent Gait Goal Independent Gait Distance 100 Days to Meet Goals 10 Frequency of Treatment Frequency Of Once a Day Treatment Treatment Plan Physical Therapy Bed Mobility Training,Transfer Training,Gait Training, Treatment Plan Therapeutic Exercise,Balance Retraining,Discharge Planning Other try quad cane or hurrycane next session Recommendations and Next Treatment Focus Precautions Shoulder Precautions Sling Weight Bearing Status Weight Bearing Full Weight Bearing Status Discharge Recommendations PT Discharge Home with 24/7 Assist Available,SNF Rehab,Home vs SNF Recommendations Other Discharge SPC or quad cane Recommendations Transportation Needs Private Vehicle,Wheelchair/Cabulance at Discharge Late Entry for Rosa Perez PT due to missed documentation.
[2025-10-01] MEDS: ALBUTEROL 2.5 MG/3 ML NEB (ADULT) INH (16:15)
[2025-10-01] MEDS: SODIUM CHLORIDE 0.9% 1,000 ML 75 ML IV (18:24)
[2025-10-01 20:07] LABS: Blood Urea Nitrogen 5 mg/dL (9-20); Calcium 7.7 mg/dL (8.4-10.2); Carbon Dioxide 19 mmol/L (22-32); Chloride 98 mmol/L (98-107); Estimated Glomerular Filt Rate > 60 mL/min (>60); Glucose 93 mg/dL (70-99); HEMOLYSIS < 15 (0-50); Potassium 3.6 mmol/L (3.4-5.1); Sodium 124 mmol/L (137-145)
[2025-10-02 00:25] VITALS: BP 140/78; PULSE 90; RESP 18; TEMP 36.1; O2SAT 94
[2025-10-02 03:15] VITALS: BP 134/79; PULSE 98; RESP 18; TEMP 36.1; O2SAT 93
[2025-10-02 05:59] LABS: Add Manual Diff / Slide Review NO; Hematocrit 27.4 % (41-53); Hemoglobin 9.0 g/dL (13.5-17.5); Lymphocytes Absolute Auto 1500 /uL (1100-4500); Mean Corpuscular HGB Conc 32.9 % (30-36); Mean Corpuscular Hemoglobin 26.4 PG (26-34); Mean Corpuscular Volume 80.4 fL (80-100); Platelet Count 536 X10^3/uL (150-400)
[2025-10-02 06:12] LABS: Alanine Aminotransferase 14 IU/L (<50); Albumin 3.0 g/dL (3.5-5.0); Albumin Globulin Ratio 1.0 (1.0-2.8); Alkaline Phosphatase 129 U/L (38-126); Blood Urea Nitrogen 5 mg/dL (9-20); Calcium 7.8 mg/dL (8.4-10.2); Carbon Dioxide 18 mmol/L (22-32); Chloride 101 mmol/L (98-107); Estimated Glomerular Filt Rate > 60 mL/min (>60); Globulin 3.0 g/dL (1.7-4.1); Glucose 74 mg/dL (70-99); HEMOLYSIS < 15 (0-50); Potassium 3.7 mmol/L (3.4-5.1); Sodium 127 mmol/L (137-145); Total Protein 6.0 g/dL (6.3-8.2)
--- NOTE | 2025-10-02 08:13 | P.PN_ITS ---
Subjective Subjective Interval history: Course: 79-year-old male past medical history of alcohol abuse, tobacco abuse, hyperlipidemia and asthma presents with multiple fall and left elbow pain. Per report the patient fell last evening and 3 stairs landing on his left side. The patient started to have his left significant elbow pain. The patient is unsure if he hit his head or not but did have a brief loss of consciousness. The patient quickly awoke and the patient's son called for help. In addition to alcohol the patient does also use marijuana daily. Currently the patient denies any fever, chills, nausea, vomiting, diarrhea, chest pain or shortness of breath. In our emergency room, the patient was hemodynamically stable and was saturating well on room air. Labs were shows a sodium 118 hemoglobin 9.6 but no other signs of sepsis. UA was negative for any UTI. Alcohol level was less than 10. Head CT shows no acute finding. X-ray of the left elbow shows a mildly displaced olecranon fracture. Orthopedic surgery was consulted and a sling was placed. Her ER physician requested admission for correction of sodium and pain control. No NS was given. Repeat sodium is pending. 10/01: Mentally clear. Sodium improving. Left elbow splinted and pain control reasonable. S: Na 127. He was doing fairly well today. His left elbow does hurt. His pain medication is adequate. He denies any dyspnea. O: BP 145/69, pulse 95, respiration 18, SpO2 93% room air. NAD, alert and oriented. Fluent speech. Lungs are clear, normal rate and effort. Heart is regular, no murmur gallop or rub. Abdomen is soft, non distended. Extremities are free of edema. Left arm is sling, good peripheral pulse. IMAGING: [facility] Elbow X-ray: Left Olecranon fracture. A/P: 1. Hypovolemic hyponatremia with admission sodium 118. Improving with salinr=e. 2. Alcohol abuse and possible alcohol withdrawal. Improved. 3. Left olecranon fracture, new. 4. Fall. 5. Anemia. Continue PPI. 6. Asthma. PLAN: -continue saline at 75 mL an hour, q.6 hours sodium. -PT and OT assessment. -Na Q12HR Needs SNF for rehab given olecranon fracture and gait instability. DVT prophylaxis heparin subcu. Exam Vital Signs (past 8 hours): - 10/02/25 00:25 10/02/25 01:00 10/02/25 03:15 Temperature 97.0 F L 96.9 F L Pulse Rate 90 98 H Respiratory Rate 18 18 Blood Pressure 140/78 134/79 Pulse Oximetry 94 93 Oxygen Delivery Method Room Air Oxygen Flow Rate 0 0 Oxygen Delivery Method Room Air Oxygen Flow Rate 0 Objective Labs 10/02/25 05:45 10/02/25 05:45 Labs: Laboratory Results - last 24 hr 10/01/25 10/01/25 10/02/25 14:00 19:40 05:45 WBC 7.4 RBC 3.41 L Hgb 9.0 L Hct 27.4 L MCV 80.4 MCH 26.4 MCHC 32.9 RDW 14.6 Plt Count 536 H Neut % (Auto) 46.3 L Lymph % (Auto) 20.4 L [place] % (Auto) 17.5 H Eos % (Auto) 13.4 H Baso % (Auto) 2.4 H Neut # (Auto) 3400 Lymph # (Auto) 1500 [place] # (Auto) 1300 H Eos # (Auto) 1000 H Baso # (Auto) 200 H Sodium 124 L 124 L 127 L Potassium 3.8 3.6 3.7 Chloride 98 98 101 Carbon Dioxide 20 L 19 L 18 L BUN 4 L 5 L 5 L Creatinine 0.53 L 0.49 L 0.45 L Estimated GFR > 60 > 60 > 60 BUN/Creatinine Ratio 7.5 10.2 11.1 Glucose 101 H 93 74 Calcium 7.8 L 7.7 L 7.8 L Total Bilirubin 0.8 AST 40 ALT 14 Alkaline Phosphatase 129 H Total Protein 6.0 L Albumin 3.0 L Globulin 3.0 Albumin/Globulin Ratio 1.0 [facility] Medical History Right lower lobe pulmonary nodule Chronic cough Hyperlipidemia Hyponatremia Rib fracture Pneumothorax Nose deformity, acquired Social History household members: family alcohol intake: current Assessment & Plan Time-Based Coding :: [TOTAL MINUTES] spent with patient and on the chart (including review of chart, obtaining history, exam, reviewing outside data, placing orders, documenting exam and treatment plan, and counseling patient) on [DATE].
[2025-10-02] MEDS: SODIUM CHLORIDE 0.9% 1,000 ML 75 ML IV ×2 (08:22→20:38)
[2025-10-02 08:24] VITALS: BP 145/69; PULSE 95; RESP 18; TEMP 36.7; O2SAT 93
[2025-10-02] MEDS: SODIUM CHLORIDE 0.9% FLUSH 10 ML IV ×2 (09:56→20:37)
[2025-10-02] MEDS: MULTIVITAMIN 1 TABLET 1 TAB PO (09:56)
[2025-10-02] MEDS: HEPARIN 5,000 UNIT/ML VIAL 5000 UNIT SUBCUT (09:56)
[2025-10-02] MEDS: ACETAMINOPHEN 325 MG TABLET 650 MG PO (09:57)
[2025-10-02 12:26] VITALS: BP 140/77; PULSE 87; RESP 20; TEMP 36.3; O2SAT 94
--- NOTE | 2025-10-02 12:27 | PM.HP.IH.1 ---
History of Present Illness History of Present Illness Date Patient Seen: 10/02/25 Time Patient Seen: 12:05 Date of Onset of Symptoms: 09/29/25 Chief complaint: fell down 3 steps yest; Lt arm/elbow pain Narrative: DOI: 09/29/2025 79-year-old right-hand dominant male with left elbow pain after a fall down 3 stairs. He was seen in the emergency room where a comminuted left olecranon fracture was identified. I was consulted and the patient was placed in a posterior splint was sling. He was admitted for correction of his sodium and pain control. Physical exam reveals a well-developed well-nourished 79-year-old in no acute distress Evaluation of his left elbow demonstrates his in a posterior splint with sling. His sensation is intact to light touch in the radial, ulnar and median nerve distributions. He fires his EPL FPL and interosseous muscles. Multiple views of his left elbow demonstrate a comminuted intra-articular olecranon fracture with less than 2 mm joint displacement. [facility] Medical History Chronic cough Hyperlipidemia Hyponatremia Nose deformity, acquired Pneumothorax Rib fracture Right lower lobe pulmonary nodule Social History household members: family alcohol intake: current Meds Home Medications and Allergies Home Medications ?Medication ?Instructions ?Recorded ?Confirmed ?Type albuterol sulfate 90 mcg/actuation 2 puff inhalation Q6H PRN 01/16/23 02/25/24 Rx aerosol inhaler shortness of breath or wheezing #8.5 grams bupropion HCl 150 mg 24 hr tablet, See Rx Instructions PO QAM #135 02/03/24 02/25/24 Rx extended release (Wellbutrin XL) tabs Allergies Allergy/AdvReac Type Severity Reaction Status Date / Time nut - unspecified Allergy Severe Anaphylaxis Verified 09/30/25 15:05 egg Allergy Unknown Verified 09/30/25 15:05 Penicillins Allergy Unknown Verified 09/30/25 15:05 Exam Vital Signs (past 8 hours): - 10/02/25 08:24 10/02/25 12:26 Temperature 98.0 F 97.4 F L Pulse Rate 95 H 87 Respiratory Rate 18 20 Blood Pressure 145/69 H 140/77 Pulse Oximetry 93 94 Oxygen Flow Rate 0 0 Oxygen Delivery Method Room Air Oxygen Flow Rate 0 Objective Labs 10/02/25 05:45 10/02/25 05:45 Labs: Laboratory Results - last 24 hr 10/01/25 10/01/25 10/02/25 14:00 19:40 05:45 WBC 7.4 RBC 3.41 L Hgb 9.0 L Hct 27.4 L MCV 80.4 MCH 26.4 MCHC 32.9 RDW 14.6 Plt Count 536 H Neut % (Auto) 46.3 L Lymph % (Auto) 20.4 L [place] % (Auto) 17.5 H Eos % (Auto) 13.4 H Baso % (Auto) 2.4 H Neut # (Auto) 3400 Lymph # (Auto) 1500 [place] # (Auto) 1300 H Eos # (Auto) 1000 H Baso # (Auto) 200 H Sodium 124 L 124 L 127 L Potassium 3.8 3.6 3.7 Chloride 98 98 101 Carbon Dioxide 20 L 19 L 18 L BUN 4 L 5 L 5 L Creatinine 0.53 L 0.49 L 0.45 L Estimated GFR > 60 > 60 > 60 BUN/Creatinine Ratio 7.5 10.2 11.1 Glucose 101 H 93 74 Calcium 7.8 L 7.7 L 7.8 L Total Bilirubin 0.8 AST 40 ALT 14 Alkaline Phosphatase 129 H Total Protein 6.0 L Albumin 3.0 L Globulin 3.0 Albumin/Globulin Ratio 1.0 Assessment & Plan Assessment and plan (1) Fracture of olecranon process of left ulna: Qualifiers: Encounter type: initial encounter Fracture type: closed Qualified Code(s): S52.022A - Displaced fracture of olecranon process without intraarticular extension of left ulna, initial encounter for closed fracture Status: Acute Plan He is currently immobilized and there is potential for SNF placement Friday or Friday. We will convert to a cast tomorrow in the hospital. For 2 weeks and he should follow up with me in the orthopedic clinic in 2 weeks for repeat x-rays out of the cast. Time-Based Coding :: [TOTAL MINUTES] spent with patient and on the chart (including review of chart, obtaining history, exam, reviewing outside data, placing orders, documenting exam and treatment plan, and counseling patient) on [DATE]. PROFEE [place] Binder Coverer Document charge(s): Yes
[2025-10-02 14:28] LABS: Blood Urea Nitrogen 9 mg/dL (9-20); Calcium 7.9 mg/dL (8.4-10.2); Carbon Dioxide 22 mmol/L (22-32); Chloride 98 mmol/L (98-107); Estimated Glomerular Filt Rate > 60 mL/min (>60); Glucose 107 mg/dL (70-99); HEMOLYSIS 25 (0-50); Potassium 4.3 mmol/L (3.4-5.1); Sodium 126 mmol/L (137-145)
--- NOTE | 2025-10-02 15:26 | CM.DPNOTE ---
DCP note GREEN MEAT GRADER reviewed EMR per PT, rec SNF. able to walk 12 ft. GREEN MEAT GRADER met with pt, brother maki, and son in room/hallway. reviewed recs. family strongly pref SNF if an option, understand pt's hx of ETOH use may be a barrier in placement. open to HH if needed. sister Katie also good contact for coordinating plan ([phone]). pref for [facility] due to proximity to home, will review 2nd/3rd preferences if [facility] cannot accept. understand they are tight on beds right now. pt [place], limited communication. deferred to brother/son for DCP Conversation they agreed to review it with him after this GREEN MEAT GRADER leaves. GREEN MEAT GRADER provided resources for DC post SNF if accepted included senior resources booklet for PP CGs as well as the medicaid LTC fernanda. GREEN MEAT GRADER sent ref to [facility] for review. PASRR needed P: dc to SNF pending acceptance, [facility] reviewing. backup plan of HH with family as potential. will continue to follow closely for DCP Coordination EDUARD Quintanilla
--- NOTE | 2025-10-02 15:34 | PT.IPTN ---
Current Diagnoses Hypo-osmolality and hyponatremia (09/30/25) Displaced fracture of olecranon process without intraarticular extension of left ulna, initial encounter for closed fracture (09/30/25) Physical Therapy Treatment Note M2 PT-IP Current Condition Start: 10/01/25 14:45 Freq: NEEDED Status: Active Protocol: Document 10/02/25 15:34 DLM (Rec: 10/02/25 15:48 DLM Desktop) Physical Therapy Current Condition Current Condition Evaluation Date 10/01/25 Treatment Diagnosis Fall, left olecranon fx, impaired balance Onset Date 09/30/25 M3 PT-IP Subjective Start: 10/01/25 14:45 Freq: NEEDED Status: Active Protocol: Document 10/02/25 15:34 DLM (Rec: 10/02/25 15:48 DLM Desktop) Subjective Physical Therapy Visit Type Type Treatment Note Visit Start Time 15:14 Visit Stop Time 15:34 Notes 20 min Number of BOOKSTORE CLERK Visits 0 Physical Therapy Visit Comments Patient Comments He reports getting very dizzy when ambulating this visit. He complains of feeling very itchy M4 PT-IP Mobility and Gait Start: 10/01/25 14:45 Freq: NEEDED Status: Active Protocol: Document 10/02/25 15:34 DLM (Rec: 10/02/25 15:48 DLM Desktop) PT-Bed Mobility Assessment Supine to Sit Supine to Sit Minimal Assistance Sit to Supine Sit to Supine Standby Assistance Scooting Scooting to Edge of Standby Assistance Bed PT-Transfer Assessment Sit to and From Stand Sit to and from Minimal Assistance,Use of Upper Extremities Stand Equipment Transfer Assistive Gait Belt,Straight Cane Device Transfers Transfer Destination Bed Transfer Technique Stand Step Pivot Transfer Ability Level of Assist Minimal Assistance,Moderate Assistance,Use of Upper Extremities Comments Mobility Comments decreased standing balance static and dynamic Gait Assessment Gait Gait Assistance Moderate Assistance,1 Person Assist Required: Distance (Feet) 55 Assistive Devices Assistive Device Gait Belt,Straight Cane Gait Deviations General Gait Pattern Ataxic,Decreased Stride Length,Decreased Feet Clearance ,Wide Based Gait Factors Limiting Gait Function Factors Limiting Decreased Activity Tolerance,Incoordination,Poor Gait Function Balance,Poor Safety Awareness Comments Gait Comments Decreased standing balance, losses of balance during gait, poor use of cane to compensate, He developed significant dizziness near the end of his gait trail which resolved with seated rest break. Pt requested back to bed to rest after gait. Pt wore his shoes for gait this visit. PT-Balance Assessment Sitting Balance and Reactions Static Sitting Good Balance Ability Dynamic Sitting Good Balance Ability Standing Balance and Reactions Static Standing Poor Balance Ability Dynamic Standing Poor Balance Ability Comments Other Balance Tests/ losses of balance laterally and posteriorly Deviations/Treatment : M5 PT-IP Objective Assessments Start: 10/01/25 14:45 Freq: NEEDED Status: Active Protocol: Document 10/02/25 15:34 DLM (Rec: 10/02/25 15:48 DLM Desktop) Orientation Orientation/Cognition Level of Alertness Alert Orientation Name,Place,Situation Language Function No Deficits Noted Ability Safety Awareness Decreased Safety Awareness Memory Description Short Term Impaired M6 PT-IP Treatment Start: 10/01/25 14:45 Freq: NEEDED Status: Active Protocol: Document 10/02/25 15:34 DLM (Rec: 10/02/25 15:48 DLM Desktop) Physical Therapy Treatment Education Education Provided Safety M7 PT-IP Assessment and Plan Start: 10/01/25 14:45 Freq: NEEDED Status: Active Protocol: Document 10/02/25 15:34 DLM (Rec: 10/02/25 15:48 DLM Desktop) PT Summary Assessment and Plan Summary Impairments Strength,Balance,Bed Mobility,Transfers,Gait,Activity Tolerance Progress Towards Progressing Toward Goals Goals Assessment Summary Minh is alert and resting in bed. He is hard of hearing and needs instructions repeated. He was able to ambulate with the cane into the easley but he got very dizzy by the end of gait. His dizziness resolves with seated rest break. He shows good progress but his decreased standing balance continues to place him at high risk for falls. Recommend SNF rehab at discharge to assist with his functional recovery. Concerned that his fall risk will be challenging for his family to manage at home at this time. No family present today for training or to discuss discharge planning. Goals Bed Mobility Goal Independent Transfer Goal Independent Gait Goal Independent Gait Distance 100 Days to Meet Goals 10 Frequency of Treatment Frequency Of Once a Day Treatment Treatment Plan Physical Therapy Bed Mobility Training,Transfer Training,Gait Training, Treatment Plan Therapeutic Exercise,Balance Retraining,Discharge Planning Other try quad cane or hurrycane next session Recommendations and Next Treatment Focus Precautions Other Precautions sling for left elbow, No WB through elbow Recommendations To Nursing Amount of Assist 1 Person Assist Needed Discharge Recommendations PT Discharge SNF Rehab Recommendations Other Discharge He would need 19/05 assist to discharge home with home Recommendations health Transportation Needs Private Vehicle,Wheelchair/Cabulance at Discharge - PT assist 1
[2025-10-02 16:39] VITALS: BP 154/75; PULSE 83; RESP 18; TEMP 36.6; O2SAT 97
[2025-10-02 20:00] VITALS: BP 130/17; PULSE 83; RESP 16; TEMP 36.6; O2SAT 95
[2025-10-03] VITALS: BP 147/82; PULSE 83; RESP 16; TEMP 36.4; O2SAT 95
[2025-10-03 04:00] VITALS: BP 130/65; PULSE 90; RESP 20; TEMP 36.9; O2SAT 90
[2025-10-03 07:45] LABS: Hematocrit 26.0 % (41-53); Hemoglobin 8.7 g/dL (13.5-17.5); Mean Corpuscular HGB Conc 33.3 % (30-36); Mean Corpuscular Hemoglobin 26.9 PG (26-34); Mean Corpuscular Volume 80.9 fL (80-100); Platelet Count 501 X10^3/uL (150-400)
[2025-10-03 08:00] VITALS: BP 153/87; PULSE 84; RESP 16; O2SAT 93
[2025-10-03] MEDS: MULTIVITAMIN 1 TABLET 1 TAB PO (08:53)
[2025-10-03] MEDS: SODIUM CHLORIDE 0.9% FLUSH 10 ML IV ×2 (08:53→21:10)
[2025-10-03] MEDS: THIAMINE 100 MG TABLET PO (08:53)
[2025-10-03 09:00] VITALS: TEMP 36.6
[2025-10-03] MEDS: SODIUM CHLORIDE 0.9% 1,000 ML 75 ML IV (10:49)
--- NOTE | 2025-10-03 11:20 | OT.IP.EVAL ---
Current Diagnoses Hypo-osmolality and hyponatremia (09/30/25) Displaced fracture of olecranon process without intraarticular extension of left ulna, initial encounter for closed fracture (09/30/25) Past Medical History (Last Reviewed 10/02/25 @ 12:27 by Hillary Umana DO) Chronic cough Hyperlipidemia Hyponatremia Nose deformity, acquired Pneumothorax Rib fracture Right lower lobe pulmonary nodule Occupational Therapy Inpatient Evaluation/Re-Eval M1 OT IP Prior Functional Status Start: 10/03/25 10:57 Freq: Status: Active Protocol: Document 10/03/25 10:57 ABBIE (Rec: 10/03/25 11:19 ABBIE [facility]) Medical Review Prior Functional Status Medical History Yes Reviewed Diet/Fluid Regular Consistency Communication Able to make needs known Mobility and Gait States he just started trying to use a cane, though it is too short and not adjustable. Activities of Daily Pt reports that he was I with BADLs and cooking. He Living and IADL's reports assisting his son who has special needs Prior Functional Reports he is able to cook but his son does cleaning Level (Other details and laundry, yardwork. ) Social History Household Members family Living Arrangements House Number of Floors ( One Floor Floors) Number of Stairs To 3 with railing, though reports one is broken Enter/Railing? Home Environment Standard Height Toilet,Tub/Shower Home Equipment Front Wheel Walker,Straight Cane,Crutches Employment Status Retired Additional Social States he doesn't drink water, but drinks 5-6 beers per History Comment day M2 OT-IP Current Condition Start: 10/03/25 10:57 Freq: Status: Active Protocol: Document 10/03/25 10:57 ABBIE (Rec: 10/03/25 11:19 DEBORAHWVCULLEN [facility]) Occupational Therapy Current Condition Current Condition Evaluation Date 10/03/25 Treatment Diagnosis closed head injury, L olecranon fx, decreased self care Diagnosis Onset Date 09/30/25 M3 OT- IP Subjective and Pain Start: 10/03/25 10:57 Freq: Status: Active Protocol: Document 10/03/25 10:57 ABBIE (Rec: 10/03/25 11:19 ABBIE [facility]) OT- Subjective Occupational Therapy Visit Type Type Initial Evaluation Visit Start Time 10:25 Visit Stop Time 10:50 Occupational Therapy Visit Comments Patient Comments Pt was reclined in bed on entrance of OT and agreeable to participating in OT eval. Patient/Caregiver To go home Goals OT Pain Assessment Pain When Pain Assessed During Mobility Pain Present Pain Present Pain Reported Location left elbow Intensity 6 Scale Used Numeric (0 - 10) M4 OT- IP ADL's Start: 10/03/25 10:57 Freq: Status: Active Protocol: Document 10/03/25 10:57 ABBIE (Rec: 10/03/25 11:19 ABBIE Desktop) OT [id number] Comments OT Self-Feeding not a meal time Comments OT ADL-Grooming General Evaluation Grooming Ability Standby Assistance Comments OT Grooming Comments Pt brushed his hair on setup while EOB OT ADL-Oral Care General Eval Oral Care Ability Standby Assistance Comments Oral Care Comments Pt performed oral hygiene while EOB on setup OT ADL-Dressing General Eval Lower Body Dressing Maximum Assistance Ability Comments OT Dressing Comments Pt is able to doff his socks with his R hand but requires OT to don his socks. OT ADL-Toileting General Evaluation Toileting Ability Contact Guard Assistance Devices Toileting Assistive Urinal Devices Comments OT Toileting Pt uses a urinal while standing EOB with CGA, pt is Comments able to manage his brief in order to use the urinal OT ADL-Bathing Comments OT Bathing Comments not observed M5 OT- IP IADL's Start: 10/03/25 10:57 Freq: Status: Active Protocol: Document 10/03/25 10:57 ABBIE (Rec: 10/03/25 11:[facility]-Instrumental Activities of Daily Living Deficits IADL Deficits Deficits Identified Home Safety Awareness Awareness of Need Decreased Awareness for Assistance at Home Medication Management Medication will likely need assistance especially with L UE being Management Comments impaired Money Management Money Management No Deficits Identified Meal Preparation Meal Preparation will need assist Comments Floodplain Manager Floodplain Manager Caregiver Provides Assist Driving Driving Caregiver Provides Assist Driving Comments Pt reports he does not drive, his cousin assists with his driving needs. M6 OT- IP Functional Cognition Start: 10/03/25 10:57 Freq: Status: Active Protocol: Document 10/03/25 10:57 ABBIE (Rec: 10/03/25 [facility] Cognitive Factors Limiting Selfcare Function Cognitive Ability Level of Alertness Alert Patient Orientation Name,Place,Situation Attention Span Capable of Focused Attention,Capable of Sustained Ability Attention Ability to Follow Able to Follow One Step Commands,Able to Follow Multi- Commands Step Commands Memory Description Short Term Impaired Safety Awareness Underestimates Need for Assistance Executive Function Unable to Curb Inappropriate Speech Ability OT- Vision and Hearing OT- Hearing Assessment OT- Hearing Hearing Impaired Assessment OT- Vision Assessment Vision History Glaucoma Vision Assessment Reports that he has glasses but doesn't use them Comments M7 OT- IP Mobility and Balance Start: 10/03/25 10:57 Freq: Status: Active Protocol: Document 10/03/25 10:57 [facility] (Rec: 10/03/25 11:19 [facility]) OT- Bed Mobility Assessment Supine to Sit Supine to Sit Assist Minimal Assistance Scooting Scooting to Edge of Contact Guard Assistance Bed OT-Transfer Assessment Sit to and From Stand Sit to and from Minimal Assistance Stand Transfers Transfer Ability Minimal Assistance Technique Transfer Destination Chair Transfer Technique Stand Step Pivot Devices Transfer Assistive Gait Belt,Straight Cane Devices Comments Mobility Comments Pt needs vcs for safety. Pt attempted to use the cane in his L hand despite the sling being in place and OT having handed it to his R hand. OT- Balance Assessment Sitting Balance and Reactions Static Sitting Good Balance Ability Dynamic Sitting Good Balance Ability Standing Balance and Reactions Static Standing Poor Balance Ability Dynamic Standing Poor Balance Ability Comments Other Balance Tests/ losses of balance laterally and posteriorly Deviations/Treatment : M8 OT- IP Objective Assessments Start: 10/03/25 10:57 Freq: Status: Active Protocol: Document 10/03/25 10:57 ABBIE (Rec: 10/03/25 11:19 [facility]) OT Gross Range of Motion Upper Extremity Range of Motion Assessment Left Impaired ROM Impairments R UE WFL, L not assessed due to sling and splinting; Pt able to take L thumb to fingertips. OT Strength Hand Photonics Engineer Strength Hand Dominance Right Comments Strength Comments R UE 5/5 overall, L UE not assessed. OT- Coordination Assessment Comments Coordination thumb to fingertips intact B Comments OT Sensation Assessment Comments Summary Comments No decreased sensation reported Edema Edema Present Edema Comments L dorsal palm has excessive edema. OT educated pt on AROM to assist in edema mgmt as well as positioning with a pillow. M9 OT- IP Assessment and Plan Start: 10/03/25 10:57 Freq: Status: Active Protocol: Document 10/03/25 10:57 DEBORAHVIJAYGIBRANYONI (Rec: 10/03/25 11:19 ABBIE Desktop) OT Summary Assessment and Plan Potential Rehabilitation Good Potential Analytic Complexity Low at Evaluation Summary OT Impairments Pain,Range of Motion,Strength,Balance,Functional Cognition,Functional Mobility,Self-Feeding,Grooming, Dressing,Toileting,Bathing,Toilet Transfers,Shower Transfers,Activity Tolerance Progress Towards Progressing Toward Goals Goals Assessment Summary Pt is a 79 yo M who was had a GLF down 3 steps at home resulting in a closed head injury and L olecranon fx. Pts special needs son lives with him and pt reports needing to be able to prepare meals for his son. Pt presents with decreased safety awareness, impaired BADLs, edema L hand, impaired functional mobility, and mild cognitive deficits that may benefit from further assessment. Skilled OT services are appropriate to address these deficits and to promote return towards PLOF. Recommend SNF vs home with assist and HH. Goals Self-Feeding Goal Independent Grooming Goal Independent Dressing Goal Independent,Gaming Dealer,Sock Aid Toileting Goal Independent Bathing Goal Independent Toilet Transfer Goal Independent,Contact Guard Assistance Days to Meet Goals 7 Frequency of Treatment Other frequency 5x/wk Treatment Plan OT Treatment Plan ADL Training,Functional Cognition Training,Functional Mobility,Therapeutic Exercises,Patient/Family Education ,Discharge Planning Other Treatment Edema mgmt techniques L hand, Possible cognitive Recommendations and assessment, ADLs Next Treatment Focus Discharge Recommendations OT Discharge Home with Assistance,Home Health,Home vs SNF Recommendations Transportation Needs Private Vehicle at Discharge
--- NOTE | 2025-10-03 11:30 | PT.IPTN ---
Current Diagnoses Hypo-osmolality and hyponatremia (09/30/25) Displaced fracture of olecranon process without intraarticular extension of left ulna, initial encounter for closed fracture (09/30/25) Physical Therapy Treatment Note M2 PT-IP Current Condition Start: 10/01/25 14:45 Freq: NEEDED Status: Active Protocol: Document 10/02/25 15:34 DLM (Rec: 10/02/25 15:48 DLM Desktop) Physical Therapy Current Condition Current Condition Evaluation Date 10/01/25 Treatment Diagnosis Fall, left olecranon fx, impaired balance Onset Date 09/30/25 M3 PT-IP Subjective Start: 10/01/25 14:45 Freq: NEEDED Status: Active Protocol: Document 10/03/25 11:30 SAK (Rec: 10/04/25 08:17 SAK Laptop) Subjective Physical Therapy Visit Type Type Treatment Note Visit Start Time 11:30 Visit Stop Time 11:55 Number of GEARCASE ASSEMBLER Visits 0 Physical Therapy Visit Comments Patient Comments Patient reports he just got his cast left arm, heavy. Willing to do PT Therapy Pain Assessment Location left elbow Intensity 3 Scale Used Numeric (0 - 10) M4 PT-IP Mobility and Gait Start: 10/01/25 14:45 Freq: NEEDED Status: Active Protocol: Document 10/03/25 11:30 SAK (Rec: 10/04/25 08:17 SAK Laptop) PT-Bed Mobility Assessment Sit to Supine Sit to Supine Minimal Assistance Scooting Scooting to Edge of Minimal Assistance Bed PT-Transfer Assessment Sit to and From Stand Sit to and from Minimal Assistance,Use of Upper Extremities Stand Equipment Transfer Assistive Gait Belt,Straight Cane Device Orthotic/Prosthetic Yes Devices or Brace: Comments Mobility Comments decreased standing static and dynamic balance, tendency to lose balance backward Gait Assessment Gait Gait Assistance Moderate Assistance,1 Person Assist Required: Distance (Feet) 60 Able to Maintain Yes Weight Bearing Status During Gait Assistive Devices Assistive Device Gait Belt,Straight Cane Orthotic/Prosthetic Yes Devices or Brace: Gait Deviations General Gait Pattern Ataxic,Decreased Stride Length,Decreased Feet Clearance ,Wide Based Gait Factors Limiting Gait Function Factors Limiting Decreased Activity Tolerance,Incoordination,Poor Gait Function Balance,Poor Safety Awareness Comments Gait Comments Patient continues to exhibit balance difficulty with standing and with gait, and inadequat use of cane for stability requiring min to mod assit. Patient fatigued after gait requesting back to bed. PT-Balance Assessment Sitting Balance and Reactions Static Sitting Good Balance Ability Dynamic Sitting Good Balance Ability Standing Balance and Reactions Static Standing Poor Balance Ability Dynamic Standing Poor Balance Ability Comments Other Balance Tests/ losses of balance laterally and posteriorly Deviations/Treatment : M5 PT-IP Objective Assessments Start: 10/01/25 14:45 Freq: NEEDED Status: Active Protocol: Document 10/03/25 11:30 SAK (Rec: 10/04/25 08:17 SAK Laptop) Orientation Orientation/Cognition Level of Alertness Alert Orientation Name,Age,Birthday,Month,Date,Year,Day of Week,Place, Situation Language Function No Deficits Noted Ability Safety Awareness Decreased Safety Awareness Memory Description Short Term Impaired M6 PT-IP Treatment Start: 10/01/25 14:45 Freq: NEEDED Status: Active Protocol: Document 10/02/25 15:34 DLM (Rec: 10/02/25 15:48 DLM Desktop) Physical Therapy Treatment Education Education Provided Safety M7 PT-IP Assessment and Plan Start: 10/01/25 14:45 Freq: NEEDED Status: Active Protocol: Document 10/03/25 11:30 SAK (Rec: 10/04/25 08:17 SAK Laptop) PT Summary Assessment and Plan Summary Impairments Strength,Balance,Bed Mobility,Transfers,Gait,Activity Tolerance Progress Towards Progressing Toward Goals Goals Assessment Summary Patient up in chair, just had cast applied 30 min ago. Continues to exhibit balance difficulty with static and dynamic standing with gait, and not use cane effectively for safety. At this time he is not safe to go home without 24/7 assist. Recommend SNF rehab. Goals Bed Mobility Goal Independent Transfer Goal Independent Gait Goal Independent Gait Distance 100 Days to Meet Goals 10 Frequency of Treatment Frequency Of Once a Day Treatment Treatment Plan Physical Therapy Bed Mobility Training,Transfer Training,Gait Training, Treatment Plan Therapeutic Exercise,Balance Retraining,Discharge Planning Other try quad cane or hurrycane next session Recommendations and Next Treatment Focus Recommendations To Nursing Amount of Assist 2 Person Assist Needed Discharge Recommendations PT Discharge SNF Rehab Recommendations Other Discharge He would need 24/7 assist to discharge home with home Recommendations health Transportation Needs Private Vehicle,Wheelchair/Cabulance at Discharge
--- NOTE | 2025-10-03 11:53 | P.PN_ITS ---
Subjective Subjective Interval history: Course: 79-year-old male past medical history of alcohol abuse, tobacco abuse, hyperlipidemia and asthma presents with multiple fall and left elbow pain. Per report the patient fell last evening and 3 stairs landing on his left side. The patient started to have his left significant elbow pain. The patient is unsure if he hit his head or not but did have a brief loss of consciousness. The patient quickly awoke and the patient's son called for help. In addition to alcohol the patient does also use marijuana daily. Currently the patient denies any fever, chills, nausea, vomiting, diarrhea, chest pain or shortness of breath. In our emergency room, the patient was hemodynamically stable and was saturating well on room air. Labs were shows a sodium 118 hemoglobin 9.6 but no other signs of sepsis. UA was negative for any UTI. Alcohol level was less than 10. Head CT shows no acute finding. X-ray of the left elbow shows a mildly displaced olecranon fracture. Orthopedic surgery was consulted and a sling was placed. Her ER physician requested admission for correction of sodium and pain control. No NS was given. Repeat sodium is pending. 10/01: Mentally clear. Sodium improving. Left elbow splinted and pain control reasonable. 10/02: stable. S: Na 127 10/03. He was doing well today. His left elbow does hurt. Ortho will cast today or tomorrow. O: VSS. NAD, alert and oriented. Fluent speech. Lungs are clear, normal rate and effort. Heart is regular, no murmur gallop or rub. Abdomen is soft, non distended. Extremities are free of edema. Left arm is sling, good peripheral pulse.Normal ROM hand and fingers. IMAGING: [facility] Elbow X-ray: Left Olecranon fracture. A/P: 1. Hypovolemic hyponatremia (Solute deficiency) with admission sodium 118. Improving. 2. Alcohol abuse and possible alcohol withdrawal. Improved. 3. Left olecranon fracture, new. 4. Fall. 5. Anemia. Continue PPI. 6. Asthma. PLAN: -continue saline at 75 mL an hour, q.6 hours sodium. -PT and OT assessment. -Cast to arm per ortho before DC -Needs SNF for rehab given olecranon fracture and gait instability. -Monitor Na. ALBERTA: 10/04, SNF. Auth pending. DVT prophylaxis heparin SQ Exam Vital Signs (past 8 hours): - 10/03/25 04:00 10/03/25 08:00 Temperature 98.5 F Pulse Rate 90 84 Respiratory Rate 20 16 Blood Pressure 130/65 153/87 H Pulse Oximetry 90 L 93 Oxygen Flow Rate 0 0 Oxygen Delivery Method Room Air Oxygen Flow Rate 0 Objective Labs 10/03/25 06:25 10/02/25 13:58 Labs: Laboratory Results - last 24 hr 10/02/25 10/03/25 13:58 06:25 WBC 7.9 RBC 3.21 L Hgb 8.7 L Hct 26.0 L MCV 80.9 MCH 26.9 MCHC 33.3 RDW 14.7 Plt Count 501 H Sodium 126 L Potassium 4.3 Chloride 98 Carbon Dioxide 22 BUN 9 Creatinine 0.47 L Estimated GFR > 60 BUN/Creatinine Ratio 19.1 Glucose 107 H Calcium 7.9 L PFSH Medical History Chronic cough Hyperlipidemia Hyponatremia Nose deformity, acquired Pneumothorax Rib fracture Right lower lobe pulmonary nodule Social History household members: family alcohol intake: current Assessment & Plan Time-Based Coding :: [TOTAL MINUTES] spent with patient and on the chart (including review of chart, obtaining history, exam, reviewing outside data, placing orders, documenting exam and treatment plan, and counseling patient) on [DATE].
[2025-10-03 13:24] LABS: Blood Urea Nitrogen 8 mg/dL (9-20); Calcium 8.3 mg/dL (8.4-10.2); Carbon Dioxide 23 mmol/L (22-32); Chloride 99 mmol/L (98-107); Estimated Glomerular Filt Rate > 60 mL/min (>60); Glucose 104 mg/dL (70-99); HEMOLYSIS < 15 (0-50); Potassium 3.9 mmol/L (3.4-5.1); Sodium 128 mmol/L (137-145)
--- NOTE | 2025-10-03 13:31 | PT-IP ANOTE ---
1330: tried to see pt. for PT, just had cast applied and needs to wait for it to dry. Will check back later if time allows.
--- NOTE | 2025-10-03 14:05 | P.PN_ITS ---
Subjective Subjective Date Patient Seen: 10/03/25 Time Patient Seen: 12:00 Interval history: DOI: 09/29/2025 79-year-old right-hand dominant male with left elbow pain after a fall down 3 stairs. He was seen in the emergency room where a comminuted left olecranon fracture was identified. I was consulted and the patient was placed in a posterior splint was sling. He was admitted for correction of his sodium and pain control. Today he states that his pain is well controlled Physical exam reveals a well-developed well-nourished 79-year-old in no acute distress Evaluation of his left elbow demonstrates his skin is intact His sensation is intact to light touch in the radial, ulnar and median nerve distributions. He fires his EPL FPL and interosseous muscles. Multiple views of his left elbow demonstrate a comminuted intra-articular olecranon fracture with less than 2 mm joint displacement. Exam Vital Signs (past 8 hours): - 10/03/25 08:00 10/03/25 09:00 Temperature 97.9 F Pulse Rate 84 Respiratory Rate 16 Blood Pressure 153/87 H Pulse Oximetry 93 Oxygen Flow Rate 0 Oxygen Delivery Method Room Air Oxygen Flow Rate 0 Objective Labs 10/03/25 06:25 10/03/25 12:52 Labs: Laboratory Results - last 24 hr 10/02/25 10/03/25 10/03/25 13:58 06:25 12:52 WBC 7.9 RBC 3.21 L Hgb 8.7 L Hct 26.0 L MCV 80.9 MCH 26.9 MCHC 33.3 RDW 14.7 Plt Count 501 H Sodium 126 L 128 L Potassium 4.3 3.9 Chloride 98 99 Carbon Dioxide 22 23 BUN 9 8 L Creatinine 0.47 L 0.44 L Estimated GFR > 60 > 60 BUN/Creatinine Ratio 19.1 18.2 Glucose 107 H 104 H Calcium 7.9 L 8.3 L PFSH Medical History Chronic cough Hyperlipidemia Hyponatremia Nose deformity, acquired Pneumothorax Rib fracture Right lower lobe pulmonary nodule Social History household members: family alcohol intake: current Assessment & Plan Assessment and plan (1) Fracture of olecranon process of left ulna: Qualifiers: Encounter type: initial encounter Fracture type: closed Qualified Code(s): S52.022A - Displaced fracture of olecranon process without intraarticular extension of left ulna, initial encounter for closed fracture Status: Acute Plan The patient was placed into a plaster splint. He should f/u in one week in the ortho clinic for xrays in the cast. Plan for cast for 2 weeks and then, gentle ROM. Ortho clinic will call patient for appointment. Time-Based Coding :: 30 spent with patient and on the chart (including review of chart, obtaining history, exam, reviewing outside data, placing orders, documenting exam and treatment plan, and counseling patient) on 10/03/25 and placing long arm cast. PROFEE Environmental Project Manager Document charge(s): Yes
--- NOTE | 2025-10-03 14:35 | DIET.CONS ---
Dietary Consultation Note Admission Date: 09/30/2025 19:34 Assessment: 79 y M admitted after multiple falls. Dietitian consulted for alcohol misuse. Met with pt at bedside. Reports low appetite while in hospital. Outside hospital, no changes in appetite, normal 3 meals per day. Reports preparing meals for his son, so eats consistently. Ht: 177.8 cm Wt: 70.307 kg BMI: 22.2 UBW: 74.389 kg on 11/28/24, pt reports UBW of 155# (70 kg) Last BM: 10/01/25 (10/01/25 03:38) MNA: 10 Juan Score: 19 Diet: 09/30/25 Breakfast General (Regular) Diet Diet Modifications: Nutrition Percent Meal Consumed 15% 10/02/25 18:29 Percent Meal Consumed 15 10/01/25 18:35 Labs: RBC 3.21 X10^6/uL (4.5-5.9) L 10/03/25 06:25 Hgb 8.7 g/dL (13.5-17.5) L 10/03/25 06:25 Hct 26.0 % (41-53) L 10/03/25 06:25 Creatinine 0.44 mg/dL (0.66-1.25) L 10/03/25 12:52 Nutrition Diagnosis: Inadequate oral intakes r/t low appetite aeb <50% estimated energy intake for 3 days per PO intakes Interventions: Discussed some food options that sound appetizing to him. Encouraged adequate intakes, focus on protein sources, small freq meals as needed if appetite continues to be low, ONS as needed if PO intakes don't improve to >75% EER: 7312-5424 kcals (25-27 kcals/kg per BMI) 70 g protein (1 g/kg per age) Monitoring/Evaluations: PO intakes Electronically Signed by: Shruti Gallagher 10/03/25 14:35 Clinical Dietitian [address] [address]
--- NOTE | 2025-10-03 14:51 | CM.DPC ---
DCP SNF Planning: Per MD and Ortho Surgeon, pt having new cast placed today and making slow progress. Per PT/OT, recommending SNF at d/c as pt very unsteady and requiring assist. [facility] confirmed that [facility] can accept and willing to submit for auth today although he may only be approved for a couple weeks and pt will not be able to smoke at their facility. Provided updated clinicals towards insurance auth. PASRR done. EDUARD Anaya
[2025-10-03 16:00] VITALS: BP 165/90; PULSE 81; RESP 19; TEMP 36.6; O2SAT 93
[2025-10-03 20:00] VITALS: BP 149/86; PULSE 75; RESP 20; TEMP 36.6; O2SAT 96
[2025-10-04] VITALS: BP 140/78; PULSE 86; RESP 18; TEMP 36.6; O2SAT 95
[2025-10-04 04:00] VITALS: BP 138/79; PULSE 81; RESP 20; TEMP 36.8; O2SAT 95
[2025-10-04 05:35] LABS: Blood Urea Nitrogen 8 mg/dL (9-20); Calcium 8.2 mg/dL (8.4-10.2); Carbon Dioxide 24 mmol/L (22-32); Chloride 98 mmol/L (98-107); Estimated Glomerular Filt Rate > 60 mL/min (>60); Glucose 83 mg/dL (70-99); HEMOLYSIS < 15 (0-50); Potassium 3.6 mmol/L (3.4-5.1); Sodium 127 mmol/L (137-145)
[2025-10-04] MEDS: HEPARIN 5,000 UNIT/ML VIAL 5000 UNIT SUBCUT (09:02)
[2025-10-04] MEDS: THIAMINE 100 MG TABLET PO (09:02)
[2025-10-04] MEDS: MULTIVITAMIN 1 TABLET 1 TAB PO (09:02)
[2025-10-04] MEDS: SODIUM CHLORIDE 0.9% FLUSH 10 ML IV (09:02)
[2025-10-04 12:00] VITALS: BP 138/69; PULSE 91; RESP 20; TEMP 37.1; O2SAT 95
--- NOTE | 2025-10-04 13:26 | OT.IP.TRT ---
Current Diagnoses Hypo-osmolality and hyponatremia (09/30/25) Displaced fracture of olecranon process without intraarticular extension of left ulna, initial encounter for closed fracture (09/30/25) Occupational Therapy Treatment Note M2 OT-IP Current Condition Start: 10/03/25 10:57 Freq: Status: Active Protocol: Document 10/03/25 10:57 ABBIE (Rec: 10/03/25 11:19 ABBIE Desktop) Occupational Therapy Current Condition Current Condition Evaluation Date 10/03/25 Treatment Diagnosis closed head injury, L olecranon fx, decreased self care Diagnosis Onset Date 09/30/25 M3 OT- IP Subjective and Pain Start: 10/03/25 10:57 Freq: Status: Active Protocol: Document 10/04/25 10:43 ABBIE (Rec: 10/04/25 13:25 ABBIE [id number]) OT- Subjective Occupational Therapy Visit Type Type Treatment Note Visit Start Time 10:43 Visit Stop Time 11:14 Occupational Therapy Visit Comments Patient Comments Pt was reclined in bed on entrance of OT. Pt was agreeable to participating in skilled OT tx. Patient/Caregiver To go home Goals OT Pain Assessment Pain Present Pain Present Denied Pain M4 OT- IP ADL's Start: 10/03/25 10:57 Freq: Status: Active Protocol: Document 10/04/25 10:43 ABBIE (Rec: 10/04/25 13:25 ABBIE [id number]) OT [id number] Comments OT Self-Feeding not a meal time Comments OT ADL-Grooming Comments OT Grooming Comments not observed OT ADL-Oral Care Comments Oral Care Comments not observed OT ADL-Dressing General Eval Upper Body Dressing Maximum Assistance Ability Lower Body Dressing Standby Assistance Ability Comments OT Dressing Comments Pt required MAX to change hospital gown. OT educated pt on use of AE for LB socks, pt was able to use with MIN A, however, pt stated I think it would be easier to do it myself. Pt then demonstrated don/doff socks 1 handed while sitting in chair with S. This is an improvement from his ability yesterday. OT ADL-Toileting Comments OT Toileting not observed Comments OT ADL-Bathing Bathing Type Bathing Type Sponge Bath General Evaluation Bathing Ability Minimal Assistance Areas Needing Wash/Dry Upper Body Assistance Comments OT Bathing Comments Pt performed sponge bath while sitting EOB. Pt needed vcs for completeness. Pt declined washing his feet. M5 OT- IP IADL's Start: 10/03/25 10:57 Freq: Status: Active Protocol: Document 10/03/25 10:57 ABBIE (Rec: 10/03/25 11:19 ABBIE Desktop) OT-Instrumental Activities of Daily Living Deficits IADL Deficits Deficits Identified Home Safety Awareness Awareness of Need Decreased Awareness for Assistance at Home Medication Management Medication will likely need assistance especially with L UE being Management Comments impaired Money Management Money Management No Deficits Identified Meal Preparation Meal Preparation will need assist Comments Parts Administrator Parts Administrator Caregiver Provides Assist Driving Driving Caregiver Provides Assist Driving Comments Pt reports he does not drive, his cousin assists with his driving needs. M6 OT- IP Functional Cognition Start: 10/03/25 10:57 Freq: Status: Active Protocol: Document 10/04/25 10:43 ABBIE (Rec: 10/04/25 13:25 [facility] [id number]) Cognitive Factors Limiting Selfcare Function Cognitive Ability Level of Alertness Alert Patient Orientation Name,Place,Situation Attention Span Capable of Focused Attention,Capable of Sustained Ability Attention Ability to Follow Able to Follow One Step Commands,Able to Follow Multi- Commands Step Commands Memory Description Short Term Impaired Safety Awareness Underestimates Need for Assistance Executive Function Unable to Curb Inappropriate Speech Ability Cognitive Tests SLUMS Pt scored 12/30 on SLUMS which is indicative of dementia. Pt was unable to state day of week, could name 9 animals in 60 seconds, was able to state 0/5 words after short time, was unable to correctly label the clock, and was able to answer 1/4 questions for the short story. Cognitive Comments Cognitive Assessment Pt demonstrates safety awareness concerns. Pt with Comments impaired STM and working memory. OT- Vision and Hearing OT- Hearing Assessment OT- Hearing Hearing Impaired Assessment OT- Vision Assessment Vision History Glaucoma Vision Assessment Reports that he has glasses but doesn't use them Comments M7 OT- IP Mobility and Balance Start: 10/03/25 10:57 Freq: Status: Active Protocol: Document 10/04/25 10:43 ABBIE (Rec: 10/04/25 13:25 [facility] [id number]) OT- Bed Mobility Assessment Supine to Sit Supine to Sit Assist Minimal Assistance Scooting Scooting to Edge of Contact Guard Assistance Bed OT-Transfer Assessment Sit to and From Stand Sit to and from Minimal Assistance,Use of Upper Extremities Stand Transfers Transfer Ability Minimal Assistance Technique Transfer Destination Chair Transfer Technique Stand Step Pivot Devices Transfer Assistive Gait Belt,Straight Cane Devices Comments Mobility Comments Pt needs vcs for safety awareness and hand position during functional tfs. OT- Balance Assessment Sitting Balance and Reactions Static Sitting Good Balance Ability Dynamic Sitting Good Balance Ability Standing Balance and Reactions Static Standing Poor Balance Ability Dynamic Standing Poor Balance Ability M8 OT- IP Objective Assessments Start: 10/03/25 10:57 Freq: Status: Active Protocol: Document 10/03/25 10:[address] [facility] (Rec: 10/03/25 11:19 [facility] Desktop) OT Gross Range of Motion Upper Extremity Range of Motion Assessment Left Impaired ROM Impairments R UE WFL, L not assessed due to sling and splinting; Pt able to take L thumb to fingertips. OT Strength Hand Tank Welder Strength Hand Dominance Right Comments Strength Comments R UE 5/5 overall, L UE not assessed. OT- Coordination Assessment Comments Coordination thumb to fingertips intact B Comments OT Sensation Assessment Comments Summary Comments No decreased sensation reported Edema Edema Present Edema Comments L dorsal palm has excessive edema. OT educated pt on AROM to assist in edema mgmt as well as positioning with a pillow. M9 OT- IP Assessment and Plan Start: 10/03/25 10:57 Freq: Status: Active Protocol: Document 10/04/25 10:[address] [facility] (Rec: 10/04/25 13:25 [facility] [id number]) OT Summary Assessment and Plan Potential Rehabilitation Good Potential Analytic Complexity Low at Evaluation Summary OT Impairments Pain,Range of Motion,Strength,Balance,Functional Cognition,Functional Mobility,Self-Feeding,Grooming, Dressing,Toileting,Bathing,Toilet Transfers,Shower Transfers,Activity Tolerance Progress Towards Progressing Toward Goals Goals Assessment Summary Pt was agreeable to participating in skilled OT services. OT educated pt on edema mgmt for his L hand. Pt does not understand the purpose of this despite extensive explanation, will continue to review. OT encouraged AROM of L digits to prevent stiffness and improve edema. Pt demonstrated LB dressing with socks with improved I today using one handed technique. Pt was able to bathe with min A requiring vc for completeness. Pt was left up in recliner with all needs met and in reach. Pt with chair alarm set and nsg notified. Recommend SNF on dc. Goals Self-Feeding Goal Independent Grooming Goal Independent Dressing Goal Independent,[employer] Truck Driver,Sock Aid Toileting Goal Independent Bathing Goal Independent Toilet Transfer Goal Independent,Contact Guard Assistance Days to Meet Goals 7 Frequency of Treatment Other frequency 5x/wk Treatment Plan OT Treatment Plan ADL Training,Functional Cognition Training,Functional Mobility,Therapeutic Exercises,Patient/Family Education ,Discharge Planning Other Treatment Edema mgmt techniques L hand, ADLs Recommendations and Next Treatment Focus Discharge Recommendations OT Discharge Home with Assistance,Home Health,Home vs SNF Recommendations Transportation Needs Private Vehicle at Discharge
--- NOTE | 2025-10-04 13:36 | P.DS_ITS ---
History of Present Illness History of Present Illness Date Patient Seen: 10/04/25 Time Patient Seen: 13:37 Chief complaint: fell down 3 steps yest; Lt arm/elbow pain Narrative: 79-year-old male past medical history of alcohol abuse, tobacco abuse, hyperlipidemia and asthma presents with multiple fall and left elbow pain. Per report the patient fell last evening and 3 stairs landing on his left side. The patient started to have his left significant elbow pain. The patient is unsure if he hit his head or not but did have a brief loss of consciousness. The patient quickly awoke and the patient's son called for help. In addition to alcohol the patient does also use marijuana daily. Currently the patient denies any fever, chills, nausea, vomiting, diarrhea, chest pain or shortness of breath. In our emergency room, the patient was hemodynamically stable and was saturating well on room air. Labs were shows a sodium 118 hemoglobin 9.6 but no other signs of sepsis. UA was negative for any UTI. Alcohol level was less than 10. Head CT shows no acute finding. X-ray of the left elbow shows a mildly displaced olecranon fracture. Orthopedic surgery was consulted and a sling was placed. Her ER physician requested admission for correction of sodium and pain control. No NS was given. Repeat sodium is pending. Discharge Providers Provider Date of admission: 09/30/25 19:34 Discharge Date: 10/04/25 Primary care physician: Jose Roberto Perea MD Consults: 09/30/25 19:34 Consult to Occupational Therapy Evaluate & Treat Comment: Physician Instructions: Evaluate and treat Consult to Physical Therapy Evaluate & Treat Comment: Physician Instructions: Evaluate and Treat 09/30/25 19:35 Consult to Dietitian, Adult Routine Comment: Reason For Exam: alcohol abuse 10/03/25 07:49 Consult to Orthopedic Surgery Routine Comment: Consulting Provider: Hillary Umana Reason for consultation: elbow fracture Has provider been notified: Yes Discharge provider: Apoorva Sams MD Summary Hospital Course Hospital Course: 10/01: Mentally clear. Sodium improving. Left elbow splinted and pain control reasonable. 10/02: stable. S: Na 127 10/03. He was doing well today. His left elbow does hurt. Ortho will cast today or tomorrow. 10/04: Plaster cast placed yesterday. Patient is asking to smoke. [facility]: Left Olecranon fracture. A/P: 1. Hypovolemic hyponatremia (Solute deficiency) with admission sodium 118. Stabilized at 1:27 a.m. on discharge. 2. Alcohol abuse and possible alcohol withdrawal. Improved. 3. Left olecranon fracture, treated by Orthopedics and will follow with them. 4. Fall. 5. Anemia. 8.7 on 10/03. Continue PPI. 6. Asthma. PLAN: -stopped IV saline -PT and OT assessment recommended group home facility -ortho follow-up -Needs SNF for rehab given olecranon fracture and gait instability. -Monitor Na and Hgb at group home facility.. Status at Discharge Cognitive/behavioral status at discharge: at baseline, oriented Functional status at discharge: uses cane/walker Overall status at discharge: patient is progressing back to baseline Time Spent with Patient Time spent: Less than 30 minutes Exam Vital Signs (past 8 hours): Oxygen Delivery Method Room Air Oxygen Flow Rate 0 Narrative Exam Narrative: NAD, alert and oriented. Fluent speech. Lungs are clear, normal rate and effort. Heart is regular, no murmur gallop or rub. Extremities are free of edema. Left arm is in a plaster cast, good peripheral pulse.Normal ROM hand and fingers. Objective Labs 10/03/25 06:25 10/04/25 04:30 Labs: Laboratory Results - last 24 hr 10/04/25 04:30 Sodium 127 L Potassium 3.6 Chloride 98 Carbon Dioxide 24 BUN 8 L Creatinine 0.44 L Estimated GFR > 60 BUN/Creatinine Ratio 18.2 Glucose 83 Calcium 8.2 L [facility] Medical History Chronic cough Hyperlipidemia Hyponatremia Nose deformity, acquired Pneumothorax Rib fracture Right lower lobe pulmonary nodule Social History household members: family alcohol intake: current Discharge Plan Discharge Plan Patient Disposition: SNF Transfer to: [facility] Under care of provider: Follow up with facility special forces medical sergeant Discharge orders & Medications Prescriptions: New hydrocodone-acetaminophen 5-325 mg Tablet 1 tab PO 3-4XD Qty: 30 0RF acetaminophen 325 mg Tablet 650 mg PO Q6H PRN (Reason: Fever/Mild Pain (1-3)) Qty: 30 0RF multivitamin with folic acid [Tab-A-Linda] 400 mcg Tablet 1 tab PO DAILY Qty: 30 0RF albuterol sulfate 2.5 mg /3 mL (0.083 %) Solution For Nebulization 2.5 mg INH [id number] PRN (Reason: pt home medication) Qty: 60 0RF triamcinolone acetonide 0.5 % Cream 1 applic topical BID PRN (Reason: Irritation) Qty: 30 0RF thiamine mononitrate (vit B1) 100 mg Tablet 100 mg PO DAILY Qty: 30 0RF Continued albuterol sulfate 90 mcg/actuation HFA aerosol inhaler 2 puff inhalation Q6H PRN (Reason: shortness of breath or wheezing) Qty: 8.5 3RF Discontinued bupropion HCl [Wellbutrin XL] 150 mg tablet extended release 24 hr See Rx Instructions PO QAM Qty: 135 1RF Rx Instructions: t1 tab po daily for 2 weeks, then increase to 2 tabs po thereafter. Follow up/Referrals: Jose Roberto Perea MD [Primary Care Provider, Family Practice] Diet/Activity/Treatments Diet: Regular Liquid consistency: Normal/Thin Food texture: Regular [facility] Reason for rehabilitation: Recovery r/t decondition Rehab type: Physical therapy and Occupational therapy Visit Report/Discharge Packet Stand Alone Forms: Patient Portal/API Discharge Data Primary Care Provider: Jose Roberto Perea
--- NOTE | 2025-10-04 14:07 | CM.DPNOTE ---
DCP Continued: Reviewed EMR and team rounds for pt?s medical status. Per hospitalist, pt cleared for discharge to SNF when auth obtained. Per [facility] Admissions, pt auth obtained and transport arranged for 1445. SANITARY LANDFILL OPERATOR sent PASRR, Med list, and Rx to Admissions via secure email, placed in transfer packet. RN report# provided to pt RN. SANITARY LANDFILL OPERATOR discussed discharge and transport time with pt, pt verbalized understanding and agreement. Plan: [facility] via facility van at 1445. CM Team will continue to follow for coordination of discharge plans. SHAWNA Botello
--- NOTE | 2025-10-04 15:30 | PC.NURSE ---
transfer: Pt feels ready to transfer to facility today. Had arm splinted/casted yesterday, it is sl snugger on the distal/hand side. Hand is swollen. Lt arm has been elevated. Can move fingers, no sensation changes. Report called to [facility] admitting nurse. Reviewed hospital course. Questions answered. [facility].
== END 2025-10-04 14:30 | DRG 641 ==
LOC: ED 15:06 → AC 19:35
PROVIDERS: Hospitalist; Internal Medicine; Admitting Provider Internal Medicine; Emergency Provider Emergency Medicine; PCP Family Medicine; Referring Provider Emergency Medicine; Visit Provider Internal Medicine
DX: E87.1 Hypo-osmolality and hyponatremia (principal); F10.139 Alcohol abuse with withdrawal, unspecified; S52.032A Displaced fracture of olecranon process with intraarticular extension of left ulna, initial encounter for closed fracture; E86.0 Dehydration; F12.90 Cannabis use, unspecified, uncomplicated; D64.9 Anemia, unspecified; J45.909 Unspecified asthma, uncomplicated; R26.89 Other abnormalities of gait and mobility; R55 Syncope and collapse; F17.200 Nicotine dependence, unspecified, uncomplicated; W10.9XXA Fall (on) (from) unspecified stairs and steps, initial encounter; Y90.0 Blood alcohol level of less than 20 mg/100 ml; Z91.81 History of falling
CPT/HCPCS: 29105; 36415; 70450; 73080; 80048; 80053; 80320; 81001; 83735; 84295; 84484; 85025; 85027; 85610; 93005; 94640; 97116; 97129; 97162; 97165; 97530; 97535; 99284; A9270; J1171; J1644; J2060; J3475; J7030; J7613